=== PATIENT | female | born 1975 | race Caucasian/White ===

== ENCOUNTER 2019-06-10 10:22 | Emergency (ER) | payer SELFPAY ==
[2019-06-10 10:25] VITALS: BP 165/103; PULSE 75; RESP 14; TEMP 36.1; O2SAT 99; BMI 43.0
--- NOTE | 2019-06-10 10:37 | EKG12_ITS ---
Test Reason : CHEST OTHER Blood Pressure : / mmHG Vent. Rate : 067 BPM Atrial Rate : 067 BPM P-R Int : 166 ms QRS Dur : 088 ms QT Int : 406 ms P-R-T Axes : 019 053 041 degrees QTc Int : 429 ms Normal sinus rhythm Nonspecific T wave abnormality Abnormal ECG Confirmed by GERMAN SCHWARTZ, ROB ([id number]), film and video editor AUBRIE JANG ([id number]) on 06/17/2019 10:59:03 AM Referred By: Confirmed By:GRACE PORTER MD
[2019-06-10 11:01] LABS: Absolute Lymphocyte Count 2.71 X10^3/uL (0.83-4.51); Absolute Neutrophil Count 5.9 X10^3/uL (2.0-7.7); Basophil# 0.06 X10^3/uL; Basophil% 0.6 % (0-1); Eosinophil# 0.34 X10^3/uL; Eosinophils% 3.5 % (0-5); Hematocrit 44.9 % (37-47); Hemoglobin 15.2 g/dL (12.0-15.0); Lymphocyte # 2.71 X10^3/ul (4.0); Lymphocyte % 28.1 % (19-41); Mean Corp Hgb Conc 33.9 g/dL (32-36); Mean Corpuscular Hgb 29.5 pg (27.0-32.0); Mean Corpuscular Volume 87.2 fL (81-99); Monocyte# 0.58 X10^3/uL; NRBC Flagged by Analyzer 0 % (0-5); Neutrophil # 5.91 X10^3/uL (2.7-7.7); Neutrophil % 61.5 % (47-70); Platelet Count 307 K/mm3 (150-450); RBC Distribution Width CV 12.9 % (11.6-14.6); RBC Distribution Width SD 41.2 fl (35.1-43.9); Red Blood Count 5.15 M/mm3 (4.2-5.4); White Blood Count 9.6 K/mm3 (4.4-11.0)
[2019-06-10 11:15] LABS: AST(SGOT) 13 U/L (15-37); Alanine Aminotransfer ALT/SGPT 30 U/L (13-56); Albumin, Serum 3.8 g/dL (3.2-5.0); Alkaline Phosphatase 86 U/L (45-117); Anion Gap 11 (5-15); BUN 9 mg/dL (7-18); BUN/Creat Ratio 9.7 RATIO (10-20); Bilirubin, Direct 0.09 mg/dL (0.00-0.30); Calcium,Total 8.7 mg/dL (8.5-10.1); Chloride 101 mmol/L (98-107); Creatinine, Serum 0.93 mg/dL (0.55-1.02); EST Glomerular Filtration Rate 70 mL/min (>60); Est Glom Filt Rate - Afr Amer 85 mL/min (>60); Estimated Creatinine Clearance 70.91 ml/min; Globulin 4.3 g/dL (2.2-4.2); Glucose 135 mg/dL (74-106); Lipase 132 U/L (73-393); Potassium 3.3 mmol/L (3.5-5.1); Protein, Total 8.1 g/dL (6.4-8.2); Sodium Level 139 mmol/L (136-145)
--- NOTE | 2019-06-10 11:26 | CT_ITS ---
STUDY: CTA CHEST REASON FOR EXAM: Female, 43 years old. Acute substernal chest pain RADIATION DOSAGE (If Supplied By Facility): CTDIvol = ( 15.04 ) mGy, DLP = ( 543.81 ) mGycm TECHNIQUE: The examination was performed with the intravenous administration of IV Isovue 370 100mL. Post-processing of the angiographic images was performed, with multiplanar reformation and 3D reconstruction. Individualized dose optimization techniques were used for this CT. COMPARISON: None. FINDINGS: Normal enhancement of the main pulmonary artery and right and left pulmonary arteries. Normal enhancement of the bilateral peripheral pulmonary arteries. There is no demonstrated pulmonary embolism. Normal thoracic aorta and visualized great vessels. There is no demonstrated aortic dissection. Normal heart and pericardium. Normal mediastinum. Normal hilar regions. There is peribronchial thickening. The lungs are well expanded. Normal pulmonary parenchyma. Normal pleura. Normal chest wall structures. Normal osseous structures. Normal visualized upper abdomen. CT/CTA Chest W/WO Contrast IMPRESSION: No demonstrated PE, or thoracic aortic aneurysm or dissection Chronic bronchitis, no superimposed infiltrate or effusion Electronically Signed: Kenrick Dye MD at 12:21 EDT , Service support ,
--- NOTE | 2019-06-10 11:27 | ED.VISSUMM ---
- ER Visit Summary Date of Service: 06/10/19 Chief Complaint: Chest pain History of Present Illness: The patient is a 43 F who presents the emergency department with right-sided chest pain. Patient states that she has had diarrhea for about a month. Now for the past 5 days she has had a dull ache on the right side of her chest that become sharp knifelike when she moves and takes a deep breath. She notes nausea with eating and feels bloated. She denies any cough or shortness of breath. No fevers. No leg swelling recent surgeries or trips. No history of DVT PE. She is a history of endometriosis and has had laparoscopy and hysterectomy. She is also had C-sections. She is a smoker. She tells me her pain in the right upper quadrant and on the right side of her chest seems to get worse when she eats. Physical Examination: Afebrile vital signs are stable Gen: Well-nourished well-developed Head: Normocephalic atraumatic Eyes: Perrl EOMI ENT: TMs clear no rhinorrhea moist mucous membranes Neck: Supple no lymphadenopathy no JVD nontender CVS: Regular rate rhythm no murmurs normal S1-S2 Respiratory: No distress clear to auscultation bilaterally chest nontender however the patient clutches the right upper chest when she goes to left or take a deep breath. Abdomen: Soft mildly tender in the right upper quadrant nondistended normal bowel sounds no masses Back: Nontender Extremity: Nontender no edema Skin: Normal color no rash Neuro: alert orientated ?3 CN II-XII intact normal strength sensation reflexes gait cerebellar Psych: Normal affect normal mood Test Results: EKG showed a sinus rhythm at a rate of 67 with no concerning features of ACS or ectopy. CBC is normal. Chemistries liver lipase normal. Troponin negative. CT Debbi of the chest was negative for pulmonary embolism. Emergency Department Course and Treatment: Gallbladder ultrasound was unable to be performed as the patient has recently ate and the gallbladder is significantly contracted. The patient's chest pain is most likely musculoskeletal/pleurisy. As far as the discomfort in the right upper quadrant and nausea with eating she will need a formal gallbladder ultrasound. I will write for her to have this arranged. She has no primary care physician so I will provide her the back-up physician's name. Impression: 1. Right chest pain This note was generated with Dragon dictation software. It may contain incorrect words, spelling, and punctuation that were not noted in review of the chart prior to signing ED Disposition - Plan for ED Patient: Disposition: Home or Assisted Living Instructions: Pleurisy, BILIARY COLIC with Gallstone (Presumed) Referrals: Tiffany Guerrero MD [STAFF PHYSICIAN] - As soon as possible
[2019-06-10 13:31] VITALS: BP 147/82; PULSE 78; RESP 16; O2SAT 98
== END 2019-06-10 13:32 | disposition home or self-care (01) ==
PROVIDERS: Emergency Provider Emergency Medicine
DX: R07.89 Other chest pain (principal); R10.11 Right upper quadrant pain; R19.7 Diarrhea, unspecified; R11.0 Nausea; F17.200 Nicotine dependence, unspecified, uncomplicated; Z90.710 Acquired absence of both cervix and uterus
CPT/HCPCS: 71275; 80048; 80076; 83690; 84484; 85025; 93005; 99284; Q9967; A4216

== ENCOUNTER 2022-06-11 06:33 | Emergency (ER) | payer BC, SELFPAY ==
[2022-06-11 06:34] VITALS: BP 177/94; PULSE 63; RESP 18; TEMP 36.6; O2SAT 100; BMI 42.5
[2022-06-11 06:39] VITALS: BP 177/94; PULSE 63; RESP 18; TEMP 36.6; O2SAT 100
--- NOTE | 2022-06-11 06:59 | RAD_ITS ---
INDICATION: back pain EXAMINATION/TECHNIQUE: X-RAY - XR Spine Lumbar Min 4 Views: five-view lumbar spine COMPARISON: None. FINDINGS: VERTEBRAE: No fracture or acute compression deformity. Mild chronic anterior vertebral height loss at the thoracolumbar junction.. No spondylolisthesis. Preservation of the normal lumbar lordosis. No significant facet arthropathy. Mild upper lumbar anterior endplate osteophyte formation. DISCS: Disc spaces are maintained. INCLUDED ABDOMEN: Included bowel gas pattern is non-obstructive. Moderate to large colonic stool burden. RAD/L/S Spine Min 4 Views IMPRESSION: No evidence of lumbar spinal fracture or spondylolisthesis. Mild upper lumbar endplate degenerative change. Moderate to large stool burden. Electronically Signed: Hitesh Asif MD at 7:49 EDT ,
--- NOTE | 2022-06-11 07:02 | EDS_ITS ---
HPI History of Present Illness Chief Complaint: Back Narrative Narrative: Patient is a 46-year-old female who reports a past medical history of bulging disks. She states she has had these since she was 20 and has recurrent back pain from them. She states that is typically manageable with tqiw-hvw-cekvdmp medications. She reports on Saturday that she was just bending down to pick something up and she developed increased pain in her low back mainly on the left side. She states she has been trying to control the pain with lsjm-iuh-aficyiu medications but has been more severe than previous. She states that this morning she was in the shower when she felt a pop. She states this sent a jolt throughout her body and the pains been more severe since that time. She denies any direct trauma any fevers chills nausea vomiting or dysuria or hematuria. She denies any loss of bowel or bladder control or IV drug use. However with her history of bulging disc in the past and now worsening pain she presents for evaluation [facility] Home Medications methocarbamol 500 mg tablet 1,000 mg PO 4X/DAY PRN PRN Muscle pain/spasm #56 tabs 06/11/22 [Rx Last Taken Unknown] oxycodone-acetaminophen 5 mg-325 mg tablet (Percocet) 1 tab PO Q6H PRN pain 3 days #12 tabs 06/11/22 [Rx Last Taken Unknown] Allergy/AdvReac Type Severity Reaction Status Date / Time Penicillins [PCN] AdvReac Hives Verified 06/10/19 10:24 Social History Smoking Status: Current some day smoker tobacco type: e-cigarettes ROS ROS ED Constitutional Constitutional ED: Denies chills or fever(s) ENT ENT ED: Denies sore throat Cardiovascular Cardiovascular: Denies chest pain Respiratory/Chest Respiratory/Chest: Denies cough or dyspnea Gastrointestinal Gastrointestinal: Denies abdominal pain, diarrhea, nausea or vomiting Genitourinary Genitourinary ED: Denies dysuria or hematuria Musculoskeletal Musculoskeletal: Reports back pain Integumentary Denies rash Neurologic Neurologic: Denies headache(s) or paresthesias Hematologic/Lymphatic Hematologic/Lymphatic: Denies easy bleeding or easy bruising EXAM Physical Exam Const Vital Signs: 06/11/22 06:34 06/11/22 06:39 Temperature 97.8 F 97.8 F Temperature Source Oral Oral Pulse Rate 63 63 Respiratory Rate 18 18 Blood Pressure 177/94 H 177/94 H Blood Pressure Mean 121 121 Pulse Ox 100 100 Oxygen Delivery Method Room Air Room Air Positive well nourished, well developed and obese General Appearance ED: well developed Nutritional Appearance: obese Eyes PERRL and EOMs intact bilaterally Neck supple Resp normal respiratory effort and clear to auscultation bilaterally Cardio regular rate and regular rhythm Rate: other Other Details: Radial pulses are plus 2 out of 4 bilaterally are equal and symmetric Back/Spine Back/Spine Narrative: No bony deformity or step-off of the thoracic or lumbar spine. However there is midline pain on palpation of the lumbar region. There is also tension and spasm noted of the left paralumbar muscle belly. This pain worsens with extension. There is pain with palpation over top the left piriformis muscle belly as well. No saddle anesthesia. Negative straight leg raise. No clonus or Babinski. Patellar reflexes are plus 2 out of 4 bilaterally. Extremity normal to inspection Neuro oriented x3, CN's II-XII intact bilaterally and no sensory deficits noted Sensorium / Orientation: alert Psych mental status grossly normal Skin no rashes or lesions noted Skin Narrative: No overlying soft tissue changes to suggest trauma or infection MDM MDM MDM Narrative Medical decision making narrative: Patient presented to the ER hypertensive but this is most likely from pain and otherwise with stable vitals. She reported her pain intensified after a bending over motion. She also states there is increased pain with motion indicating this is most likely musculoskeletal in nature. She does not have any red flag symptoms such as loss of bowel or bladder control or high risk behavior such as IV drug use to question epidural abscess or cauda equina syndrome. She has no signs of neurovascular compromise or neuro claudication and therefore do not feel there is need for emergent MRI. Because she has midline pain on palpation a x-ray of the lumbar spine will be obtained to check for compression fracture as well as spinal thesis. At this time her history and exam is most consistent with superficial nerve entrapment from muscle tension/spasm. Therefore she will be given symptomatic care and is otherwise safe for discharge. She will follow-up with orthopedics to discuss need for imaging studies such as MRI if symptoms not improved with symptomatic care Radiography Diagnostic Testing: X-ray of the lumbosacral spine as interpreted by the emergency medicine physician reveals no acute compression fracture or spondylolisthesis Discharge Plan Triage Chief Complaint: Back ED Provider: Andes,Reji Dx/Rx/DC Orders Clinical Impression: Acute lumbosacral myofascial strain, Piriformis syndrome of left side, Bulging lumbar disc Instructions: ED Back Spasm, No Trauma, ED Back Sprain/Strain Prescriptions: New oxycodone-acetaminophen [Percocet] 5-325 mg tablet 1 tab PO Q6H PRN (Reason: pain) 3 Days Qty: 12 0RF methocarbamol 500 mg tablet 1,000 mg PO 4X/DAY PRN PRN (Reason: Muscle pain/spasm) Qty: 56 1RF Primary Care Provider: Care Physician,No Primary Referrals: Sukhjinder Hurst DO [Med Staff - Active Staff] - Care Physician,No Primary [Primary Care Provider] - Activity Restrictions/Additional Instructions: Please continue to stretch and heat your low back to help reduce pain and speed healing. If you are not having improvement after this type of treatment along with the prescribed medication he may need to follow-up with orthopedics to discuss need for further testing such as MRI to further evaluate the cause of your back pain. Please return to the ER should you have any further concerns Disposition Disposition: Home, Self Care
[2022-06-11] MEDS: Ondansetron ODT 4 MG Tablet PO (07:35)
[2022-06-11] MEDS: Morphine 4 MG/ML Syringe 8 MG IM (07:36)
[2022-06-11] MEDS: dexAMETHasone 10 MG/ML Vial IM (07:36)
[2022-06-11] MEDS: Orphenadrine 60 MG/2 ML Ampul IM (07:36)
[2022-06-11 08:17] VITALS: BP 171/82; PULSE 64; RESP 18; O2SAT 98
== END 2022-06-11 08:17 | disposition home or self-care (01) ==
PROVIDERS: Emergency Provider Emergency Medicine; Visit Provider Emergency Medicine
DX: S39.012A Strain of muscle, fascia and tendon of lower back, initial encounter (principal); M51.26 Other intervertebral disc displacement, lumbar region; F17.210 Nicotine dependence, cigarettes, uncomplicated; X58.XXXA Exposure to other specified factors, initial encounter
CPT/HCPCS: 72110; 96372; 99283

== ENCOUNTER → 2022-07-03 | Outpatient (CLI) | payer BC, SELFPAY ==
--- NOTE | 2022-07-03 10:45 | MRI_ITS ---
ACR Level 3 findings have been noted. An addendum which confirms receipt of the report will follow. HISTORY: Spinal stenosis, back and left leg pain x3 weeks. TECHNIQUE: Multiplanar and multisequence MR images of the lumbar spine were obtained without intravenous contrast. 153 images. COMPARISON: XR 06/11/2022. FINDINGS: VERTEBRAE: For the purposes of this report, the lowest intervertebral disc level is designated as L5-S1. Mild degenerative bone marrow endplate changes of T11-T12, T12-L1, L1-2, and L2-3. Vertebral body heights maintained. ALIGNMENT: No significant anterior or posterior subluxation. CONUS: 5 mm x 1.4 cm x 2.3 cm mildly STIR hyperintense and T1 isointense mass in the ventral spinal canal at the T11-12 level displacing and compressing the conus medullaris dorsally with severe spinal canal stenosis. Mass appears contiguous with the disc extrusion and migration at T12-L1 on T1 images but appears separate on T2-weighted images. INTERVERTEBRAL DISCS: T12-L1: Moderate right paracentral disc extrusion with superior migration abutting the mass at the conus with facet arthropathy resulting in moderate-severe central canal stenosis, right nerve root impingement in the thecal sac, and no significant foraminal narrowing. L1-2: Right paracentral disc protrusion with right L2 nerve root impingement and facet arthropathy resulting in mild central canal stenosis and right foraminal narrowing. L2-3: Mild posterior disc bulge osteophyte complex with facet arthropathy resulting in mild central canal stenosis and bilateral foraminal narrowing. L3-4: No significant posterior disc protrusion or central canal stenosis. Facet arthropathy with mild bilateral foraminal narrowing. L4-5: Minimal posterior disc protrusion with facet arthropathy. No significant central canal stenosis. Mild bilateral foraminal narrowing. L5-S1: Mild left paracentral disc protrusion abutting the left S1 nerve root with facet arthropathy resulting in minimal narrowing of the thecal sac and mild left foraminal narrowing. SOFT TISSUES: Posterior subcutaneous edema noted. MRI/Spine Lumbar (Routine) IMPRESSION: Small mass in the spinal canal compressing the conus medullaris with severe spinal canal stenosis. Recommend correlation with postcontrast imaging to assess for neoplasm such as ependymoma, meningioma, or schwannoma versus benign lesion. Right paracentral disc extrusion at T12-L1 with superior migration abutting the mass compressing the conus medullaris and resulting in moderate-severe spinal canal stenosis with right nerve root impingement. Right paracentral disc protrusion at L1-2 resulting in mild spinal canal stenosis and right nerve root impingement. Mild left paracentral disc protrusion at L5-S1 with left nerve root abutment. Electronically Signed: Annabel Marie MD at 12:32 EST ,
== END | disposition home or self-care (01) ==
PROVIDERS: Referring Provider Orthopaedic Surgery; Visit Provider Orthopaedic Surgery
DX: M48.061 Spinal stenosis, lumbar region without neurogenic claudication (principal); M46.96 Unspecified inflammatory spondylopathy, lumbar region; M47.26 Other spondylosis with radiculopathy, lumbar region
CPT/HCPCS: 72148

== ENCOUNTER → 2023-04-16 | Outpatient (CLI) | payer BC, SELFPAY ==
[2023-04-16 12:28] LABS: Absolute Lymphocyte Count 1.89 X10^3/uL (0.83-4.51); Absolute Neutrophil Count 3.4 X10^3/uL (2.0-7.7); Basophil# 0.03 X10^3/uL; Basophil% 0.5 % (0-1); Eosinophil# 0.16 X10^3/uL; Eosinophils% 2.7 % (0-5); Hematocrit 41.9 % (37-47); Hemoglobin 13.8 g/dL (12.0-15.0); Lymphocyte # 1.89 X10^3/ul (0.83-4.51); Lymphocyte % 31.8 % (19-41); Mean Corp Hgb Conc 32.9 g/dL (32-36); Mean Corpuscular Hgb 28.9 pg (27.0-32.0); Mean Corpuscular Volume 87.8 fL (81-99); Mean Platelet Vol. 10.3 fl (6.2-12.0); Monocyte# 0.49 X10^3/uL; Monocyte% 8.2 % (0-10); NRBC Flagged by Analyzer 0 % (0-5); Neutrophil # 3.36 X10^3/uL (2.7-7.7); Neutrophil % 56.6 % (47-70); Platelet Count 264 K/mm3 (150-450); RBC Distribution Width CV 12.9 % (11.6-14.6); RBC Distribution Width SD 41.7 fl (35.1-43.9); Red Blood Count 4.77 M/mm3 (4.2-5.4); White Blood Count 5.9 K/mm3 (4.4-11.0)
[2023-04-16 13:06] LABS: Vitamin D,25 Hydroxy 31.1 ng/mL
[2023-04-16 13:11] LABS: ALB/GLOB Ratio 0.9 RATIO (0.9-2.4); AST(SGOT) 12 U/L (15-37); Alanine Aminotransfer ALT/SGPT 28 U/L (13-56); Albumin, Serum 3.7 g/dL (3.2-5.0); Alkaline Phosphatase 70 U/L (45-117); Anion Gap 5 (5-15); BUN 15 mg/dL (7-18); BUN/Creat Ratio 23.6 RATIO (10-20); Calcium,Total 8.7 mg/dL (8.5-10.1); Chloride 106 mmol/L (98-107); Cholesterol 163 mg/dL (200); Creatinine, Serum 0.64 mg/dL (0.55-1.02); EST Glomerular Filtration Rate 107 mL/min (>60); Est Glom Filt Rate - Afr Amer 129 mL/min (>60); Globulin 3.9 g/dL (2.2-4.2); Glucose 96 mg/dL (74-106); High Density Lipoprotein 51 mg/dL; Potassium 3.8 mmol/L (3.5-5.1); Protein, Total 7.6 g/dL (6.4-8.2); Sodium Level 139 mmol/L (136-145); Thyroid Stim Hormone (TSH) 4.91 uIU/mL (0.358-3.74); Triglycerides 76 mg/dL; Very Low Density Lipoprotein 15 mg/dL (5-40)
[2023-04-17 08:56] LABS: T4 Free Direct 0.99 ng/dL (0.76-1.46)
== END | disposition home or self-care (01) ==
LOC: BIMLAB 08:27
PROVIDERS: Internal Medicine; PCP Internal Medicine; Referring Provider Internal Medicine; Visit Provider Internal Medicine
DX: I10 Essential (primary) hypertension (principal); F32.1 Major depressive disorder, single episode, moderate; E55.9 Vitamin D deficiency, unspecified; R94.6 Abnormal results of thyroid function studies; Z13.6 Encounter for screening for cardiovascular disorders
CPT/HCPCS: 36415; 80053; 80061; 82306; 84439; 84443; 85025

== ENCOUNTER → 2023-04-18 | Outpatient (CLI) | payer BC, SELFPAY ==
--- NOTE | 2023-04-18 16:04 | BI_ITS ---
MAMMOGRAPHY - BILATERAL SCREENING REASON FOR EXAM: Female, 47 years old. Routine annual screening examination. PERTINENT HISTORY: Aunt with breast cancer. No reported personal history of breast cancer. TECHNIQUE: Digital bilateral breast mayela (3D mammographic acquisition) in the CC and MLO projections. 2-D mediolateral oblique (MLO) and craniocaudad (CC) views of both breasts were obtained. CAD: Full Field Digital Mammography with Computer Added Detection was performed. COMPARISON: None. FINDINGS: Breast Composition: There are scattered areas of fibroglandular density. There are no dominant masses or suspicious calcifications. No other significant abnormalities are identified. BI/SCRN MAMM (CAD)W/MAYELA BILAT IMPRESSION: Negative screening mammogram. Yearly followup mammogram recommended. (A) ASSESSMENT CATEGORY: BIRADS Category 1: Negative. A letter regarding these results will be sent to the patient by the facility within 30 days. Approximately 10% of breast cancers are not detected by mammography. A normal mammogram should not delay biopsy of a clinically suspicious abnormality. Electronically Signed: Jason Butterfield DO at 10:47 EDT ,
== END | disposition home or self-care (01) ==
LOC: OPBI 16:02
PROVIDERS: Referring Provider Internal Medicine; Visit Provider Internal Medicine
DX: Z12.31 Encounter for screening mammogram for malignant neoplasm of breast (principal)
CPT/HCPCS: 77063; 77067

== ENCOUNTER → 2023-05-09 | Outpatient (CLI) | payer BC, SELFPAY ==
[2023-05-09 17:15] LABS: T4 Free Direct 0.97 ng/dL (0.76-1.46); Thyroid Stim Hormone (TSH) 5.98 uIU/mL (0.358-3.74)
[2023-05-09 17:22] LABS: T3 Total - Triiodothyronine 1.19 ng/mL (0.6-1.81)
== END | disposition home or self-care (01) ==
LOC: BIMLAB 15:49
PROVIDERS: PCP Internal Medicine; Referring Provider Internal Medicine; Visit Provider Internal Medicine
DX: R94.6 Abnormal results of thyroid function studies (principal)
CPT/HCPCS: 36415; 84439; 84443; 84480

== ENCOUNTER → 2023-06-06 | Outpatient (CLI) | payer BC, SELFPAY ==
[2023-06-06 17:20] LABS: Thyroid Stim Hormone (TSH) 4.94 uIU/mL (0.358-3.74)
== END | disposition home or self-care (01) ==
LOC: BIMLAB 15:33
PROVIDERS: PCP Internal Medicine; Referring Provider Internal Medicine; Visit Provider Internal Medicine
DX: R79.89 Other specified abnormal findings of blood chemistry (principal)
CPT/HCPCS: 36415; 84443

== ENCOUNTER 2023-10-01 06:42 | Day surgery (SDC) | payer BC, SELFPAY ==
[2023-10-01 07:15] VITALS: BP 137/75; PULSE 63; RESP 16; TEMP 37; O2SAT 95; BMI 40.4
[2023-10-01] MEDS: Lactated Ringers 1,000 ML 15 ML IV (07:24)
--- NOTE | 2023-10-01 08:26 | H&P.OPEN ---
HPI - General HPI Narrative SHANNON GALLEGOS, is a 48 F who presents for screening colonoscopy. Patient has never had a colonoscopy in the past. She denies any abdominal pain or nausea or vomiting. She has no blood in the stool. She is not on blood thinners. She has no family history of colon cancer. [facility] Medical History (Updated 09/26/23 @ 12:24 by Ky Brown) Back pain Chronic headaches Electronic cigarette use Elevated TSH Endometriosis History of back problems Hypertension Seasonal allergies Vitamin D deficiency Wears partial dentures Home Medications NK 10/01/23 [History Last Taken Unknown] Allergy/AdvReac Type Severity Reaction Status Date / Time Penicillins [PCN] AdvReac Hives Verified 10/01/23 07:14 Family History (Updated 09/04/23 @ 11:50 by Sindi Merlos) Father Hypertension Diabetes Rheumatoid arthritis Sleep apnea Colon polyps Mother Diabetes Cancer Skin cancer Daughter Thyroid cancer Aunt Breast cancer Grandmother Cancer pancreatic Surgical History delivery delivered H/O: hysterectomy Social History household members: none current occupational status: employed current occupation: [employer] Smoking Status: Current every day smoker tobacco type: e-cigarettes Electronic Cigarette Use: with nicotine alcohol intake: current alcohol intake frequency: holidays/special occasions only substance use type: does not use what type of physical activity do you participate in: walking frequency: daily seatbelt use: sometimes do you feel safe at home: Yes Past Medical/Surgical History Planned Operation Planned Operative Procedure/s: COLONOSCOPY Previous Hospitalizations/Surgeries HX Hospitalizations: No Any Problems With Anesthesia: Yes (PONV) You/Your Family Experience Fever (Hyperthermia) With Anes: No Cholinesterase deficiency: No Cardiovascular Hx Hypertension: No Respiratory Hx Sleep Apnea: No Hx Respiratory Tract Infection/Cold (presently): No Do You Snore Loudly (louder than talking or can be heard): No Do You Often Feel Tired/ Fatigued/ Sleepy Dring Daytime?: No Has Anyone Observed You Stop Breathing During Sleep?: No Result (for STOP score): Negative Smoking Status: Current every day smoker Neurological Does patient have nerve stimulator: No Miscellaneous Recent Exposure to Contagious Disease: No Allergies Penicillins [PCN] Adverse Reaction (Verified 10/01/23 07:14) Hives Discharge After D/C, Where Do you Plan to Go: Return Home Vital Signs Vital Signs Vital Signs: 10/01/23 07:15 10/01/23 07:15 Temperature 98.6 F Temperature Source Temporal Pulse Rate 63 Respiratory Rate 16 Respiratory Pattern Normal Blood Pressure 137/75 H Blood Pressure Mean 95 Blood Pressure Source Monitor Blood Pressure Position Semi-Fowlers Blood Pressure Location Left Forearm Pulse Ox 95 Oxygen Delivery Method Room Air Weight Weight: 243 lb Body Mass Index (BMI) 40.4 Physical Exam Const alert and oriented x3 HEENT normocephalic Eyes PERRL Resp normal respiratory effort and normal air movement Cardio regular rate and regular rhythm GI soft to palpation, non-tender and non-distended Extremity normal to inspection Assessment & Plan Assessment/Plan (1) Encounter for screening for malignant neoplasm of colon: PLAN: I explained endoscopy in detail to the patient. I explained the risks including but not limited to stroke or heart attack with anesthesia, perforation of the GI tract, bleeding, infection. I explained that any of these could necessitate further emergency surgery. The patient understands and all questions were answered sufficiently. The patient wishes to proceed with procedure. Eros Jennings MD Pager: [facility] [address] [place] [address], [address] [place] [address] Office: Surgery Risks - Colonoscopy Risks Include but are not Limited To: Risks include but are not limited to: Bleeding, perforation requiring further surgery, inability to complete colonoscopy requiring barium enema.
--- NOTE | 2023-10-01 08:45 | COLBX_PTH ---
PATIENT: SHANNON GALLEGOS LOC: EN U#:[id number] AGE/SX: 48/F ROOM: RE10/01/[address]: Dr. Eros Jennings MD : 1975 BED: DIS: 10/01/2023 SPEC #: [id number] RECD: 10/01/23 09:40 STATUS: GODWIN FANG #: [id number] NIKKI: 10/01/23 08:[address]: Eros Jennings DEPT: SURGICAL PATHOLOGY RECD BY: Farrah Mendieta ENTERED: 10/01/23 10:14 SP TYPE: COLON BX OTHR DR: Dr. Romina Francois MD Tissues: A - Sigmoid colon biopsy B - Rectum, NOS Procedures: Surgery Specimen Level IV HEADER OPERATION: Colonoscopy - open access, polypectomy PRE-OP DIAGNOSIS: Screening TISSUE SUBMITTED: A - Sigmoid polyp, B - Rectal polyp MICROSCOPIC DIAGNOSIS A. Sigmoid polyp, polypectomy: Tubular adenoma. B. Rectal polyp, polypectomy: Fragments of tubular adenoma. Fragments of fecal material. MEGAN:vielka 10/02/2023 MICROSCOPIC DESCRIPTION Slides are reviewed. GROSS DESCRIPTION A - Received in fixative is one container labeled with the patient's name and designated sigmoid polyp. The specimen consists of a ortega-pink polyp measuring 0.5 x 0.5 x 0.3 cm. The specimen is totally submitted in one cassette. B - Received in fixative is one container labeled with the patient's name and designated rectal polyp. The specimen consists of two fragments of ortega-pink polyp measuring in aggregate 0.9 x 0.8 x 0.4 cm. Multiple fragments of fecal material mixed with ortega-pink soft tissue are also noted. The entire specimen is submitted in one cassette. / MEGAN:vielka 10/01/2023 TC:1 CPT: 52226 x2
[2023-10-01 09:05] VITALS: BP 137/75; BP 137/79; PULSE 67; RESP 16; TEMP 36.3; O2SAT 100
--- NOTE | 2023-10-01 09:08 | OP.COLON_ITS ---
Patient Name: Soco Rocha Procedure Date: 10/01/2023 8:30 AM Date of : 1975 Age: 48 Procedure: Colonoscopy Indications: Screening for colorectal malignant neoplasm Providers: Eros Jennings MD Medicines: Propofol per Anesthesia Patient Profile: This is a 48 year old female. Refer to note in patient chart for documentation of history and physical. Last Colonoscopy: none. The patient's first colonoscopy is today. Complications: No immediate complications. Procedure: Pre-Anesthesia Assessment: - Prior to the procedure, a History and Physical was performed, and patient medications and allergies were reviewed. The patient's tolerance of previous anesthesia was also reviewed. The risks and benefits of the procedure and the sedation options and risks were discussed with the patient. All questions were answered, and informed consent was obtained. Prior Anticoagulants: The patient has taken no anticoagulant or antiplatelet agents. After reviewing the risks and benefits, the patient was deemed in satisfactory condition to undergo the procedure. After I obtained informed consent, the scope was passed under direct vision. Throughout the procedure, the patient's blood pressure, pulse, and oxygen saturations were monitored continuously. The Colonoscope was introduced through the anus and advanced to the cecum, identified by appendiceal orifice and ileocecal valve. The colonoscopy was performed without difficulty. The patient tolerated the procedure well. The quality of the bowel preparation was good. The ileocecal valve, appendiceal orifice, and rectum were photographed. Scope In: 8:40:18 AM Scope Withdrawal Time 0 hours 11 minutes 57 seconds Scope Out: 8:59:44 AM Total Procedure Duration Time 0 hours 19 minutes 26 seconds Findings: Two polyps were found in the rectum and sigmoid colon. The polyps were medium in size. These polyps were removed with a hot snare. Resection and retrieval were complete. The exam was otherwise without abnormality on direct and retroflexion views. Impression: - Two medium polyps in the rectum and in the sigmoid colon, removed with a hot snare. Resected and retrieved. - The examination was otherwise normal on direct and retroflexion views. Recommendation: - Discharge patient to home. - Resume previous diet. - Continue present medications. - Await pathology results. - Repeat colonoscopy in 5 years for surveillance. Procedure Code(s): --- Professional --- 04619, Colonoscopy, flexible; with removal of tumor(s), polyp(s), or other lesion(s) by snare technique Diagnosis Code(s): --- Professional --- Z12.11, Encounter for screening for malignant neoplasm of colon D12.8, Benign neoplasm of rectum D12.5, Benign neoplasm of sigmoid colon CPT copyright 2021 [employer]. All rights reserved. The codes documented in this report are preliminary and upon field reporter review may be revised to meet current compliance requirements. Eros Jennings MD 10/01/2023 9:08:25 AM This report has been signed electronically. Number of Addenda: 0 Note Initiated On: 10/01/2023 8:30 AM
--- NOTE | 2023-10-01 09:08 | OP.CCLET_ITS ---
10/01/2023 Romina Francois Md Re : Colonoscopy procedure for Soco Cedeño Alessandro This procedure was performed on Sunday, October 01, 2023. My impressions and recommendations are as follows: Impressions : - Two medium polyps in the rectum and in the sigmoid colon, removed with a hot snare. Resected and retrieved. - The examination was otherwise normal on direct and retroflexion views. Recommendations : - Discharge patient to home. - Resume previous diet. - Continue present medications. - Await pathology results. - Repeat colonoscopy in 5 years for surveillance. My findings are described in the full procedure note, which is enclosed. If I can be of further assistance, please feel free to contact me at Doctor phone number(s): , Work: . Sincerely, Eros Jennings MD 10/01/2023 9:08:25 AM This report has been signed electronically.
[2023-10-01 09:10] VITALS: BP 137/75; BP 142/82; PULSE 59; RESP 16; O2SAT 100
[2023-10-01 09:15] VITALS: BP 137/75; BP 139/79; PULSE 61; RESP 16; O2SAT 100
[2023-10-01 09:20] VITALS: BP 137/75; BP 147/78; PULSE 60; RESP 16; TEMP 36.3; O2SAT 100
[2023-10-01 09:34] VITALS: BP 137/75
--- NOTE | 2023-10-01 15:36 | PCM.PN.SRG ---
Subjective Subjective The patient had bleeding after colonoscopy today. She reports that she went home and a few hours later she felt like she needed to go the bathroom and it was all blood and she filled the toilet with blood. She had 2 subsequent bloody bowel movements passing large amounts of clot and so she came back. Objective Data Objective Data Vital Signs: Vital Signs Temp Pulse Resp BP Pulse Ox O2 Del Method 97.3 F L 60 16 147/78 H 100 Room Air 10/01/23 09:20 10/01/23 09:20 10/01/23 09:20 10/01/23 09:20 10/01/23 09:20 10/01/23 09:20 Oxygen Delivery Method Room Air Weight: 243 lb Body Mass Index (BMI) 40.4 Intake & Output: Intake and Output for Last 24 Hours 09/29/23 09/30/23 10/01/23 23:59 23:59 23:59 Intake Total 600 / 600 Balance 600 / 600 Assessment & Plan Assessment/Plan (1) Post-polypectomy bleeding: PLAN: The patient is having ongoing bleeding after having a polypectomy this morning during her colonoscopy. I will take her back and perform flexible sigmoidoscopy. One polypectomy site was sigmoid and 1 was in the rectum. I will check out both sites and place clips or inject or cauterize if needed. I discussed this with her in detail and she is in agreement. Eros Jennings MD Pager: [facility] [address] [place] [address], [address] [place] [address] Office:
--- NOTE | 2023-10-01 16:44 | PCM.PN.BLA ---
Progress Note The patient was taken for flexible sigmoidoscopy. The sigmoid polyp site was bleeding with a spurting vessel. 3 clips were placed over this and maintain good hemostasis. The area is irrigated and suctioned dry. The remainder the colon was irrigated and suctioned dry and there was no more active bleeding or clotting. I will check an H&H before she goes home to ensure that she is not anemic at this time. The patient did vomit during the procedure but she was on her side and most of it came out. I will also check a chest x-ray and admit her if there is any concern for aspiration.
[2023-10-01 17:54] LABS: Hematocrit 34.7 % (37-47); Hemoglobin 11.3 g/dL (12.0-15.0)
== END 2023-10-01 09:48 | disposition home or self-care (01) ==
LOC: EN 06:43 → AC 06:44
PROVIDERS: PCP Internal Medicine; Referring Provider Internal Medicine; Visit Provider Surgery
PROC: 0DJD8ZZ Inspection of Lower Intestinal Tract, Via Natural or Artificial Opening Endoscopic (ICD-10-PCS; CPT 45378; principal; 2023-10-01 08:40)
DX: Z12.11 Encounter for screening for malignant neoplasm of colon (principal); D12.5 Benign neoplasm of sigmoid colon; D12.8 Benign neoplasm of rectum; K91.840 Postprocedural hemorrhage of a digestive system organ or structure following a digestive system procedure; I10 Essential (primary) hypertension; F17.290 Nicotine dependence, other tobacco product, uncomplicated; Z83.719 Family history of colon polyps, unspecified
CPT/HCPCS: 45385; 45382; 45334; 85014; 85018; 88305; J2405

== ENCOUNTER → 2024-08-27 | Outpatient (CLI) | payer BC, SELFPAY ==
[2024-08-27 12:24] LABS: Absolute Lymphocyte Count 1.96 X10^3/uL (0.83-4.51); Absolute Neutrophil Count 5.8 X10^3/uL (2.0-7.7); Basophil# 0.05 X10^3/uL; Basophil% 0.6 % (0-1); Eosinophil# 0.14 X10^3/uL; Eosinophils% 1.6 % (0-5); Hematocrit 44.3 % (37-47); Hemoglobin 14.9 g/dL (12.0-15.0); Lymphocyte # 1.96 X10^3/ul (0.83-4.51); Lymphocyte % 22.7 % (19-41); Mean Corp Hgb Conc 33.6 g/dL (32-36); Mean Corpuscular Hgb 29.6 pg (27.0-32.0); Mean Corpuscular Volume 87.9 fL (81-99); Mean Platelet Vol. 10.4 fl (6.2-12.0); Monocyte# 0.62 X10^3/uL; Monocyte% 7.2 % (0-10); NRBC Flagged by Analyzer 0 % (0-5); Neutrophil # 5.83 X10^3/uL (2.7-7.7); Neutrophil % 67.4 % (47-70); Platelet Count 312 K/mm3 (150-450); RBC Distribution Width CV 13.1 % (11.6-14.6); Red Blood Count 5.04 M/mm3 (4.2-5.4); White Blood Count 8.6 K/mm3 (4.4-11.0)
[2024-08-27 12:50] LABS: ALB/GLOB Ratio 0.9 RATIO (0.9-2.4); AST(SGOT) 10 U/L (15-37); Alanine Aminotransfer ALT/SGPT 23 U/L (13-56); Albumin, Serum 3.7 g/dL (3.2-5.0); Alkaline Phosphatase 77 U/L (45-117); Anion Gap 5 (5-15); BUN 13 mg/dL (7-18); BUN/Creat Ratio 19.9 RATIO (10-20); Calcium,Total 8.9 mg/dL (8.5-10.1); Chloride 104 mmol/L (98-107); Cholesterol 188 mg/dL (200); Creatinine, Serum 0.65 mg/dL (0.55-1.02); EST Glomerular Filtration Rate 103 mL/min (>60); Est Glom Filt Rate - Afr Amer 125 mL/min (>60); Globulin 4.1 g/dL (2.2-4.2); Glucose 93 mg/dL (74-106); High Density Lipoprotein 51 mg/dL; Potassium 4.1 mmol/L (3.5-5.1); Protein, Total 7.8 g/dL (6.4-8.2); Sodium Level 134 mmol/L (136-145); Triglycerides 172 mg/dL; Very Low Density Lipoprotein 34 mg/dL (5-40)
== END | disposition home or self-care (01) ==
LOC: BIMLAB 08:15
PROVIDERS: PCP Internal Medicine; Referring Provider Internal Medicine; Visit Provider Internal Medicine
DX: I10 Essential (primary) hypertension (principal); E55.9 Vitamin D deficiency, unspecified; R94.6 Abnormal results of thyroid function studies
CPT/HCPCS: 36415; 80053; 80061; 82306; 84443; 85025

== ENCOUNTER → 2024-08-31 | Outpatient (CLI) | payer BC, SELFPAY ==
--- NOTE | 2024-08-31 17:29 | US_ITS ---
INDICATION: nodule, FH thyroid cancer EXAMINATION: Ultrasound US Thyroid (eg thyroid, parathyroid, parotid) TECHNIQUE: Cordova scale and color doppler imaging was performed of the thyroid gland. COMPARISON: No relevant prior comparison study available FINDINGS: RIGHT THYROID LOBE: 4.9 x 2.4 x 1.7 cm, volume 10.2 mL. Parenchyma: The gland echotexture is heterogeneous. Thyroid vascularity is normal. LEFT THYROID LOBE: 4.5 x 1.6 x 2.0 cm, volume 7.4 mL. Parenchyma: The gland echotexture is heterogeneous. Thyroid vascularity is normal. ISTHMUS: 0.4 cm in maximum AP dimension. Estimated total number of nodules greater than equal to 1 cm: 0. Nurse nodules are described as follows: 1. Location: Right mid Size: 0.7 x 0.6 x 0.5 cm, volume 0.1 mL. Nodule characteristics: Composition: Solid or almost completely solid (2). Echogenicity: Isoechoic (1). Shape: Wider than tall (0). Margins: Smooth (0). Echogenic Foci: None (0). ACR TI-RADS total points: 3. ACR TI-RADS category: 3. 2. Location: [Posterior Size: 0.8 x 0.7 x 0.8 cm, volume 0.2 mL. Nodule characteristics: Composition: Solid or almost completely solid (2). Echogenicity: Hypoechoic (2). Shape: Wider than tall (0). Margins: Smooth (0). Echogenic Foci: None (0). ACR TI-RADS total points: 4. ACR TI-RADS category: 4. LYMPH NODES: No lymphadenopathy is seen in the tissue surrounding the thyroid gland. US/Thyroid IMPRESSION: Heterogeneous thyroid gland with small nodules identified. Based on size and appearance, no specific follow-up is recommended. ACR TI-RADS RECOMMENDATION REFERENCE: Ultrasound-guided fine-needle aspiration, follow-up ultrasound, no further follow-up. *TR 1 (0 points) and TR 2 (2 points): No FNA or follow-up. *TR 3 (3 points): FNA if more than or equal to 2.5 cm in maximum dimension. Follow-up ultrasound in 1, 3, and 5 years if 1.5 to 2.4 cm in maximum dimension. *TR 4 (4-6 points): FNA if more than or equal to 1.5 cm in maximum dimension. Follow-up ultrasound in 1, 2, 3, and 5 years if 1 to 1.4 cm in maximum dimension. *TR 5 (more than or equal to 7 points): FNA if more than or equal to 1 cm in maximum dimension. Follow-up ultrasound every year for 5 years if 0.5 to 0.9 cm in maximum dimension. *TR 3, TR 4, or TR 5 nodules that are below the size threshold for follow-up receive no follow-up. Electronically Signed: Nico Staley MD at 7:16 EST ,
== END | disposition home or self-care (01) ==
LOC: US 17:27
PROVIDERS: PCP Internal Medicine; Referring Provider Internal Medicine; Visit Provider Internal Medicine
DX: E04.1 Nontoxic single thyroid nodule (principal); Z80.8 Family history of malignant neoplasm of other organs or systems
CPT/HCPCS: 76536

== ENCOUNTER → 2024-09-03 | Outpatient (CLI) | payer BC, SELFPAY ==
--- NOTE | 2024-09-03 15:48 | BI_ITS ---
MAMMOGRAPHY - BILATERAL SCREENING REASON FOR EXAM: Female, 49 years old. Routine annual screening examination. PERTINENT HISTORY: Aunt with breast cancer. TECHNIQUE: Digital bilateral breast mayela (3D mammographic acquisition) in the CC and MLO projections. 2-D mediolateral oblique (MLO) and craniocaudad (CC) views of both breasts were obtained. CAD: Full Field Digital Mammography with Computer Added Detection was performed. COMPARISON: Comparison is made with prior study April 18, 2023. FINDINGS: Breast Composition: There are scattered areas of fibroglandular density. There are no dominant masses or suspicious calcifications. Stable small benign-appearing bilateral axillary lymph nodes. No other significant abnormalities are identified. There has been no significant change since the prior study. BI/SCRN MAMM (CAD)W/MAYELA BILAT IMPRESSION: Stable bilateral screening mammogram. Yearly follow-up mammogram recommended. (A) ASSESSMENT CATEGORY: BIRADS Category 2: Benign. A letter regarding these results will be sent to the patient by the facility within 30 days. Approximately 10% of breast cancers are not detected by mammography. A normal mammogram should not delay biopsy of a clinically suspicious abnormality. [id number] Electronically Signed: Tomas Rowe MD at 8:40 EST ,
== END | disposition home or self-care (01) ==
LOC: OPBI 15:48
PROVIDERS: PCP Internal Medicine; Referring Provider Internal Medicine; Visit Provider Internal Medicine
DX: Z12.31 Encounter for screening mammogram for malignant neoplasm of breast (principal)
CPT/HCPCS: 77063; 77067

== ENCOUNTER → 2024-10-22 | Outpatient (CLI) | payer BC, SELFPAY | END | disposition home or self-care (01) | LOC: BIMLAB 16:16 | PROVIDERS: PCP Internal Medicine; Referring Provider Internal Medicine; Visit Provider Internal Medicine | DX: E03.9 Hypothyroidism, unspecified (principal) | CPT/HCPCS: 36415; 84443 ==

== ENCOUNTER → 2025-04-27 | Outpatient (CLI) | payer OTHER, SELFPAY ==
--- OUTSIDE RECORDS SUMMARY | 2025-04-27 23:35 | XMS RPT_ITS | CCD ---
Author Organization [facility] Care Team Providers Care [employer] Name Role Phone ESTEFANIA ZUÑIGA Unavailable Unavailable Unavailable Primary Care Provider Unavailabl e Unavailable Primary Care Provider Unavailabl e Care Physician, No Primary Primary Care Provider Unavailable Care Physician, No Primary Referring Provider Un available Dr. Romina Francois Attending Provider [phone] Dr. Romina Francois Primary Care Provider Dr. Romina Francois Referring Provider [phone] Dr. Romina Francois Primary Care Provider Dr. Romina Francois Attending Provider [phone] Dr. Romina Francois Referring Provider [phone] Sindi Merlos Attending Provider Unavailable Dr. Eros Jennings Attending Provider [phone] Dr. Eros Jennings Other Provider Unavailable Primary Care Provider Unavailabl e GEOVANNA DALEY Attending Unavailable Dr. Romina Francois MD Primary Care Provider [phone] Dr. Romina Francois MD Attending Provider Dr. Romina Francois MD Referring Provider Romina Francois Primary Care Unavailable AlessandroHuy shethia Attending Unavailable Lewis, Romina Referring Unavailable LewisRoimna sheth Attending Unavailable Alessandro, Romina Referring Unavailable Lewis, Romina Primary Care Unavailable Alessandro, Romina Primary Care Unavailable Alessandro, Romina Attending Unavailable Lewis, Romina Referring Unavailable Alessandro, Romina Primary Care Unavailable LewisRomina sheth Attending Unavailable Alessandro, Romina Referring Unavailable Alessandro, Romina Attending Unavailable Romina Francois Referring Unavailable Romina Francois Primary Care Unavailable Meme Santiago Attending Unavailable Romina Francois Referring Unavailable Romina Francois Primary Care Unavailable Alessandro SCHWARTZ, Dr. Vanegas Primary Care Provider [phone] Alessandro SCHWARTZ, Dr. Vanegas Referring Provider Luis APPLICATIONS CHEMIST-CRosa M Attending Provider [phone] Allergies Allergy Classification Reported Allergen(s) Allergy Type Date of Onset Reaction(s) Facility (10 sources) Penicillin; Translations: [PENICILLIN] Drug Allergy 7 [facility] Other [place] (8 sources) Penicillins Propensity to adverse reactions 9 [facility] (1 source) Penicillins Drug allergy (disorder) 5 [facility] Repository Medications Current Medications Medication Drug Class(es) Dates Sig (Normalized) Sig (Original) Blood Pressure Monitor kit (4 sources) Start: 08-27-2024 Blood Pressure Monitor kit Active 0 .Route 1 0 August 27, 2024 10:29am Primary hypertension Essential (primary) hypertension As directed Start: 08-27-2024 Blood Pressure Monitor kit Active 0 .Route 1 August 27, 2024 10:29am As directed Start: 04-11-2023 End: 09-26-2023 Blood Pressure Monitor kit D iscontinued 0 .Route 1 0 April 11, 2023 12:00am September 26, 2023 1:18pm Primary hypertension Essential (primary) hypertension As directed Start: 04-11-2023 End: 09-26-2023 Blood Pressure Monitor kit D iscontinued 0 .Route 1 April 11, 2023 12:00am September 26, 2023 1:18pm As directed cholecalciferol 0.025 mg oral capsule (3 sources) Vitamin D Start: 09-01-2018 Cholecalciferol, Vitamin D3, 25 mcg (1,000 unit) cap Take 1,000 Units by mouth. 09/01/2018 Active Comment on above: Take 1,000 Units by mouth. iv contrast (will be provided with radiology test) (3 sources) Start: 07-12-2022 End: 07-13-2022 inject 1 dose intravenously once iv contrast (will be provided with radiology test) Indications: Thoracic spine tumor MRI TSP Inject, intravenously, once for 1 dose. No IV access, insert saline lock prior to the beginning of sedation, infusion, injection of imaging exam. Discontinue saline lock post exam. If Pt. has a central line or IVAD, may access for administration according to line specific nursing protocol. Once exam is complete flush line and de-access according to line specific nursing protocol in the MR contrast administration guidelines link. 1 Each 0 07/12/2022 07/13/2022 Active Start: 07-12-2022 End: 07-13-2022 iv contrast (will be provide d with radiology test) MRI LSP Inject, intravenously, once for 1 dose. No IV access, insert saline lock prior to the beginning of sedation, infusion, injection of imaging exam. Discontinue saline lock post exam. If Pt. has a central line or IVAD, may access for administration according to line specific nursing protocol. Once exam is complete flush line and de-access according to line specific nursing protocol in the MR contrast administration guidelines link. 1 Each 0 07/12/2022 07/13/2022 Active Start: 07-12-2022 End: 07-12-2022 inject 1 dose intravenously once iv contrast (will be provided with radiology test) Indications: Thoracic spine tumor MRI TSP Inject, intravenously, once for 1 dose. No IV access, insert saline lock prior to the beginning of sedation, infusion, injection of imaging exam. Discontinue saline lock post exam. If Pt. has a central line or IVAD, may access for administration according to line specific nursing protocol. Once exam is complete flush line and de-access according to line specific nursing protocol in the MR contrast administration guidelines link. 1 Each 0 07/12/2022 07/12/2022 Comment on above: MRI TSP Inject, intr avenously, once for 1 dose. No IV access, insert saline lock prior to the beginning of sedation, infusion, injection of imaging exam. Discontinue saline lock post exam. If Pt. has a central line or IVAD, may access for administration according to line specific nursing protocol. Once exam is complete flush line and de-access according to line specific nursing protocol in the MR contrast administration guidelines link. MRI LSP Inject, intr avenously, once for 1 dose. No IV access, insert saline lock prior to the beginning of sedation, infusion, injection of imaging exam. Discontinue saline lock post exam. If Pt. has a central line or IVAD, may access for administration according to line specific nursing protocol. Once exam is complete flush line and de-access according to line specific nursing protocol in the MR contrast administration guidelines link. levothyroxine sodium 0.15 mg oral tablet (5 sources) l-Thyroxine Start: 08-27-19 End: 04-19-20 take 1 tablet by mouth once daily Levothyroxine (Synthroid) 150 mcg tablet Active 150 ug PO daily 90 0 April 19, 2025 3:58pm [place] (Nk) (1 source) Start: 10-01-19 [place] (Nk) Active October 01, 2023 12:00am Completed/Discontinued Medications Medication Drug Class(es) Dates Sig (Normalized) Sig (Original) acetaminophen 325 mg / oxyCODONE hydrochloride 5 mg oral tablet (5 sources) Opioid Agonist Start: 06-11-2022 End: 08-06-2022 oxyCODONE-acetamino phen (PERCOCET) 5-325 mg tablet Take by mouth. 0 06/11/2022 08/06/2022 Discontinued Start: 06-11-2022 take 1 tablet by mendez th every six hours Oxycodone-Acetaminophen (Percocet) 5-325 mg tablet Active 1 TABLET PO EVERY 6 HOURS 12 June 11, 2022 Comment on above: Take by mouth. Blood Pressure Monitor (4 sources) Start: 04-11-2023 End: 09-26-2023 Blood Pressure Monitor Discontinued 0 .Route 1 April 10, 2023 11:00pm September 26, 2023 12:18pm As directed Start: 04-11-2023 Blood Pressure Monitor Active 0 .Route 1 April 11, 2023 12:00am As directed 12 hr dextromethorphan hydrobromide 30 mg / guaiFENesin 600 mg extended release oral tablet (4 sources) Uncompetitive P-wcwmxo-P-aspartate Receptor Antagonist, Sigma-1 Agonist Start: 11-27-2018 End: 08-06-2022 take 1 tablet by mouth twice daily dextromethorphan-guaiFENesin (MUCINEX DM) 30-600 mg per tablet Take 1 tablet by mouth twice daily. 14 tablet 0 11/27/2018 08/06/2022 Discontinued Comment on above: Take 1 tablet by mendez twice daily. diclofenac sodium 50 mg delayed release oral tablet (4 sources) Nonsteroidal Anti-inflammatory Drug Start: 08-08-2018 End: 08-06-2022 take 1 tablet by mouth three times daily diclofenac, EC, (VOLTAREN) 50 mg EC tablet Take 1 tablet by mouth three times daily. 15 tablet 0 08/08/2018 08/06/2022 Discontinued Comment on above: Take 1 tablet by mendez three times daily. hydroCHLOROthiazi de 25 mg oral tablet (9 sources) Thiazide Diuretic Start: 09-01-2018 End: 05-16-2023 hydroCHLOROthiazide 25 mg tablet Take 12.5 mg by mouth. 0 09/01/2018 05/16/2023 Discontinued End: 08-06-2022 hydroCHLOROthiazide (HYDRODI URIL, ESIDRIX) 25 mg tablet hydrochlorothiazide 25 mg tablet 0 08/06/2022 Discontinued Comment on above: hydrochlorothiazide 25 mg tablet Take 12.5 mg by mout h. 12 hr loratadine 5 mg / pseudoephedrine sulfate 120 mg extended release oral tablet (4 sources) alpha-Adrenergic Agonist Start: 2018 End: 2021 take 1 tablet by mouth twice daily loratadine-pseudoep hedrine ER (CLARITIN-D 12) 5-120 mg per tablet Take 1 tablet by mouth twice daily. 24 tablet 0 11/27/2018 08/06/2022 Discontinued Comment on above: Take 1 tablet by mendez twice daily. methocarbamol 500 mg oral tablet (12 sources) Muscle Relaxant Start: 2021 End: 2022 take 2 tablets by mouth four times daily as needed for pain Methocarbamol 500 mg tablet Discontinued 1000 mg PO 4 TIMES DAILY NEEDED as needed for Muscle pain/spasm 56 1 June 11, 2022 7:08am April 11, 2023 1:51pm Start: 06-11-2022 End: 04-11-2023 take 1000 mg by mouth four times daily as needed Methocarbamol Discontinued 1000 MG PO 4 TIMES DAILY NEEDED 56 June 11, 2022 6:08am April 11, 2023 12:51pm Comment on above: TAKE 2 TABLETS BY MO [facility] 4 TIMES DAILY NEEDED FOR MUSCLE PAIN/SPASM methylPREDNISolone 4 mg oral tablet (4 sources) Corticosteroid Start: 2021 End: 2021 methylPREDNISolone (MEDROL DOSE-PACK) 4 mg Dose-Pack TAKE BY MOUTH DIRECTED ON INSIDE OF PACKAGE 0 06/15/2022 08/06/2022 Discontinued Comment on above: TAKE BY MOUTH DIR ECTED ON INSIDE OF PACKAGE naproxen 500 mg oral tablet (4 sources) Nonsteroidal Anti-inflammatory Drug Start: 2021 End: 2021 take 1 tablet by mouth twice daily as needed for pain naproxen (NAPROSYN) 500 mg tablet TAKE 1 TABLET BY MOUTH TWICE DAILY NEEDED FOR PAIN FOR 10 DAYS 0 06/13/2022 08/06/2022 Discontinued Comment on above: TAKE 1 TABLET BY MENDEZ TWICE DAILY NEEDED FOR PAIN FOR 10 DAYS ondansetron 4 mg disintegrating oral tablet (4 sources) Serotonin-3 Receptor Antagonist Start: 2019 End: 2021 take 2 tablets by mouth every eight hours as needed ondansetron orally disintegrating (ZOFRAN ODT) 4 mg disintegrating tablet Take 2 tablets by mouth every 8 hours as needed for Nausea/Vomiting. 12 tablet 0 04/27/2020 08/06/2022 Discontinued Comment on above: Take 2 tablets by mo [facility] every 8 hours as needed for Nausea/Vomiting. 12 hr orphenadrine citrate 100 mg extended release oral tablet (4 sources) Muscle Relaxant Start: 2017 End: 2021 take 1 tablet by mouth twice daily orphenadrine ER (NORFLEX) 100 mg tablet Take 1 tablet by mouth twice daily. 14 tablet 0 08/08/2018 08/06/2022 Discontinued Comment on above: Take 1 tablet by mendez twice daily. oxyCODONE hydrochloride 5 mg oral tablet (11 sources) Opioid Agonist Start: 2021 End: 2022 take 1 tablet by mouth every six hours as needed for pain Oxycodone 5 mg tablet Discontinued 5 mg PO EVERY 6 HOURS as needed for pain 12 3 0 June 11, 2022 April 11, 2023 1:51pm Acute myofascial strain of lumbosacral region Bulging of lumbar intervertebral disc Strain of muscle, fascia and tendon of lower back, initial encounter Other intervertebral disc degeneration, lumbar region pantoprazole 40 mg delayed release oral tablet (4 sources) Proton Pump Inhibitor Start: 2016 End: 2021 take 1 tablet by mouth once daily pantoprazole DR (PROTONIX) 40 mg tablet Take 1 tablet by mouth once daily. 30 tablet 0 07/23/2017 08/06/2022 Discontinued Comment on above: Take 1 tablet by mendez th once daily. Problems Problem Classification Problem Date Documented Date Episodic/Chronic Administrative/social admission (3 sources) Persons encountering health services in other specified circumstances; Translations: [Other reasons for seeking consultation] 04-11-2023 Episodic Complications of surgical procedures or medical care (4 sources) Postoperative hemorrhage; Translations: [Post-polypectomy bleeding] 10-01-2023 Episodic Essential hypertension (15 sources) Hypertensive disorder; Translations: [Essential (primary) hypertension] Onset: 09-20-2024 04-11-2023 Chronic Comment on above: NO PRESCRIBED MEDS Headache; including migraine (7 sources) Tension-type headache, unspecified, intractable; Translations: [Chronic headache disorder] Onset: 08-08-2018 04-11-2023 Episodic Malaise and fatigue (1 source) Lack of energy; Translations: [Other fatigue] 08-27-2024 Episodic Mood disorders (5 sources) Major depressive disorder, single episode, moderate; Translations: [Major depressive affective disorder, single episode, moderate] 04-11-2023 Chronic Neoplasms of unspecified nature or uncertain behavior (3 sources) Neoplastic disease; Translations: [Neoplasm of unspecified behavior of bone, soft tissue, and skin] Episodic Nutritional deficiencies (11 sources) Vitamin D deficiency; Translations: [Vitamin D deficiency, unspecified] Onset: 08-27-2024 04-11-2023 Chronic Other and unspecified benign neoplasm (2 sources) Schwannoma; Translations: [Benign neoplasm of peripheral nerves and autonomic nervous system, unspecified] Episodic Other bone disease and musculoskeletal deformities (6 sources) Lesion of thoracic spine; Translations: [Disorder of bone, unspecified] Episodic Other bone disease and musculoskeletal deformities (1 source) Disorder of bone; Translations: [Disorder of bone, unspecified] Episodic Other bone disease and musculoskeletal deformities (1 source) Disorder of bone, unspecified; Translations: [Lesion of thoracic vertebra] Onset: 05-14-2024 Episodic Other connective tissue disease (5 sources) Other symptoms and signs involving the nervous system; Translations: [Other symptoms involving nervous and musculoskeletal systems] 04-11-2023 Episodic Other connective tissue disease (2 sources) H/O: back problem; Translations: [Personal history of other diseases of the musculoskeletal system and connective tissue] 09-26-2023 Episodic Comment on above: GOES BACK TO IN D EC, BACK PAIN. UNSURE OF CAUSE. Other nervous system disorders (8 sources) Piriformis syndrome; Translations: [Lesion of sciatic nerve, left lower limb] 06-19-2022 Chronic Other nutritional; endocrine; and metabolic disorders (4 sources) Morbid (severe) obesity due to excess calories; Translations: [Morbid obesity] 05-09-2023 Chronic Other nutritional; endocrine; and metabolic disorders (1 source) Body mass index 40+ - severely obese; Translations: [Morbid (severe) obesity due to excess calories] 08-27-2024 Chronic Other screening for suspected conditions (not mental disorders or infectious disease) (20 sources) Raised TSH level; Translations: [Other specified abnormal findings of blood chemistry] Onset: 08-27-2024 04-16-2023 Episodic Other skin disorders (2 sources) Localized swelling, mass and lump, unspecified lower limb; Translations: [Localized superficial swelling, mass, or lump] 06-06-2023 Episodic Other upper respiratory disease (6 sources) Seasonal allergy; Translations: [Other seasonal allergic rhinitis] 04-11-2023 Chronic Residual codes; unclassified (5 sources) Immunization not carried out because of patient refusal; Translations: [Vaccination not carried out because of patient refusal] 04-11-2023 Episodic Residual codes; unclassified (7 sources) Other specified health status; Translations: [Tobacco use disorder] 04-11-2023 Episodic Residual codes; unclassified (1 source) Influenza vaccination declined; Translations: [Immunization not carried out because of patient refusal] 08-27-2024 Episodic Residual codes; unclassified (1 source) Electronic cigarette user; Translations: [Other specified health status] 08-27-2024 Episodic Spondylosis; intervertebral disc disorders; other back problems (8 sources) Disorder of lumbar disc; Translations: [Other intervertebral disc degeneration, lumbar region] 06-19-2022 Chronic Spondylosis; intervertebral disc disorders; other back problems (3 sources) Lumbar radiculopathy; Translations: [Radiculopathy, lumbar region] Onset: 05-14-2024 05-16-2023 Episodic Sprains and strains (8 sources) Lower back injury; Translations: [Strain of muscle, fascia and tendon of lower back, initial encounter] 06-19-2022 Episodic Thyroid disorders (3 sources) Thyroid nodule; Translations: [Nontoxic single thyroid nodule] Onset: 09-22-2024 08-27-2024 Chronic Unclassified (4 sources) H/O: back problem; Translations: [History of back problems] 04-11-2023 Unclassified (1 source) Established Patient Onset: 05-21-2024 Results Test Name Value Interpretation Reference Range Facility TSH DL <= 0.005 mIU/L QnOrde red By: Romina Francois on 10-22-2024 Thyroid Stimulating Hormone (TSH) 0.950 uIU/mL 0.300-4.200 [facility] Thyroid Stim Hormone (TSH)on 10-22-2024 TSH 0.950 uIU/mL Normal 0.300-4.200 [facility] Comment on above: Performed By: #### L [id number] #### [facility] [address] [place], [place], [address] SCRN MAMM (CAD)W/MAYELA BILATo n 09-03-2024 SCRN MAMM (CAD)W/MAYELA BILAT [facility] Imaging Services [address] [place], [place] [address] SCRN MAMM (CAD)W/MAYELA BILAT MR#: [id number] Acct: [id number] Name: SOCO ROCHA Rep #: [id number] : 1975 F 49 From: Tomas brito MD PCP: Dr. Romina Francosi MD Status: REG [facility] Study: SCRN MAMM (CAD)W/MAYELA BILAT Date of Exam: 05/20 Exam# [id number] Ordering Dr: Roimna Francois MD [id number] MAMMOGRAPHY - BILATERAL SCREENING REASON FOR EXAM: Female, 49 years old. Routine annual screening examination. PERTINENT HISTORY: Aunt with breast cancer. TECHNIQUE: Digital bilateral breast mayela (3D mammographic acquisition) in the CC and MLO projections. 2-D mediolateral oblique (MLO) and craniocaudad (CC) views of both breasts were obtained. CAD: Full Field Digital Mammography with Computer Added Detection was performed. COMPARISON: Comparison is made with prior study April 18, 2023. FINDINGS: Breast Composition: There are scattered areas of fibroglandular density. There are no dominant masses or suspicious calcifications. Stable small benign-appearing bilateral axillary lymph nodes. No other significant abnormalities are identified. There has been no significant change since the prior study. BI/SCRN MAMM (CAD)W/MAYELA BILAT IMPRESSION: Stable bilateral screening mammogram. Yearly follow-up mammogram recommended. (A) ASSESSMENT CATEGORY: BIRADS Category 2: Benign. A letter regarding these results will be sent to the patient by the facility within 30 days. Approximately 10% of breast cancers are not detected by mammography. A normal mammogram should not delay biopsy of a clinically suspicious abnormality. [id number] Electronically Signed: Tomas Rowe MD at 8:40 EST , CC: Dr. Romina Francois MD Intelligence Specialist: Signed Normal [facility] Thyroidon 08-31-2024 Thyroid [facility] Imaging Services [address] [place] [address] [id number] Thyroid MR#: [id number] Acct: [id number] Name: SOCO ROCHA Rep #: [id number] : 1975 F 49 From: Nico bello MD PCP: Dr. Romina Francois MD Status: REG CLI Study: Thyroid Date of Exam: 08/31/24 Exam# [id number] Ordering Dr: Romina Francois MD [id number] INDICATION: nodule, FH thyroid cancer EXAMINATION: Ultrasound US Thyroid (eg thyroid, parathyroid, parotid) TECHNIQUE: [place] scale and color doppler imaging was performed of the thyroid gland. COMPARISON: No relevant prior comparison study available FINDINGS: RIGHT THYROID LOBE: 4.9 x 2.4 x 1.7 cm, volume 10.2 mL. Parenchyma: The gland echotexture is heterogeneous. Thyroid vascularity is normal. LEFT THYROID LOBE: 4.5 x 1.6 x 2.0 cm, volume 7.4 mL. Parenchyma: The gland echotexture is heterogeneous. Thyroid vascularity is normal. ISTHMUS: 0.4 cm in maximum AP dimension. Estimated total number of nodules greater than equal to 1 cm: 0. Ordnance Officer nodules are described as follows: 1. Location: Right mid Size: 0.7 x 0.6 x 0.5 cm, volume 0.1 mL. Nodule characteristics: Composition: Solid or almost completely solid (2). Echogenicity: Isoechoic (1). Shape: Wider than tall (0). Margins: Smooth (0). Echogenic Foci: None (0). ACR TI-RADS total points: 3. ACR TI-RADS category: 3. 2. Location: [Posterior Size: 0.8 x 0.7 x 0.8 cm, volume 0.2 mL. Nodule characteristics: Composition: Solid or almost completely solid (2). Echogenicity: Hypoechoic (2). Shape: Wider than tall (0). Margins: Smooth (0). Echogenic Foci: None (0). ACR TI-RADS total points: 4. ACR TI-RADS category: 4. LYMPH NODES: No lymphadenopathy is seen in the tissue surrounding the thyroid gland. US/Thyroid IMPRESSION: Heterogeneous thyroid gland with small nodules identified. Based on size and appearance, no specific follow-up is recommended. ACR TI-RADS RECOMMENDATION REFERENCE: Ultrasound-guided fine-needle aspiration, follow-up ultrasound, no further follow-up. *TR 1 (0 points) and TR 2 (2 points): No FNA or follow-up. *TR 3 (3 points): FNA if more than or equal to 2.5 cm in maximum dimension. Follow-up ultrasound in 1, 3, and 5 years if 1.5 to 2.4 cm in maximum dimension. *TR 4 (4-6 points): FNA if more than or equal to 1.5 cm in maximum dimension. Follow-up ultrasound in 1, 2, 3, and 5 years if 1 to 1.4 cm in maximum dimension. *TR 5 (more than or equal to 7 points): FNA if more than or equal to 1 cm in maximum dimension. Follow-up ultrasound every year for 5 years if 0.5 to 0.9 cm in maximum dimension. *TR 3, TR 4, or TR 5 nodules that are below the size threshold for follow-up receive no follow-up. Electronically Signed: Nico Staley MD at 7:16 EST , CC: Dr. Romina Francois MD Intelligence Specialist: Signed Normal [facility] 64-ED-Oobihtf DOrdered By: Jake Francois on 08-27-2024 Vitamin D 25-Hydroxy 16.0 ng/mL [facility] Comment on above: Vitamin D 25(OH) Sta tus Range Deficiency <20 ng/mL (50nmol/L) Insufficiency 20 - 30 ng/mL (50 - 75 nmol/L) Sufficiency 30 - 100 ng/mL (75 - 250 nmol/L) Toxicity >100 ng/mL (>250 nmol/L) Absolute neutrophil countOrd ered By: Romina Francois on 08-27-2024 Neutrophils (Bld) [#/Vol] 5.8 10*3/uL 2.0-7.7 [facility] Albumin to globulin ratioOrd ered By: Romina Francois on 08-27-2024 Albumin/Globulin [Mass ratio] 0.9 {ratio} 0.9-2.4 [facility] Basophil percentageOrdered B y: Romina Francois on 08-27-2024 Basophils/100 WBC (Bld) 0.6 % 0-1 [facility] Bilirubin, totalOrdered By: Romina Francois on 08-27-2024 Bilirubin [Mass/Vol] 0.30 mg/dL 0.20-1.00 [facility] Comment on above: For patients on eltr ombopag therapy, use of Dimension [place] TBIL is not recommended. Blood urea nitrogen (BUN)/cr eatinine ratioOrdered By: Romina Francois on 08-27-2024 Urea nitrogen/Creatinine [Mass ratio] 19.9 mg/mg 10-20 [facility] CBC W/Diff, Automatedon Absolute Lymph 1.96 X10 3/uL Normal 0.83-4.51 [facility] Comment on above: Performed By: #### L 500.4050, L506.1000, L500.4100, L100.0100, L501.9520 #### [facility] [address] [place], [address] Absolute Neut 5.8 X10 3/uL Normal 2.0-7.7 [facility] Comment on above: Performed By: #### L 500.4050, L506.1000, L500.4100, L100.0100, L501.9520 #### [facility] [address] [place], [address] Basophils/100 WBC (Bld) 0.6 % Normal 0-1 [facility] Comment on above: Performed By: #### L 500.4050, L506.1000, L500.4100, L100.0100, L501.9520 #### [facility] [address] [place], [address] Eosinophils/100 WBC (Bld) 1.6 % Normal 0-5 [facility] Comment on above: Performed By: #### L 500.4050, L506.1000, L500.4100, L100.0100, L501.9520 #### [facility] [address] [place], [address] Erythrocyte distribution width (RBC) [Ratio] 13.1 % Normal 11.6-14.6 [facility] Comment on above: Performed By: #### L 500.4050, L506.1000, L500.4100, L100.0100, L501.9520 #### [facility] [address] [place], [address] Hematocrit (Bld) [Volume fraction] 44.3 % Normal 37-47 [facility] Comment on above: Performed By: #### L 500.4050, L506.1000, L500.4100, L100.0100, L501.9520 #### [facility] [address] [place], [address] Hemoglobin (Bld) [Mass/Vol] 14.9 g/dL Normal 12.0-15.0 [facility] Comment on above: Performed By: #### L 500.4050, L506.1000, L500.4100, L100.0100, L501.9520 #### [facility] [address] [place], [address] IG% 0.500 Normal 0.0-0.9 [facility] Comment on above: Result Comment: IG% - Immature Granulocytes (promyelocytes, myelocytes and metamyelocytes) > 1% indicates that a LEFT SHIFT is Present. Performed By: #### L 500.4050, L506.1000, L500.4100, L100.0100, L501.9520 #### [facility] [address] [place], [address] Lymphocytes/100 WBC (Bld) 22.7 % Normal 19-41 [facility] Comment on above: Performed By: #### L 500.4050, L506.1000, L500.4100, L100.0100, L501.9520 #### [facility] [address] [place], [address] MCH (RBC) [Entitic mass] 29.6 pg Normal 27.0-32.0 [facility] Comment on above: Performed By: #### L 500.4050, L506.1000, L500.4100, L100.0100, L501.9520 #### [facility] [address] [place], [address] MCHC (RBC) [Mass/Vol] 33.6 g/dL Normal 32-36 [facility] Comment on above: Performed By: #### L 500.4050, L506.1000, L500.4100, L100.0100, L501.9520 #### [facility] [address] [place], [address] MCV (RBC) [Entitic vol] 87.9 fL Normal 81-99 [facility] Comment on above: Performed By: #### L 500.4050, L506.1000, L500.4100, L100.0100, L501.9520 #### [facility] [address] [place], [address] Monocytes/100 WBC (Bld) 7.2 % Normal 0-10 [facility] Comment on above: Performed By: #### L 500.4050, L506.1000, L500.4100, L100.0100, L501.9520 #### [facility] [address] [place], [address] Neutrophils/100 WBC (Bld) 67.4 % Normal 47-70 [facility] Comment on above: Performed By: #### L 500.4050, L506.1000, L500.4100, L100.0100, L501.9520 #### [facility] [address] [place], [address] Nucleated RBC (Bld) [#/Vol] 0 10*3/uL Normal 0-5 [facility] Comment on above: Performed By: #### L 500.4050, L506.1000, L500.4100, L100.0100, L501.9520 #### [facility] [address] [place], [address] Platelet mean volume (Bld) [Entitic vol] 10.4 fL Normal 6.2-12.0 [facility] Comment on above: Performed By: #### L 500.4050, L506.1000, L500.4100, L100.0100, L501.9520 #### [facility] [address] [place], [address] Platelets (Bld) [#/Vol] 312 10*3/uL Normal 150-450 [facility] Comment on above: Performed By: #### L 500.4050, L506.1000, L500.4100, L100.0100, L501.9520 #### [facility] [address] [place], [address] RBC (Bld) [#/Vol] 5.04 10*6/uL Normal 4.2-5.4 [facility] Comment on above: Performed By: #### L 500.4050, L506.1000, L500.4100, L100.0100, L501.9520 #### [facility] [address] [place], [address] RDW SD 42.0 fl Normal 35.1-43.9 [facility] Comment on above: Performed By: #### L 500.4050, L506.1000, L500.4100, L100.0100, L501.9520 #### [facility] [address] [place], [address] WBC (Bld) [#/Vol] 8.6 10*3/uL Normal 4.4-11.0 [facility] Comment on above: Performed By: #### L 500.4050, L506.1000, L500.4100, L100.0100, L501.9520 #### [facility] [address] [place], [address] Carbon dioxide measurementOr dered By: Romina Francois on 08-27-2024 CO2 [Moles/Vol] 25.0 mmol/L 21.0-32.0 [facility] Chloride measurementOrdered By: Romina Francois on 08-27-2024 Chloride [Moles/Vol] 104 mmol/L 98-107 [facility] Comprehensive Metabolic Prof ilon 08-27-2024 Albumin [Mass/Vol] 3.7 g/dL Normal 3.2-5.0 [facility] Comment on above: Performed By: #### L 500.4050, L506.1000, L500.4100, L100.0100, L501.9520 #### [facility] [address] [place], [address] Albumin/Globulin [Mass ratio] 0.9 {ratio} Normal 0.9-2.4 [facility] Comment on above: Performed By: #### L 500.4050, L506.1000, L500.4100, L100.0100, L501.9520 #### [facility] [address] [place], [address] ALK P 77 U/L Normal 45-117 [facility] Comment on above: Performed By: #### L 500.4050, L506.1000, L500.4100, L100.0100, L501.9520 #### [facility] [address] [place], [address] ALT [Catalytic activity/Vol] 23 U/L Normal 13-56 [facility] Comment on above: Performed By: #### L 500.4050, L506.1000, L500.4100, L100.0100, L501.9520 #### [facility] [address] [place], [address] AST [Catalytic activity/Vol] 10 U/L Low 15-37 [facility] Comment on above: Performed By: #### L 500.4050, L506.1000, L500.4100, L100.0100, L501.9520 #### [facility] [address] [place], [address] Bilirubin [Mass/Vol] 0.30 mg/dL Normal 0.20-1.00 [facility] Comment on above: Result Comment: For patients on eltrombopag therapy, use of Dimension [place] TBIL is not recommended. Performed By: #### L 500.4050, L506.1000, L500.4100, L100.0100, L501.9520 #### [facility] [address] [place], [address] BUN/CRE 19.9 RATIO Normal 10-20 [facility] Comment on above: Performed By: #### L 500.4050, L506.1000, L500.4100, L100.0100, L501.9520 #### [facility] [address] [place], [address] CA,Total 8.9 mg/dL Normal 8.5-10.1 [facility] Comment on above: Performed By: #### L 500.4050, L506.1000, L500.4100, L100.0100, L501.9520 #### [facility] [address] [place], [address] Chloride [Moles/Vol] 104 mmol/L Normal 98-107 [facility] Comment on above: Performed By: #### L 500.4050, L506.1000, L500.4100, L100.0100, L501.9520 #### [facility] [address] [place], [address] CO2 [Moles/Vol] 25.0 mmol/L Normal 21.0-32.0 [facility] Comment on above: Performed By: #### L 500.4050, L506.1000, L500.4100, L100.0100, L501.9520 #### [facility] [address] [place], [address] Creatinine [Mass/Vol] 0.65 mg/dL Normal 0.55-1.02 [facility] Comment on above: Result Comment: The validity of the calculated GFR GFRAA in patients over 70 years has not been determined. Clinical correlation is essential. Performed By: #### L 500.4050, L506.1000, L500.4100, L100.0100, L501.9520 #### [facility] [address] [place], [address] EST GFR - AA 125 mL/min Normal >60 [facility] Comment on above: Result Comment: Afri can [place] GFR Calc Performed By: #### L 500.4050, L506.1000, L500.4100, L100.0100, L501.9520 #### [facility] [address] [place], [address] GAP 5 Normal 5-15 [facility] Comment on above: Performed By: #### L 500.4050, L506.1000, L500.4100, L100.0100, L501.9520 #### [facility] [address] [place], [address] GFR/1.73 sq M.predicted among non-blacks MDRD (S/P/Bld) [Vol rate/Area] 103 mL/min/{1.73_m2} Normal >60 [facility] Comment on above: Result Comment: Non- GFR Calc Performed By: #### L 500.4050, L506.1000, L500.4100, L100.0100, L501.9520 #### [facility] [address] [place], [address] Globulin (S) [Mass/Vol] 4.1 g/dL Normal 2.2-4.2 [facility] Comment on above: Performed By: #### L 500.4050, L506.1000, L500.4100, L100.0100, L501.9520 #### [facility] [address] [place], [address] Glucose [Mass/Vol] 93 mg/dL Normal 74-106 [facility] Comment on above: Performed By: #### L 500.4050, L506.1000, L500.4100, L100.0100, L501.9520 #### [facility] [address] [place], [address] Potassium [Moles/Vol] 4.1 mmol/L Normal 3.5-5.1 [facility] Comment on above: Performed By: #### L 500.4050, L506.1000, L500.4100, L100.0100, L501.9520 #### [facility] [address] [place], [address] Sodium [Moles/Vol] 134 mmol/L Low 136-145 [facility] Comment on above: Performed By: #### L 500.4050, L506.1000, L500.4100, L100.0100, L501.9520 #### [facility] [address] [place], [address] T PROT 7.8 g/dL Normal 6.4-8.2 [facility] Comment on above: Performed By: #### L 500.4050, L506.1000, L500.4100, L100.0100, L501.9520 #### [facility] [address] [place], [address] Urea nitrogen [Mass/Vol] 13 mg/dL Normal 7-18 [facility] Comment on above: Performed By: #### L 500.4050, L506.1000, L500.4100, L100.0100, L501.9520 #### [facility] [address] [place], [address] Eosinophil percentageOrdered By: Romina Francois on 08-27-2024 Eosinophils/100 WBC (Bld) 1.6 % 0-5 [facility] Erythrocyte distribution wid th ratioOrdered By: Romina Francois on 08-27-2024 Erythrocyte distribution width (RBC) [Ratio] 13.1 % 11.6-14.6 [facility] Erythrocyte distribution wid th standard deviationOrdered By: Romina Francois on 08-27-2024 Erythrocyte distribution width (RBC) [Entitic vol] 42.0 fL 35.1-43.9 [facility] Estimated glomerular filtrat ion rate (GFR) AmericanOrdered By: Romina Francois on 08-27-2024 Estimated GFR (MDRD) Amer 125 mL/min >60 [facility] Comment on above: GFR Calc Glomerular filtration rate ( GFR) estimationOrdered By: Romina Francois on 08-27-2024 Estimated GFR (MDRD) Non-Af Amer 103 mL/min >60 [facility] Comment on above: Non- GFR Calc Glucose measurementOrdered B y: Romina Francois on 08-27-2024 Glucose [Mass/Vol] 93 mg/dL 74-106 [facility] Hematocrit Auto (Bld) [Volum e fraction]Ordered By: Romina Francois on 08-27-2024 Hematocrit (Bld) [Volume fraction] 44.3 % 37-47 [facility] Hemoglobin measurementOrdere d By: Romina Francois on 08-27-2024 Hemoglobin (Bld) [Mass/Vol] 14.9 g/dL 12.0-15.0 [facility] High density lipoprotein (HD L) measurementOrdered By: Romina Francois on 08-27-2024 Cholesterol in HDL [Mass/Vol] 51 mg/dL >40 [facility] Comment on above: The drugs N-Acetylcy steine and Metamizole may falsely depress this assay. Reference Range HDL <40 mg/dL Low HDL Cholesterol HDL >or= 60 mg/dL High HDL Cholesterol Immature granulocytes/100 WB C Auto (Bld)Ordered By: Romina Francois on 08-27-2024 Immature granulocytes/100 WBC (Bld) 0.500 % 0.0-0.9 [facility] Comment on above: IG% - Immature Granu locytes (promyelocytes, myelocytes and metamyelocytes) > 1% indicates that a LEFT SHIFT is Present. Laboratory - Chemistry and C hemistry - challengeOrdered By: Romina Francois on 08-27-2024 AST [Catalytic activity/Vol] 10 U/L Low 15-37 [facility] Lipid Profileon 08-27-2024 Cholesterol [Mass/Vol] 188 mg/dL Normal 200 [facility] Comment on above: Result Comment: <200 mg/dL Desirable 200-240 mg/dL Borderline >240 mg/dL High Risk Performed By: #### L 500.4050, L506.1000, L500.4100, L100.0100, L501.9520 #### [facility] [address] [place], [address] Cholesterol in HDL [Mass/Vol] 51 mg/dL Normal [facility] Comment on above: Result Comment: The drugs N-Acetylcysteine and Metamizole may falsely depress this assay. Reference Range HDL <40 mg/dL Low HDL Cholesterol HDL >or= 60 mg/dL High HDL Cholesterol Performed By: #### L 500.4050, L506.1000, L500.4100, L100.0100, L501.9520 #### [facility] [address] [place], [address] Cholesterol in LDL [Mass/Vol] 103 mg/dL Normal 0-130 [facility] Comment on above: Performed By: #### L 500.4050, L506.1000, L500.4100, L100.0100, L501.9520 #### [facility] [address] [place], [address] Cholesterol in VLDL [Mass/Vol] 34 mg/dL Normal 5-40 [facility] Comment on above: Performed By: #### L 500.4050, L506.1000, L500.4100, L100.0100, L501.9520 #### [facility] [address] [place], [address] Triglyceride [Mass/Vol] 172 mg/dL Normal [facility] Comment on above: Result Comment: The drugs N-Acetylcysteine and Metamizole may falsely depress this assay. Serum Triglycerides Reference Interval Normal <150 mg/dL Borderline high 150 - 199 mg/dL High 200 - 499 mg/dL Very High > or = 500 mg/dL Performed By: #### L 500.4050, L506.1000, L500.4100, L100.0100, L501.9520 #### [facility] [address] [place], [address] Low density lipoprotein (LDL ) cholesterol measurementOrdered By: Romina Francois on 08-27-2024 Cholesterol in LDL [Mass/Vol] 103 mg/dL 0-130 [facility] Lymphocytes Auto (Unsp spec) [#/Vol]Ordered By: Romina Francois on 08-27-2024 Lymphocytes (Bld) [#/Vol] 1.96 10*3/uL 0.83-4.51 [facility] Lymphocytes/100 WBC Auto (Un sp spec)Ordered By: Romina Frnacois on 08-27-2024 Lymphocytes/100 WBC (Bld) 22.7 % 19-41 [facility] MCV (mean corpuscular volume ) determinationOrdered By: Romina Francois on 08-27-2024 MCV (RBC) [Entitic vol] 87.9 fL 81-99 [facility] Mean corpuscular hemoglobin (MCH) determinationOrdered By: Romina Francois on 08-27-2024 MCH (RBC) [Entitic mass] 29.6 pg 27.0-32.0 [facility] Mean corpuscular hemoglobin concentration (MCHC) determinationOrdered By: Romina Francois on 08-27-2024 MCHC (RBC) [Mass/Vol] 33.6 g/dL 32-36 [facility] Mean platelet volume determi nationOrdered By: Romina Francois on 08-27-2024 Platelet mean volume (Bld) [Entitic vol] 10.4 fL 6.2-12.0 [facility] Monocyte percentageOrdered B y: Romina Francois on 08-27-2024 Monocytes/100 WBC (Bld) 7.2 % 0-10 [facility] Neutrophil percentageOrdered By: Romina Francois on 08-27-2024 Neutrophils/100 WBC (Bld) 67.4 % 47-70 [facility] Nucleated red blood cell per centageOrdered By: Romina Francois on 08-27-2024 Nucleated RBC/100 WBC (Bld) [Ratio] 0 % 0-5 [facility] Platelet countOrdered By: Galileo Francois on 08-27-2024 Platelets (Bld) [#/Vol] 312 10*3/uL 150-450 [facility] Potassium measurementOrdered By: Romina Francois on 08-27-2024 Potassium [Moles/Vol] 4.1 mmol/L 3.5-5.1 [facility] RBC Auto (Bld) [#/Vol]Ordere d By: Romina Francois on 08-27-2024 RBC (Bld) [#/Vol] 5.04 10*6/uL 4.2-5.4 [facility] Serum anion gap measurementO rdered By: Romina Francois on 08-27-2024 Anion gap [Moles/Vol] 5 mmol/L 5-15 [facility] Serum globulin measurementOr dered By: Romina Francois on 08-27-2024 Globulin (S) [Mass/Vol] 4.1 g/dL 2.2-4.2 [facility] Serum or plasma alanine woodson otransferase (ALT) measurementOrdered By: Romina Francois on 08-27-2024 ALT [Catalytic activity/Vol] 23 U/L 13-56 [facility] Serum or plasma albumin roberto urement (mass/volume)Ordered By: Romina Francois on 08-27-2024 Albumin [Mass/Vol] 3.7 g/dL 3.2-5.0 [facility] Serum or plasma alkaline chiki sphatase measurementOrdered By: Romina Francois on 08-27-2024 ALP [Catalytic activity/Vol] 77 U/L 45-117 [facility] Serum or plasma calcium roberto urement (mass/volume)Ordered By: Romina Francois on 08-27-2024 Calcium [Mass/Vol] 8.9 mg/dL 8.5-10.1 [facility] Serum or plasma cholesterol measurement (mass/volume)Ordered By: Romina Francois on 08-27-2024 Cholesterol [Mass/Vol] 188 mg/dL <200 [facility] Comment on above: <200 mg/dL Desirable 200-240 mg/dL Borderline >240 mg/dL High Risk Serum or plasma creatinine m easurement (mass/volume)Ordered By: Romina Francois on 08-27-2024 Creatinine [Mass/Vol] 0.65 mg/dL 0.55-1.02 [facility] Comment on above: The validity of the calculated GFR & GFRAA in patients over 70 years has not been determined. Clinical correlation is essential. Serum or plasma urea nitroge n measurement (mass/volume)Ordered By: Romina Francois on 08-27-2024 Urea nitrogen [Mass/Vol] 13 mg/dL 7-18 [facility] Sodium levelOrdered By: Huy Francois on 08-27-2024 Sodium [Moles/Vol] 134 mmol/L Low 136-145 [facility] TSH QnOrdered By: Romina boyce on 08-27-2024 Thyroid Stimulating Hormone (TSH) 5.660 uIU/mL High 0.358-3.740 [facility] Thyroid Stim Hormone (TSH)on 08-27-2024 TSH 5.660 uIU/mL High 0.358-3.740 [facility] Comment on above: Performed By: #### L 500.4050, L506.1000, L500.4100, L100.0100, L501.9520 #### [facility] [address] [place], [address] Total proteinOrdered By: Ranjith Francois on 08-27-2024 Protein [Mass/Vol] 7.8 g/dL 6.4-8.2 [facility] Triglycerides measurementOrd ered By: Romina Francois on 08-27-2024 Triglyceride [Mass/Vol] 172 mg/dL <199 [facility] Comment on above: The drugs N-Acetylcy steine and Metamizole may falsely depress this assay.Serum Triglycerides Reference Interval Normal <150 mg/dL Borderline high 150 - 199 mg/dL High 200 - 499 mg/dL Very High > or = 500 mg/dL Very low density lipoprotein (VLDL) cholesterol measurementOrdered By: Romina Francois on 08-27-2024 VLDL Cholesterol 34 mg/dL 5-40 [facility] Vitamin D,25 Hydroxyon 08-27 Vitamin D 25-OH 16.0 ng/mL Normal [facility] Comment on above: Result Comment: Hali min D 25(OH) Status Range Deficiency <20 ng/mL (50nmol/L) Insufficiency 20 - 30 ng/mL (50 - 75 nmol/L) Sufficiency 30 - 100 ng/mL (75 - 250 nmol/L) Toxicity >100 ng/mL (>250 nmol/L) Performed By: #### L 500.4050, L506.1000, L500.4100, L100.0100, L501.9520 #### [facility] [address] [place], [place], [id number] White blood cell (WBC) count Ordered By: Romina Francois on 08-27-2024 WBC (Bld) [#/Vol] 8.6 10*3/uL 4.4-11.0 [facility] Internal Medicine Office Vis jeni 08-13-2024 Internal Medicine Office Visit [facility] [address] [place] [address] [address] [place] [address] OFFICE VISIT Date of Service: 08/27/24 MR#: [id number] Acct: [id number] Name: SOCO ROCHA Rep #: [id number] : 1975 Provider: Dr. Romina moody MD Age/Sex: 49/F Location: [facility] Status: Signed Intake Vital Signs 10/01/23 14:01 08/27/24 07:37 Height 5 ft 5 in 5 ft 5 in Weight: 244 lb BMI 40.6 BP 132/82 H Blood Pressure Location Lt brachial Position Sitting Respiration 16 Pulse 64 Pulse Source Monitor Temp 97.4 F L Temp Source Temporal Pulse Oximetry (%) 98 Oxygen Delivery Method room air Intake Visit Reasons: THYROID CHECK AND DISCUSS BP [facility] Required: No Is patient in pain?: No Allergies Penicillins (PCN) Adverse Reaction (Verified 08/27/24 07:31) Hives Medications ???Medication ???Instructions ???Recorded ???Confirmed ???Type NK 10/01/23 08/27/24 History blood pressure monitor #1 ea 08/27/24 08/27/24 Rx Nurse's Note: States she was unable to get a tooth pulled at dentist 2 weeks ago because her BP was 168/100 eventually ended up getting it pulled as she went back and it was elevated but not as bad. Has not been monitoring at home. States her face got red when bp was high and gets a tightness in chest that comes and goes when bp is high. [facility] Medical History Wears partial dentures Back pain Electronic cigarette use Elevated TSH Endometriosis Vitamin D deficiency Hypertension Chronic headaches History of back problems Seasonal allergies Surgical History delivery delivered H/O: hysterectomy Family History Father Hypertension Diabetes Rheumatoid arthritis Sleep apnea Colon polyps Mother Diabetes Cancer Skin cancer Daughter Thyroid cancer Aunt Breast cancer Grandmother Cancer pancreatic Social History (Updated 08/27/24 @ 07:[address] Romina Francois MD) household members: none current occupational status: employed current occupation: [employer] Smoking Status: Current every day smoker tobacco type: e-cigarettes Electronic Cigarette Use: with nicotine alcohol intake: current alcohol intake frequency: holidays/special occasions only substance use type: does not use what type of physical activity do you participate in: walking frequency: daily seatbelt use: sometimes do you feel safe at home: Yes HPI HPI Details: SOCO ROCHA, is a 49 F who presents to the office today for a follow up. She hasn't been seen in over a year. She is due for some routine blood work and screening. She doesn't want her flu shot. She does smoke e-cigarettes. She reports she isn't ready to quit yet. She has tried nicotine replacement in the past and didn't tolerate it. She reports she is eating healthy and tries to stay under 2000 calories per day and staying active at work. The patient reports she had some tooth problems. She went to the dentist and it was 168/110. She feels that it may have been in pain, but was told she needed to see her doctor. She hasn't been checking her blood pressure at home stating she never got a cuff as ordered. She has been trying to monitor her diet and salt intake. She reports she drinks one coke zero per day in terms of caffeine. The patient continues to struggle in terms of her weight. She reports on a typical day, she will have around 2 hard boiled eggs in the morning. At lunch, she will have apples and peanut butter or soup. She reports for dinner, she will usually have higher protein meals without the carbohydrates. She reports for snacks, she will often have veggies. She reports she doesn't do any formal exercise due to her work schedule. She also has concerns about her energy level. She reports she feels tired and has no motivation to do things. She reports she hasn't been sleeping well and thinks that is related. She reports she will fall asleep and sleep for a couple of hours. She will wake up to use the restroom and then can't go back to sleep. She reports she does occasionally snore and has woken herself up with that. She states she doesn't wake up gasping for air and has never been told she stops breathing at night. She states she isn't sure if is related to her being unable to get comfortable. She doesn't feel that she is depressed or anxious. ROS Const Constitutional: Positive for headache(s), decreased energy and snoring; No body ache, chills, excessive sweating, fatigue, fever(s), frequent falls, weakness, weight change, sleep problems or change in appetite Eyes Eyes: No blurry vision, change in vision, eye pain or Light sensitivity ENT ENT: Positive for tinnitus (chronic, unchanged) and head (more content not included)... [facility] Office Visit ([facility] M) -------- SOCO ROCHA ([id number]) 1975 F Date Time Provider Department 05/21/24 3:45 PM GEOVANNA DALEY [facility] During your visit today, we recorded the following information about you: Pulse Blood pressure Weight Height 62/minute 137/80 109.8 kg 1.651 m Geovanna Daley MD, PhD 05/21/2024 4:57 PM Signed NEUROSURGERY FOLLOW UP OFFICE NOTE Geovanna Daley MD, PhD Date of visit: May 21, 2024 Patient Name: Ms.Tracy Rosalie Rocha Date of : 1975 Current Age: [age] year old Sex: female MRN/E# [id number] Last Office Visit: Visit date not found Chief Complaint: Patient presents with: Established Patient SUBJECTIVE: HPI The patient was last evaluated in the office on 10/29/2022 with resolution of her lumbar pain. She noted at times, left lateral calf pain that was intermittent in nature. She noted an increase of headaches and pain to the base of her skull and cervical. She noted with driving her arms and hands will become numb. She noted having to sleep in in a chair. She noted dropping items and difficulties with fine motor. It was recommended that she follow up in 6 months. At her last visit on 05/16/2023 she stated she had been doing well since her last visit. She noted intermittent left lateral calf pain and low back pain. She noted flare ups of the back and calf pain. She continued with headaches and cervical pain that radiated up the base of her skull. She noted her hands and arms are numb with driving. She denied dropping items or fine motor difficulties. 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 This has been causing cord impingement but she has not had any neurological symptoms. It was recommended that she follow up in 1 year with a repeat MRI, prompting her visit today. Today she states she has been doing well since her last visit. She continues with intermittent low back pain with pain into the calf at times. Endorses numbness and tingling into the legs and feet. Continues with cervical pain and headaches up the base of her skull. Notes paresthesia with her arms up driving. Notes if she sleeps in a recliner her cervical pain resolves. She denies any falls, loss of bowel or bladder. She presents for imaging review, evaluation and plan of care. Symptoms: left lateral calf pain. Intermittent left lumbar pain with increased activity. Smoker: endorses. 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 PAST MEDICAL HISTORY Diagnosis Date Disorder of thyroid PAST SURGICAL HISTORY Procedure Laterality Date SECTION HX HYSTERECTOMY HX FAMILY HISTORY Problem Relation Age of Onset Diabetes Mother Diabetes Father Rheumatologic disease Father ALLERGIES Allergen Reactions Penicillin Hives Current Outpatient Medications Medication Sig Dispense Refill Cholecalciferol, Vitamin D3, 25 mcg (1,000 unit) cap Take 1,000 Units by mouth. (Patient not taking: Reported on 05/21/2024) No current facility-administered medications for this visit. REVIEW OF SYSTEMS Review of Systems Constitutional: Negative for chills, fatigue and fever. HENT: Negative for congestion and sore throat. Eyes: Negative for discharge, itching and visual disturbance. Respiratory: Negative for cough and shortness of breath. Cardiovascular: Negative for chest pain and palpitations. Gastrointestinal: Negative for constipation, diarrhea, nausea and vomiting. Endocrine: Negative for cold intolerance and heat intolerance. Genitourinary: Negative for difficulty urinating, frequency and urgency. Musculoskeletal: Positive for back pain, neck pain and neck stiffness. Negative for gait problem. Skin: Negative for rash and wound. Allergic/Immunologic: Negative for environmental allergies and food allergies. Neurological: Positive for numbness and headaches. Negative for dizziness, weakness and light-headedness. Hematological: Does not bruise/bleed easily. Psychiatric/Behavioral: Negative for agitation. The patient is not nervous/anxious. OBJECTIVE: BP 137/80 Pulse 62 Ht 5' 5 (1.65m) Wt 242 lb 1 oz (109.8kg) SpO2 97% BMI 40.28 kg/(m2). Physical Exam General Examination BP 137/80 (BP Site: Left Arm, BP Position: Sitting, BP Cuff Size: Extra Large Adult) Pulse 62 Ht 5' 5 (1.651 m) Wt 242 lb 1 oz (109.8 kg) SpO2 97% BMI 40.28 kg/m? General Exam Neurological Exam Mental Status Soco has lower midline lumbar tenderness for soft tissues over her upper sacrum. Motor Examination and Coordination Neuromuscular Examination Extremity Muscles Lower Extremity Right Left Hip flexio (more content not included)... Normal [facility] MRI THORACIC SPINE WO IVCONo n 05-14-2024 MRI THORACIC SPINE WO IVCON * * *Final Report* * * DATE OF EXAM: May 14 2024 1:57PM A1M 0325 - MRI THORACIC SPINE WO IVCON / PROCEDURE REASON: multiple diagnoses * * * * Physician Interpretation * * * * COMPARISON: 07/18/2022. HISTORY: Lesion of thoracic vertebra. TECHNIQUE: MRI thoracic spine without contrast. MQ: [id number] RESULT: MRI THORACIC SPINE: Acute abnormality: None. Incompletely evaluated spondylotic and discogenic degenerative changes within the lumbar spine which may be characterized by dedicated lumbar spine MRI if clinically indicated. Osteopenic patchy marrow signal within the thoracic spine remain stable. Again identified are multiple Schmorl's node within the thoracic disc spaces with decreased disc height and signal indicating disc degeneration with minimal posterior bulges within the lower thoracic spine. These slightly efface ventral CSF but dorsal CSF is still maintained without any thecal sac or spinal cord impingement or compression. No evidence for myelomalacia or cord edema is identified in these changes remain relatively stable when compared to prior study. Upper thoracic spine reveals normal intervertebral disc height/signal which also remains stable. Essentially stable alignment, vertebral height, marrow signal, soft tissues, central canal, thecal sac and spinal cord signal/caliber. No fracture/dislocation. T1 -- 2: Patent canal and foramina. T2 -- 3: Patent canal and foramina. T3 -- 4: Patent canal and foramina. T4 -- 5: Patent canal and foramina. T5 -- 6: Patent canal and foramina. T6 -- 7: Patent canal and foramina. T7 -- 8: Patent canal and foramina. T8 -- 9: Disc bulge. Patent canal and foramina. T9 -- 10: Disc bulge with central annular tear and small protrusion. Patent canal/foramina. T10 -- 11: Disc bulge with central annular tear and small protrusion. Patent canal/foramina. T11 -- 12: Disc bulge. Patent canal and foramina. T12 -- L1: Right eccentric disc bulge with annular tear and protrusion. Patent canal and foramina. IMPRESSION: 1. 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 2. T11-12 lesion in question represents disc protrusion effacing ventral CSF. 3. No focal area of significant thoracic canal/foramina narrowing. COUNTING REFERENCE: Inferior lumbar disc is taken as L5-S1. Structural anomalies: None. Intelligence Specialist: [facility] Transcribe Date/Time: May 18 2024 10:07A Dictated by : ISHAAN ALBA MD This examination was interpreted and the report reviewed and electronically signed by: ISHAAN ALBA MD on May 19 2024 8:37PM EST [id number] Normal [facility] No Panel InformationOrdered By: Romina Francois on 06-06-2023 Thyroid Stimulating Hormone (TSH) 4.94 uIU/mL 0.358-3.74 [facility] Laboratory - Chemistry and C hemistry - challengeOrdered By: Romina Francois on 05-09-2023 Free T4 [Mass/Vol] 0.97 ng/dL 0.76-1.46 [facility] No Panel InformationOrdered By: Romina Francois on 05-09-2023 Thyroid Stimulating Hormone (TSH) 5.98 uIU/mL 0.358-3.74 [facility] Total Triiodothyronine 1.19 ng/mL 0.6-1.81 [facility] Absolute lymphocyte countOrd ered By: Romina Francois on 04-16-2023 Lymphocytes Auto (Unsp spec) [#/Vol] 1.89 10*3/uL 0.83-4.51 [facility] Basophil percentageOrdered B y: Romina Francois on 04-16-2023 Basophils/100 WBC (Bld) 0.5 % 0-1 [facility] Bilirubin [Mass/Vol] 0.50 mg/dL 0.20-1.00 [facility] Comment on above: For patients on eltr ombopag therapy, use of Dimension [place] TBIL is not recommended. Chloride [Moles/Vol] 106 mmol/L 98-107 [facility] Cholesterol [Mass/Vol] 163 mg/dL <200 [facility] Comment on above: <200 mg/dL Desirable 200-240 mg/dL Borderline >240 mg/dL High Risk Eosinophils/100 WBC (Bld) 2.7 % 0-5 [facility] Glucose [Mass/Vol] 96 mg/dL 74-106 [facility] Neutrophils (Bld) [#/Vol] 3.4 10*3/uL 2.0-7.7 [facility] Neutrophils/100 WBC (Bld) 56.6 % 47-70 [facility] Potassium [Moles/Vol] 3.8 mmol/L 3.5-5.1 [facility] Protein [Mass/Vol] 7.6 g/dL 6.4-8.2 [facility] Sodium [Moles/Vol] 139 mmol/L 136-145 [facility] Triglyceride [Mass/Vol] 76 mg/dL <199 [facility] Comment on above: The drugs N-Acetylcy steine and Metamizole may falsely depress this assay.Serum Triglycerides Reference Interval Normal <150 mg/dL Borderline high 150 - 199 mg/dL High 200 - 499 mg/dL Very High > or = 500 mg/dL WBC (Bld) [#/Vol] 5.9 10*3/uL 4.4-11.0 [facility] Blood erythrocytes count (nu mber/volume)Ordered By: Romina Francois on 04-16-2023 RBC (Bld) [#/Vol] 4.77 10*6/uL 4.2-5.4 [facility] Blood hemoglobin measurement (mass/volume)Ordered By: Romina Francois on 04-16-2023 Hemoglobin (Bld) [Mass/Vol] 13.8 g/dL 12.0-15.0 [facility] Blood lymphocytes/100 leukoc ytesOrdered By: Romina Francois on 04-16-2023 Lymphocytes/100 WBC (Bld) 31.8 % 19-41 [facility] Blood monocytes/100 leukocyt esOrdered By: Romina Francois on 04-16-2023 Monocytes/100 WBC (Bld) 8.2 % 0-10 [facility] Blood platelet mean volumeOr dered By: Romina Francois on 04-16-2023 Platelet mean volume (Bld) [Entitic vol] 10.3 fL 6.2-12.0 [facility] Determination of erythrocyte mean corpuscular volume (MCV)Ordered By: Romina Francois on 04-16-2023 MCV (RBC) [Entitic vol] 87.8 fL 81-99 [facility] Hematocrit Auto (Bld) [Volum e fraction]Ordered By: Romina Francois on 04-16-2023 Hematocrit (Bld) [Volume fraction] 41.9 % 37-47 [facility] - Chemistry and C hemistry - challengeOrdered By: Romina Francois on 04-16-2023 ALP [Catalytic activity/Vol] 70 U/L 45-117 [facility] ALT [Catalytic activity/Vol] 28 U/L 13-56 [facility] CO2 [Moles/Vol] 28.0 mmol/L 21.0-32.0 [facility] Globulin (S) [Mass/Vol] 3.9 g/dL 2.2-4.2 [facility] Urea nitrogen/Creatinine [Mass ratio] 23.6 mg/mg 10-20 [facility] - Chemistry and C hemistry - challengeOrdered By: Jenelle Bey on 04-16-2023 Free T4 [Mass/Vol] 0.99 ng/dL 0.76-1.46 [facility] - Hematology and Cell countsOrdered By: Romina Francois on 04-16-2023 Erythrocyte distribution width (RBC) [Entitic vol] 41.7 fL 35.1-43.9 [facility] Erythrocyte distribution width (RBC) [Ratio] 12.9 % 11.6-14.6 [facility] Immature granulocytes/100 WBC (Bld) 0.200 % 0.0-0.9 [facility] Comment on above: IG% - Immature Granu locytes (promyelocytes, myelocytes and metamyelocytes) > 1% indicates that a LEFT SHIFT is Present. MCH (RBC) [Entitic mass] 28.9 pg 27.0-32.0 [facility] Nucleated RBC/100 WBC (Bld) [Ratio] 0 % 0-5 [facility] MCHC Auto (RBC) [Mass/Vol]Or dered By: Romina Francois on 04-16-2023 MCHC (RBC) [Mass/Vol] 32.9 g/dL 32-36 [facility] No Panel InformationOrdered By: Romina Francois on 04-16-2023 Estimated GFR (MDRD) Amer 129 mL/min >60 [facility] Comment on above: GFR Calc Estimated GFR (MDRD) Non-Af Amer 107 mL/min >60 [facility] Comment on above: Non- GFR Calc Thyroid Stimulating Hormone (TSH) 4.91 uIU/mL 0.358-3.74 [facility] Vitamin D 25-Hydroxy 31.1 ng/mL [facility] Comment on above: Vitamin D 25(OH) Sta tus Range Deficiency <20 ng/mL (50nmol/L) Insufficiency 20 - 30 ng/mL (50 - 75 nmol/L) Sufficiency 30 - 100 ng/mL (75 - 250 nmol/L) Toxicity >100 ng/mL (>250 nmol/L) Platelets bldOrdered By: Ranjith Francois on 04-16-2023 Platelets (Bld) [#/Vol] 264 10*3/uL 150-450 [facility] Serum or plasma albumin roberto urement (mass/volume)Ordered By: Romina Francois on 04-16-2023 Albumin [Mass/Vol] 3.7 g/dL 3.2-5.0 [facility] Serum or plasma albumin/glob ulin mass ratioOrdered By: Romina Francois on 04-16-2023 Albumin/Globulin [Mass ratio] 0.9 {ratio} 0.9-2.4 [facility] Serum or plasma calcium roberto urement (mass/volume)Ordered By: Romina Francois on 04-16-2023 Calcium [Mass/Vol] 8.7 mg/dL 8.5-10.1 [facility] Serum or plasma cholesterol in HDL measurement (mass/volume)Ordered By: Romina Francois on 04-16-2023 Cholesterol in HDL [Mass/Vol] 51 mg/dL >40 [facility] Comment on above: The drugs N-Acetylcy steine and Metamizole may falsely depress this assay. Reference Range HDL <40 mg/dL Low HDL Cholesterol HDL >or= 60 mg/dL High HDL Cholesterol Serum or plasma cholesterol in VLDL measurement (mass/volume)Ordered By: Romina Francois on 04-16-2023 Cholesterol in VLDL [Mass/Vol] 15 mg/dL 5-40 [facility] Serum or plasma creatinine m easurement (mass/volume)Ordered By: Romina Francois on 04-16-2023 Creatinine [Mass/Vol] 0.64 mg/dL 0.55-1.02 [facility] Comment on above: The validity of the calculated GFR & GFRAA in patients over 70 years has not been determined. Clinical correlation is essential. Serum or plasma low density lipoprotein (LDL) cholesterol measurement (mass/volume)Ordered By: Romina Francois on 04-16-2023 Cholesterol in LDL [Mass/Vol] 97 mg/dL 0-130 [facility] Serum or plasma urea nitroge n measurement (mass/volume)Ordered By: Romina Francois on 04-16-2023 Urea nitrogen [Mass/Vol] 15 mg/dL 7-18 [facility] Thin prep Papanicolaou smear with manual screeningOrdered By: Romina Francois on 04-16-2023 Thin prep Papanicolaou smear with manual screening 12 U/L 15-37 [facility] Thin prep Papanicolaou smear with manual screening 5 15 [facility] ALLIED HEALTHon 04-27-2020 ALLIED HEALTH HNO ID: [id number] Author: JOSE Sarmiento (Ct) Service: ? Author Type: Clinical Ladle Repairman Type: Allied Health Filed: 04/27/2020 10:12 AM Note Text: Radiology Service Progress Note PATIENT NAME: Soco Rocha DATE OF SERVICE: April 27, 2020 TIME: 10:11 AM PATIENT IDENTITY VERIFICATION COMPLETED USING TWO (2) IDENTIFIERS: Name and Date of confirmed by patient verbally. FALL SCREENING: Has the patient had 2 falls in the last year or 1 fall with injury or currently using an Ambulatory Assistive Device (Walker, Cane, Wheelchair, Crutches, etc.)? Inpatient: Screened on floor PATIENT GENDER DATA: Female. status: : No status: NO. PATIENT RELEVANT IMPLANT DATA REVIEWED: Not Applicable RADIOLOGY DEPARTMENT: Ultrasound PERIPHERAL IV DATA: Not applicable SIGNED BY: JOSE Sarmiento April 27, 2020 10:11 AM Normal [facility] CBC and Differentialon 04-27 Abs Baso 0.04 k/uL Normal <0.11 [facility] Comment on above: Performed By: #### C BCDIF, CK, CMP #### [facility] [address] [address] Abs Dixon 0.57 k/uL Normal <0.87 [facility] Comment on above: Performed By: #### C BCDIF, CK, CMP #### [facility] [address] [address] Abs Neut 7.09 k/uL Normal 1.45-7.50 [facility] Comment on above: Performed By: #### C BCDIF, CK, CMP #### [facility] [address] [address] Absolute nRBC <0.01 Normal <0.01 [facility] Comment on above: Performed By: #### C BCDIF, CK, CMP #### [facility] [address] [address] Basophils/100 WBC (Bld) 0.4 % Normal [facility] Comment on above: Performed By: #### C BCDIF, CK, CMP #### [facility] [address] DTYPE Auto Diff Normal [facility] Comment on above: Performed By: #### C BCDIF, CK, CMP #### [facility] [address] [address] Eosinophils (Bld) [#/Vol] 0.24 10*3/uL Normal <0.46 [facility] Comment on above: Performed By: #### C BCDIF, CK, CMP #### [facility] [address] Eosinophils/100 WBC (Bld) 2.4 % Normal [facility] Comment on above: Performed By: #### C BCDIF, CK, CMP #### [facility] [address] [address] Erythrocyte distribution width (RBC) [Ratio] 13.3 % Normal 11.5-15.0 [facility] Comment on above: Performed By: #### C BCDIF, CK, CMP #### [facility] [address] [address] Hematocrit (Bld) [Volume fraction] 42.0 % Normal 36.0-46.0 [facility] Comment on above: Performed By: #### C BCDIF, CK, CMP #### [facility] [address] [place] [address] Hemoglobin (Bld) [Mass/Vol] 14.0 g/dL Normal 11.5-15.5 [facility] Comment on above: Performed By: #### C BCDIF, CK, CMP #### [facility] [address] [address] Lymphocytes (Bld) [#/Vol] 2.01 10*3/uL Normal 1.00-4.00 [facility] Comment on above: Performed By: #### C BCDIF, CK, CMP #### [facility] [address] [place], [place] [phone] Lymphocytes/100 WBC (Bld) 20.2 % Normal [facility] Comment on above: Performed By: #### C BCDIF, CK, CMP #### [facility] [address] [place] [address] MCH (RBC) [Entitic mass] 29.2 pG Normal 26.0-34.0 [facility] Comment on above: Performed By: #### C BCDIF, CK, CMP #### [facility] [address] [address] MCHC (RBC) [Mass/Vol] 33.3 g/dL Normal 30.5-36.0 [facility] Comment on above: Performed By: #### C BCDIF, CK, CMP #### [facility] [address] [address] MCV (RBC) [Entitic vol] 87.5 fL Normal 80.0-100.0 [facility] Comment on above: Performed By: #### C BCDIF, CK, CMP #### [facility] [address] [address] Monocytes/100 WBC (Bld) 5.7 % Normal [facility] Comment on above: Performed By: #### C BCDIF, CK, CMP #### [facility] [address] [address] Neutrophils/100 WBC (Bld) 71.3 % Normal [facility] Comment on above: Performed By: #### C BCDIF, CK, CMP #### [facility] [address] [address] NRBCs 0.0 /100 WBC Normal 0 [facility] Comment on above: Performed By: #### C BCDIF, CK, CMP #### [facility] [address] [address] Platelet mean volume (Bld) [Entitic vol] 10.3 fL Normal 9.0-12.7 [facility] Comment on above: Performed By: #### C BCDIF, CK, CMP #### [facility] [address] Platelets (Bld) [#/Vol] 284 10*3/uL Normal 150-400 [facility] Comment on above: Performed By: #### C BCDIF, CK, CMP #### [facility] [address] [phone] RBC (Bld) [#/Vol] 4.80 10*6/uL Normal 3.90-5.20 [facility] Comment on above: Performed By: #### C BCDIF, CK, CMP #### [facility] [address] [address] WBC (Bld) [#/Vol] 9.97 10*3/uL Normal 3.70-11.00 [facility] Comment on above: Performed By: #### C BCDIF, CK, CMP #### [facility] [address] [address] CKon 04-27-2020 CK [Catalytic activity/Vol] 55 U/L Normal 42-196 [facility] Comment on above: Performed By: #### C BCDIF, CK, CMP #### [facility] [address] [address] Comp Metabolic Panelon 04-27 Albumin [Mass/Vol] 3.8 g/dL Low 3.9-4.9 [facility] Comment on above: Performed By: #### C BCDIF, CK, CMP #### [facility] [address] [address] ALP [Catalytic activity/Vol] 77 U/L Normal 34-123 [facility] Comment on above: Performed By: #### C BCDIF, CK, CMP #### [facility] [address] [address] ALT [Catalytic activity/Vol] 23 U/L Normal 7-38 [facility] Comment on above: Performed By: #### C BCDIF, CK, CMP #### [facility] [address] [address] Anion gap [Moles/Vol] 11 mmol/L Normal 9-18 [facility] Comment on above: Performed By: #### C BCDIF, CK, CMP #### [facility] [address] [address] AST [Catalytic activity/Vol] 13 U/L Normal 13-35 [facility] Comment on above: Performed By: #### C BCDIF, CK, CMP #### [facility] [address] [address] Bilirubin [Mass/Vol] 0.4 mg/dL Normal 0.2-1.3 [facility] Comment on above: Performed By: #### C BCDIF, CK, CMP #### [facility] [address] [phone] Calcium [Mass/Vol] 8.8 mg/dL Normal 8.5-10.2 [facility] Comment on above: Performed By: #### C ARLIN PETERS, CMP #### [facility] [address] [phone] Chloride [Moles/Vol] 101 mmol/L Normal 97-105 [facility] Comment on above: Performed By: #### C BCAYLIN CK, CMP #### [facility] [address] [phone] CO2 [Moles/Vol] 27 mmol/L Normal 22-30 [facility] Comment on above: Performed By: #### C ARLIN PETERS, CMP #### [facility] [address] [place] [phone] Creatinine [Mass/Vol] 0.58 mg/dL Normal 0.58-0.96 [facility] Comment on above: Performed By: #### C ARLIN PETERS, CMP #### [facility] [address] [place] [phone] eGFR- Amer. >60 Normal [facility] Comment on above: Performed By: #### C ARLIN PETERS, CMP #### [facility] [address] [place], [place] [phone] GFR/1.73 sq M predicted among non-blacks MDRD (S/P/Bld) [Vol rate/Area] mL/min/{1.73_m2} Normal [facility] Comment on above: Result Comment: eGFR (Estimated GFR) Units of measure: mL/min/1.73 meters squared eGFR is derived from the reexpressed MDRD Study equation using the following parameters: serum creatinine, age, gender and race. The creatinine assay has been calibrated to be traceable to IDMS. An eGFR <60 mL/min/1.73m2 for >3 months is consistent with chronic kidney disease. Refer to KDOQI guidelines for clinical interpretation. In patients with unstable renal function, e.g. those with acute kidney injury, the eGFR may not accurately reflect actual GFR. Performed By: #### C BCANGELIF CK, CMP #### [facility] [address] [place] [phone] Glucose [Mass/Vol] 97 mg/dL Normal 74-99 [facility] Comment on above: Result Comment: The [place] Diabetes Association (ADA) provides guidance for cutoff values for fasting glucose and random glucose. The ADA defines fasting as no caloric intake for at least 8 hours. Fasting plasma glucose results between 100 to 125 mg/dL indicate increased risk for diabetes (prediabetes). Fasting plasma glucose results greater than or equal to 126 mg/dL meet the criteria for diagnosis of diabetes. In the absence of unequivocal hyperglycemia, results should be confirmed by repeat testing. In a patient with classic symptoms of hyperglycemia or hyperglycemic crisis, random plasma glucose results greater than or equal to 200 mg/dL meet the criteria for diagnosis of diabetes. Reference: Standards of Medical Care in Diabetes 2016, [place] [employer]. Diabetes Care. 2016.39(Suppl 1). Performed By: #### C BCDIF, CK, CMP #### [facility] [address] [place] [address] Potassium [Moles/Vol] 3.6 mmol/L Low 3.7-5.1 [facility] Comment on above: Performed By: #### C BCDIF, CK, CMP #### [facility] [address] [place] [address] Protein [Mass/Vol] 7.2 g/dL Normal 6.3-8.0 [facility] Comment on above: Performed By: #### C BCDIF, CK, CMP #### [facility] [address] [place] [address] Sodium [Moles/Vol] 139 mmol/L Normal 136-144 [facility] Comment on above: Performed By: #### C BCDIF, CK, CMP #### [facility] [address] [place], [place] [phone] Urea nitrogen [Mass/Vol] 9 mg/dL Normal 7-21 [facility] Comment on above: Performed By: #### C BCDIF, CK, CMP #### [facility] [address] [place], [place] [phone] D dimeron 04-27-2020 D dimer 410 ng/mL FEU Normal <500 [facility] Comment on above: Result Comment: 500 ng/mL FEU is the D Dimer cutoff to exclude DVT (deep vein thrombosis) and PE (pulmonary embolism) in patients with a low pre test probability. Supplemental Comment: In patients over 50 years with a low pre test probability for DVT and/or PE, an age adjusted D dimer cutoff can be calculated as [age x 10] ng/mL FEU. For example, a patient of 88 years would have an age adjusted D dimer cutoff of 880 ng/mL FEU. For patients with a suspected DVT, a D dimer level below 500 ng/mL FEU has a negative predictive value of >98.9%, a sensitivity of >96.9% and a specificity of >35.7%. For patients with a suspected PE, a D dimer level below 500 ng/mL FEU has a negative predictive value of >98.5%, and a sensitivity of >96.5% and a specificity of >38.8%. Reference: Garett M, et al. KATHRYN 2014 311:1117 and Gustabo Sands N et al. Blessing Int Med 2016 165:253. Performed By: #### L GUNNAR CHAMBERS #### [facility] [address] [facility] [phone] ED NOTEon 04-27-2020 ED NOTE HNO ID: [id number] Author: Keith Lange) RYNE Christianson Service: Nursing Author Type: Registered Nurse Type: ED Notes Filed: 04/30/2020 5:17 PM Note Text: Emergency Services: ED Call Back Questionnaire SERVICE DATE: 04/27/2020 Are you feeling better? Yes, Comments: Spoke with the pt; had questions regarding [facility] process which was transferred to registration to discuss. Provided a phone # [phone] for follow up with a email marketing assistant Any questions about discharge instructions and follow-up care? No Were you able to make a follow up appointment? No, referred to appointment hotline see noted above Do you have any further questions? No Is there anything that we could have done differently to improve your ED visit? No SIGNATURE: Keith Christianson RN PATIENT NAME: Soco Rocha DATE: April 30, 2020 TIME: 5:16 PM Normal [facility] ED NOTE HNO ID: [id number] Author: Lila GoldbergRn) RYNE Holloway Service: ? Author Type: Registered Nurse Type: ED Notes Filed: 04/27/2020 11:10 AM Note Text: Assumed care of patient, report from keith schafer rn [facility] ED NOTE HNO ID: [id number] Author: Keith (Rn) RYNE Christianson Service: Nursing Author Type: Registered Nurse Type: ED Notes Filed: 04/27/2020 10:04 AM Note Text: Ultrasound was bedside and completed. Awaiting results [facility] ED NOTE HNO ID: [id number] Author: Keith (Rn) RYNE Christianson Service: Nursing Author Type: Registered Nurse Type: ED Notes Filed: 04/27/2020 9:25 AM Note Text: Medic at bedside to obtain PIV and labwork. [facility] ED NOTE HNO ID: [id number] Author: Keith (Rn) RYNE Christianson Service: Nursing Author Type: Registered Nurse Type: ED Notes Filed: 04/27/2020 9:15 AM Note Text: Dr Kenney rounds on pt at bedside to assess. [facility] ED PROV NOTEon 04-27-2020 ED PROV NOTE HNO ID: [id number] Author: Florina Kenney MD Service: ? Author Type: Physician Type: ED Provider Notes Filed: 04/27/2020 1:22 PM Note Text: ED Provider Note Patient Name: Soco Rocha SERVICE DATE: 04/27/20 History Patient presents with: Chest Pain Diarrhea Nausea Patient with h/o hysterectomy and who presents with a dull ache to her right mid chest, right upper quadrant, nausea, and bloating since Saturday, two days ago. She reports having a dull ache in her right chest constantly but is made worse after eating. It is associated with nausea, diarrhea, bloating, and occasionally right upper quadrant pain. She was diagnosed with a bad gallbladder when years ago but never had surgery. She denies fever/chills, cough, sob, URI symptoms, or PE/DVT risk factors. No past medical history on file. PAST SURGICAL HISTORY Procedure Laterality Date - SECTION HX - HYSTERECTOMY HX No family history on file. Social History Tobacco Use - Smoking status: Current Every Day Smoker Packs/day: 0.50 Types: Cigarettes - Smokeless tobacco: Never Used - Tobacco comment: since age 34yrs Substance and Sexual Activity - Alcohol use: Yes Comment: monthly - Drug use: No - Sexual activity: Not on file ALLERGIES Allergen Reactions - Penicillin Hives Review of Systems Constitutional: Negative for chills and fever. HENT: Negative for congestion, rhinorrhea, sinus pressure, sinus pain, sneezing and sore throat. Eyes: Negative for visual disturbance. Respiratory: Negative for cough and shortness of breath. Cardiovascular: Positive for chest pain. Negative for palpitations and leg swelling. Gastrointestinal: Positive for abdominal distention, abdominal pain, diarrhea and nausea. Negative for vomiting. Genitourinary: Negative for difficulty urinating, dysuria, flank pain and hematuria. Musculoskeletal: Negative for back pain, myalgias and neck stiffness. Skin: Negative for pallor. Neurological: Negative for dizziness, weakness, light-headedness and headaches. Psychiatric/Behavioral: Negative for confusion. All other systems reviewed and are negative. Physical Exam BP 183/94 Pulse 69 Temp (Src) 97.9 (Oral) Resp 12 Ht 5' 5 (1.65m) Wt 240 lb (108.9kg) SpO2 98% BMI 39.94 kg/(m2). O2 Therapy: Room Air Physical Exam Vitals signs and nursing note reviewed. Constitutional: General: She is not in acute distress. Appearance: She is well-developed. HENT: Head: Normocephalic and atraumatic. Right Ear: External ear normal. Left Ear: External ear normal. Nose: Nose normal. Eyes: Conjunctiva/sclera: Conjunctivae normal. Pupils: Pupils are equal, round, and reactive to light. Neck: Musculoskeletal: Normal range of motion and neck supple. Cardiovascular: Rate and Rhythm: Normal rate and regular rhythm. Heart sounds: Normal heart sounds. No murmur. Pulmonary: Effort: Pulmonary effort is normal. No respiratory distress. Breath sounds: Normal breath sounds. No stridor. No wheezing or rales. Chest: Chest wall: No tenderness. Abdominal: General: Bowel sounds are normal. There is no distension. Palpations: Abdomen is soft. Tenderness: There is abdominal tenderness in the right upper quadrant. There is no rebound. Negative signs include Mirza's sign. Musculoskeletal: Normal range of motion. General: No tenderness. Lymphadenopathy: Cervical: No cervical adenopathy. Skin: General: Skin is warm and dry. Findings: No erythema or rash. Neurological: Mental Status: She is alert and oriented to person, place, and time. Deep Tendon Reflexes: Reflexes are normal and symmetric. Psychiatric: Behavior: Behavior normal. Thought Content: Thought content normal. Judgment: Judgment normal. Diagnostic Testing ED Labs Ordered and Reviewed - No data to display Results for orders placed or performed during the hospital encounter of 04/27/20 LIPASE BLD Result Value Ref Range Lipase 45 16 - 61 U/L D-DIMER Result Value Ref Range d Dimer 410 <500 ng/mL FEU COMP METABOLIC PANEL Result Value Ref Range Protein, Total 7.2 6.3 - 8.0 g/dL Albumin 3.8 (L) 3.9 - 4.9 g/dL Calcium 8.8 8.5 - 10.2 mg/dL Bilirubin, Total 0.4 0.2 - 1.3 mg/dL Alkaline Phosphatase 77 34 - 123 U/L AST 13 13 - 35 U/L Glucose 97 74 - 99 mg/dL BUN 9 7 - 21 mg/dL Creatinine 0.58 0.58 - 0.96 mg/dL Sodium 139 136 - 144 mmol/L Potassium 3.6 (L) 3.7 - 5.1 mmol/L Chloride 101 97 - 105 mmol/L CO2 27 22 - 30 mmol/L Anion Gap 11 9 - 18 mmol/L ALT 23 7 - 38 U/L eGFR- >60 eGFR-All Other Races >60 . CBC + DIFF Result Value Ref Range WBC 9.97 3.70 - 11.00 k/uL RBC 4.80 3.90 - 5.20 m/uL Hemoglobin 14.0 11.5 - 15.5 g/dL Hematocrit 42.0 36.0 - 46.0 % MCV 87.5 80.0 - 100.0 fL MCH 29.2 26.0 - 34.0 pG MCHC 33.3 30.5 - 36.0 g/dL RDW-CV 13.3 11.5 - 15.0 % Platelet Count 284 150 - 400 k/uL MPV 10.3 9.0 - 12.7 fL Neut% 71.3 % Abs Neut (ANC) 7.09 1.45 - 7.50 k/uL Lymph% 20.2 % Abs Lymph 2.01 1.00 - 4.00 k/uL Dixon% 5.7 % Abs Dixon 0.57 <0.87 k/uL Eosin% 2.4 % Abs Eosin 0.24 <0.46 k/uL Baso% 0.4 % Abs Baso 0.04 <0.11 k/uL Nucleated Reds 0.0 0 /100 WBC Absolute nRBC <0.01 <0.01 k/uL Diff Type Auto Diff HIGH SENSITIVITY TROPONIN T Result Value Ref Range JACKIE High Sensitivity <6 <12 ng/L HIGH SENSITIVITY TROPONIN T Result Value Ref Range JACKIE High Sensitivity <6 <12 ng/L CK CREATINE KINASE Result Value Ref Range CK 55 42 - 196 U/L EKG Result Value Ref Range Ventricular Rate 65 BPM Atrial Rate 65 BPM P-R Interval 170 ms QRS Duration 88 ms QT Interval 446 ms QTC Calculation (Bazett) 463 ms Calculated P [place] 30 degrees Calculated R [place] 36 degrees Calculated T [place] 21 degrees US ABD RT UPPER QUADRANT Final Result IMPRESSION: 1. Hepatic steatosis. 2. Unremarkable sonographic appearance of the gallbladder. Intelligence Specialist: LILY Transcribe Date/Time: Apr 27 2020 10:15A Dictated by : PRAKASH AARON MD This examination was interpreted and the report reviewed and electronically signed by: PRAKASH AARON MD on Apr 27 2020 10:18AM EST Procedures ED Course / Clinical Impression Clinical Impressions as of Apr 27 1307 Chest pain, unspecified type Right upper quadrant pain MDM / Disposition / Plan Nurses notes and old chart reviewed Patient here for right sided chest pain, right upper quadrant pain, and bloating worse after eating Ddx; denton, pancreatitis, hepatitis, PE, CAD, GERD, Work up in ED reveals EKG as below with two normal sets sensitive troponin, CMP normal except K 3.6, albumin 3.8, WBC 9.97, HGB 14, RUQ ultrasound shows hepatic steatosis, o/w negative. ddimer 410, While in ED she initially declined medicine for discomfort. Prior to discharge she was given IV toradol and zofran. . Will d/c home with outpatient follow up for possible HIDA. Patient was enrolled in [facility]. Will try to get appointment scheduled for her. . ddimer negative and no PE risk factors so PE less likely. No evidence of cardiac etiology. Patient comfortable with this plan. Will dc with Rx bentyl and zofran. Discussed importance of diet modification. Additional Tests or Interventions: ECG EKG INTERPRETATION: Ordered and Reviewed Rhythm: Normal sinus rhythm Rate: 65 [place]: Normal axis Intervals: Normal MS interval QRS Complex: Normal ST Segment: Normal ST-T segments QT Interval: Normal Compared with Prior: Interpretation performed by Florina Kenney MD The patient was DISCHARGED: Counseled patient regarding lab results AND radiology results AND suspected diagnosis AND need for follow-up. Discharged home with verbal and written instructions. They were instructed to return as needed for persistent or worsening symptoms or any new concerns. Condition at time of disposition: stable SIGNATURE: MD Florina Mcgrath MD 04/27/20 1313 Florina Kenney MD 04/27/20 1322 Normal [facility] High Sens Troponin Ton 04-27 High Sensitivity JACKIE <6 Normal <12 [facility] Comment on above: Performed By: #### H STNT ####[facility] [id number] [phone] High Sensitivity JACKIE <6 Normal <12 [facility] Comment on above: Performed By: #### H STNT ####[facility] [id number] [place] [phone] Lipaseon 04-27-2020 Lipase [Catalytic activity/Vol] 45 U/L Normal 16-61 [facility] Comment on above: Performed By: #### L IPA, DDMER #### [facility] [address] [facility] [phone] US ABD RIGHT UPPER QUADRANTo n 04-27-2020 US ABD RIGHT UPPER QUADRANT * * *Final Report* * * DATE OF EXAM: Apr 27 2020 10:10AM RODRIGO 1032 - US ABD RIGHT UPPER QUADRANT / PROCEDURE REASON: Cholelithiasis * * * * Physician Interpretation * * * * EXAMINATION: RIGHT UPPER QUADRANT ULTRASOUND CLINICAL HISTORY: Right upper quadrant pain TECHNIQUE: Sonography of the right upper quadrant was performed. Images were obtained and stored in a permanent archive and interpreted remotely. MQ: URUQ_2 COMPARISON: Correlation made to CT abdomen dated 07/22/2017 RESULT: Pancreas: Normal sonographic appearance. Portions obscured: tail Liver: Echotexture: Normal, homogeneous. Echogenicity: Increased most compatible with hepatic steatosis Surface contour: Smooth Lesions: None. Biliary: No intrahepatic biliary duct dilation. CBD: 0.5 cm at the hilum. Gallbladder: Present without evidence of gallstones, wall thickening or pericholecystic free fluid. Right Kidney: Measures 13 cm in craniocaudad dimension. Normal cortical echogenicity. Duplex configuration with a band of parenchyma the upper and lower pole moieties. No hydronephrosis. Ascites: None. IMPRESSION: 1. Hepatic steatosis. 2. Unremarkable sonographic appearance of the gallbladder. Intelligence Specialist: LILY Transcribe Date/Time: Apr 27 2020 10:15A Dictated by : PRAKASH AARON MD This examination was interpreted and the report reviewed and electronically signed by: PRAKASH AARON MD on Apr 27 2020 10:18AM EST [id number] [facility] CT BRAIN WO IVCONon 08-08-[address] BRAIN WO IVCON * * *Final Report* * *DATE OF EXAM: Aug 08 2018 12:43AM KD 0504 - CT BRAIN WO IVCON / REASON: Headache, acute, normal neuro exam * * * * Physician Interpretation * * * * EXAMINATION: CT BRAIN WO IVCONCLINICAL HISTORY: Headache, neck pain for 5 daysTECHNIQUE: Serial axial images without IV contrast were obtained from the vertex to the foramen magnum.MQ: [id number] Dose-Length Product (DLP): 778 mGy*cmCT Dose Reduction Employed: No dose reduction techniques were requiredCOMPARISON: None.RESULT:Post-operati ve change: None.Acute change: No evidence of an acute infarct or other acute parenchymal process.Hemorrhage: No evidence of acute intracranial hemorrhage.Mass Lesion / Mass Effect: There is no evidence of an intracranial mass or extraaxial fluid collection. No significant mass effect.Chronic change: None apparent.Parenchyma: There is no significant volume loss. The brain parenchyma is otherwise within normal limits for age.Ventricles: The ventricles are within normal limits of size and configuration for age.Paranasal sinuses and skull base: The visualized paranasal sinuses are grossly clear. The skull base and imaged soft tissues are unremarkable.======IMPRE SSION:NO ACUTE INTRACRANIAL PROCESS.Intelligence Specialist : LILY Transcribe Date/Time: Aug 08 2018 12:50ADictated by : KELLEN RICKETTS MDThis examination was interpreted and the report reviewed and electronically signed by: KELLEN RICKETTS MD on Aug 08 2018 12:51AM [id number] [facility] ED NOTEon 08-08-2018 ED NOTE HNO ID: [id number] Author: Westley Lange) RYNE Lyon Service: (none) Author Type: Registered Nurse Type: ED Notes Filed: 08/08/2018 12:12 AM Note Text: Patient alert and oriented, safety maintained, no needs at this time. [facility] ED NOTE HNO ID: [id number]: Westley Lange) Liane Lyonice: (none)Author Type: Registered NurseType: ED NotesFiled: 08/08/2018 1:35 AMNote Text: Reviewed all discharge instructions with pt including medications and theneed for follow up. Pt verbalized understanding. Gait steady, no distressnoted. [facility] ED NOTE HNO ID: [id number] Author: Westley Lange) RYNE Lyon Service: (none) Author Type: Registered Nurse Type: ED Notes Filed: 08/07/2018 11:57 PM Note Text: Patient medicated per mar. Call light in reach, safety maintained. No needs at this time. [facility] ED NOTE HNO ID: [id number]: Westley Lange) DIONISIO Lyonervice: (none)Author Type: Registered NurseType: ED NotesFiled: 08/07/2018 11:26 PMNote Text:Patient arrived to ER with CC of headache x1 week patient states it'smostly on the left side and neck pain and also diarrhea with last episodethis morning. Patient states I was at [employer] and I took my bloodpressure and it said 196/109. Patient denies chest pain, denies SOB.Patient states photosensitivity, but denies any other vision changes frombaseline. [facility] ED PROV NOTEon 08-08-2018 Protein mass conc HNO ID: [id number]: SIDNEY Mazariegoservice: Emergency MedicineAuthor Type: PhysicianType: ED Provider NotesFiled: 08/08/2018 1:23 AMNote Text:ED Provider NotePatient Name: Soco RochaMRN: [id number] DATE: 08/07/18HistoryPatient presents with:WhznlqgvYynyxcnz12- year-old female presents to the emergency department complaining of aheadache. Also concern of high blood pressure. States that she has had aheadache for the past week. States that the headache is occipital andsometimes left frontal. She has photophobia. She has been nauseous attimes but no vomiting. Tonight she checked her blood pressure at thestore and it was fairly high so decided to come and get checked. Patientstates she has an appointment to see a primary care doctor next week buthas not seen this doctor yet. No focal weakness of arms or legs,difficulty with speech or problems with ambulation. States she has beenunder increased stress. No additional complaints.No past medical history on file.PAST SURGICAL HISTORYProcedure Laterality Date- SECTION HX- HYSTERECTOMY HXNo family history on file.Social HistorySocial History Main Topics- Smoking status: Current Every Day Smoker Packs/day: 0.50 Types: Cigarettes- Smokeless tobacco: Never Used Comment: since age 34yrs- Alcohol use Yes Comment: monthly- Drug use: No- Sexual activity: Not on fileALLERGIESAllergen Reactions- Penicillin HivesReview of SystemsConstitutional: Negative.HENT: Negative for congestion and sore throat.Eyes: Positive for photophobia.Respiratory: Negative for cough.Cardiovascular: Negative for chest pain.Gastrointestinal: Negative for abdominal pain.Genitourinary: Negative for dysuria and frequency.Musculoskeleta l: Positive for neck stiffness. Negative for arthralgias.Skin: Negative for rash.Neurological: Positive for headaches. Negative for dizziness andlight-headedness.Psyc hiatric/Behavioral: The patient is not nervous/anxious.Physical ExamBP 138/69 Pulse 69 Resp 16 Wt 180 lb (81.6kg) SpO2 98%Physical ExamConstitutional: She is oriented to person, place, and time. She appearswell-developed and well-nourished.HENT:Head : Normocephalic and atraumatic.Mouth/Throat: Oropharynx is clear and moist.Eyes: Pupils are equal, round, and reactive to light. EOM are normal.Cardiovascular: Normal rate, regular rhythm, normal heart sounds andintact distal pulses.Pulmonary/Chest: Effort normal and breath sounds normal.Abdominal: Soft. Bowel sounds are normal.Musculoskeletal: Normal range of motion. She exhibits no edema.There is bilateral cervical muscle tenderness to palpation withoutmeningismus. There is significant tenderness at both occipital foramen's.Neurological: She is oriented to person, place, and time.Skin: Skin is warm and dry.Psychiatric: She has a normal mood and affect.Diagnostic TestingED Labs Ordered and Reviewed - No data to displayProceduresED Course / Clinical ImpressionClinical Impressions as of Aug 08 0123Acute intractable tension-type headacheMDM / Disposition / [id number] female presents with headache. Differential includes tensionheadache, migraine headache, cluster headache, intracranial hemorrhage,meningitis, encephalitis. Patient with significant occipital andbilateral neck tenderness to palpation suggestive of tension headache. Nohistory of headaches. Head CT obtained to rule out intracranial process.This is negative. Clinically the patient does not have meningitis. Noneed to pursue. Patient will be treated symptomatically. Improved aftermuscle relaxants and pain medication.DispositionTh e patient was discharged. Counseled patient regarding . As well as theneed for follow-up. Discharged home with verbal and written instructions. They were instructed to return as needed for persistent or worseningsymptoms or any new concerns.Condition at disposition is stable and improved.SIGNATURE: Laura Mazariegos MD08/08/18 [address] [facility] [address] ABDOMEN AND PELVIS WITH C [facility] 07-23-2017 CT ABDOMEN AND PELVIS WITH CONTRAST Performed at [facility] APPROVED BY: ELIER CUNNINGHAM MD EXAMINATION: CT ABDOMEN AND PELVIS WITH IV CONTRAST CLINICAL HISTORY: Mid abdominal pain TECHNIQUE: CT of the abdomen and pelvis was performed using standard technique, scanning from just above the dome of the diaphragm to the symphysis pubis. M: CTAP_3 Contrast:IV: 148 ml of Omnipaque 300 CT Radiation dose: Integrated Dose-length product (DLP) for this visit = 1706.79 mGy*cm.CT Dose Reduction Employed: COMPARISON: None. RESULT: Liver: There is a subcentimeter low-attenuation lesion in the posterior right hepatic lobe that is too small to characterize but likely benign. Biliary: No bile duct dilation. The gallbladder is unremarkable. Spleen: No mass. No splenomegaly. Pancreas: No mass or duct dilation. Adrenals: No mass. Kidneys: No hydronephrosis bilaterally. There is a subcentimeter low-attenuation lesion in the inferior pole of the right kidney that is too small to characterize but likely benign. GI tract: No dilation or wall thickening. The appendix is unremarkable. Lymph nodes: No abdominal or pelvic lymphadenopathy. Mesentery/Peritoneum: No ascites or mass. Retroperitoneum: No mass. Vasculature: The celiac axis and SMA are patent. The portal vein and branches, splenic vein, SMV, and hepatic veins are patent. Pelvis: No mass, ascites or fluid collection. Bones/Soft Tissues: No acute fracture or osseous lesions are identified. Lower thorax: There is a 4 mm (2:13) noncalcified subpleural nodule at the left lung base posteriorly. IMPRESSION: No acute findings in the abdomen or pelvis 4 mm noncalcified nodule at the left lung base. In a low-risk patient, no further follow-up is recommended. NOTE: No imaging follow-up is recommended for any of the following incidentally detected lesions: liver lesions less than or equal to 0.5 cm, cystic kidney lesions less than 1.0 cm, or adrenal lesions less than or equal to 1.0 cm, in this adult patient (18 years or older). ACR Whitepaper: Managing Incidental Findings on Abdominal CT. JACR 2010; 7:754 Normal [facility] Comprehensive Panelon 2016 Albumin 3.4 g/dL Normal 3.4-5.0 [facility] Comment on above: Performed By: #### L P14 ####[place] [address] Alkaline phosphatase (ALP) 77 U/L Normal 46-116 [facility] Comment on above: Performed By: #### L P14 ####[place] [address] ALT-SGPT Blood 28 U/L Normal 12-78 [facility] Comment on above: Performed By: #### L P14 ####[place] [address] Anion gap 11 mmol/L Normal 8-20 [facility] Comment on above: Performed By: #### L P14 ####[place] [address] AST-SGOT Blood 12 U/L Low 15-37 [facility] Comment on above: Performed By: #### L P14 ####[place] [address] Bilirubin Ql (U) 0.1 mg/dL Low 0.2-1.0 [facility] Comment on above: Performed By: #### L P14 ####[facility] [place], [place] [address] BUN (urea nitrogen) 11 mg/dL Normal 7-25 [facility] Comment on above: Performed By: #### L P14 ####[facility] [place] [address] BUN/Creatinine Ratio 18 mg/mg Normal 10-20 [facility] Comment on above: Performed By: #### L P14 ####[place] [address] Calcium 8.7 mg/dL Normal 8.5-10.1 [facility] Comment on above: Performed By: #### L P14 ####[place] [address] Chloride 103 mmol/L Normal 98-107 [facility] Comment on above: Performed By: #### L P14 ####[place] [address] CO2 27 mmol/L Normal 21-32 [facility] Comment on above: Performed By: #### L P14 ####[place] [address] Creatinine 0.60 mg/dL Normal 0.51-0.95 [facility] Comment on above: Performed By: #### L P14 ####[place] [address] Glucose mass conc 125 mg/dL High 70-99 [facility] Comment on above: Performed By: #### L P14 ####[place] [address] Potassium molar conc 3.4 mmol/L Low 3.5-5.1 [facility] Comment on above: Performed By: #### L P14 ####[place] [address] Protein 7.5 g/dL Normal 6.4-8.2 [facility] Comment on above: Performed By: #### L P14 ####[place] [address] Sodium 137 mmol/L Normal 136-145 [facility] Comment on above: Performed By: #### L P14 ####[place] [address] Hemogram/Diffon 07-23-2017 Abs. Baso 0.05 thou/cmm Normal 0.00-0.08 [facility] Comment on above: Performed By: #### L CBCD ####[place] [address] Abs. Dixon 0.74 thou/cmm Normal 0.20-1.00 [facility] Comment on above: Performed By: #### L CBCD ####[place] [address] Abs. Neut 5.67 thou/cmm Normal 3.00-5.67 [facility] Comment on above: Performed By: #### L CBCD ####[place] [address] Basophils/100 WBC Auto (Bld) 0.5 % Normal [facility] Comment on above: Performed By: #### L CBCD ####[place] [address] Eosinophils 0.36 thou/cmm Normal 0.00-0.41 [facility] Comment on above: Performed By: #### L CBCD ####[place] [address] Eosinophils/100 leukocytes 3.7 % Normal [facility] Comment on above: Performed By: #### L CBCD ####[place] [address] Erythrocyte distribution width Auto Ratio (RBC) 12.9 % Normal 11.5-15.9 [facility] Comment on above: Performed By: #### L CBCD ####[address] [address] Erythrocytes (RBC) 4.59 mil/cmm Normal 4.20-5.40 [facility] Comment on above: Performed By: #### L CBCD ####[address] [address] Hematocrit (HCT) 39.9 % Normal 37.0-47.0 [facility] Comment on above: Performed By: #### L CBCD ####[address] [address] Hemoglobin mass conc (Bld) 13.8 g/dL Normal 12.0-16.0 [facility] Comment on above: Performed By: #### L CBCD ####[address] [address] Lymphocytes 2.78 thou/cmm Normal 1.50-3.65 [facility] Comment on above: Performed By: #### L CBCD ####[address] [address] Lymphocytes/100 leukocytes 29.0 % Normal [facility] Comment on above: Performed By: #### L CBCD ####[address] [address] MCH 30.1 pg Normal 27.0-31.0 [facility] Comment on above: Performed By: #### L CBCD ####[address] [address] MCHC mass conc (RBC) 34.6 % Normal 32.0-36.0 [facility] Comment on above: Performed By: #### L CBCD ####[address] [address] MCV 86.9 fL Normal 81.0-99.0 [facility] Comment on above: Performed By: #### L CBCD ####[address] [address] Monocytes/100 leukocytes 7.7 % Normal [facility] Comment on above: Performed By: #### L CBCD ####[address] [address] Platelet mean volume (PMV) 9.9 fL Normal 7.1-10.5 [facility] Comment on above: Performed By: #### L CBCD ####[address] [address] Platelets 323 thou/cmm Normal 150-400 [facility] Comment on above: Performed By: #### L CBCD ####[address] [address] Seg Neutrophil 59.1 % Normal [facility] Comment on above: Performed By: #### L CBCD ####[address] [address] WBC (Leukocytes) 9.6 thou/cmm Normal 4.8-10.8 [facility] Comment on above: Performed By: #### L CBCD ####[place] [address] Lactic acidon 07-23-2017 Lactate 0.9 mmol/L Normal 0.4-2.0 [facility] Comment on above: Performed By: #### L LA ####[place] [address] Lactate 2.1 mmol/L Critically high 0.4-2.0 [facility] Comment on above: Performed By: #### L LA ####[address] [address] Lipase Bloodon 07-23-2017 Lipase Blood 212 U/L Normal 73-393 [facility] Comment on above: Performed By: #### L LIP ####[address] [address] MDRD eGFRon 07-23-2017 eGFR (non-black) mL/min/{1.73_m2} Normal >60mL/m in/1 .73m2 [facility] Comment on above: Result Comment: If t he patient is , multiply the result by 1.210. Performed By: #### L GFR ####[address] [address] Troponin Ion 07-23-2017 Troponin I.cardiac mass conc ng/mL Normal <=0.07 [facility] Comment on above: Performed By: #### L TRP ####[place] [address] Urinalysis Routineon 017 Bilirubin Urine Negative Normal Negative [facility] Comment on above: Performed By: #### L URIN ####[facility] [place], [place] [address] Ep Cells Urine 2-5 Normal 0-5 [facility] Comment on above: Performed By: #### L URIN ####[facility] [place], [place] [address] Hemoglobin,Urine TRACE-INTACT Abnormal Negative [facility] Comment on above: Performed By: #### L URIN ####[place] [address] Ketone Urine Negative Normal Negative [facility] Comment on above: Performed By: #### L URIN ####[place] [address] Nitrites Urine Negative Normal Negative [facility] Comment on above: Performed By: #### L URIN ####[place] [address] Protein Urine Negative Normal Negative [facility] Comment on above: Performed By: #### L URIN ####[place] [address] Specific [place], Ur 1.010 Normal 1.005-1.030 [facility] Comment on above: Performed By: #### L URIN ####[address] [address] Urine, appearance CLEAR Normal [facility] Comment on above: Performed By: #### L URIN ####[place] [address] Urine, bacteria in sediment FEW Abnormal None [facility] Comment on above: Performed By: #### L URIN ####[place] [address] Urine, color YELLOW Normal [facility] Comment on above: Performed By: #### L URIN ####[address] [address] Urine, erythrocytes in sediment by area 0-3 Normal 0-3 [facility] Comment on above: Performed By: #### L URIN ####[facility] [place] [address] Urine, glucose presence Negative Normal Negative [facility] Comment on above: Performed By: #### L URIN ####[facility] [place] [address] Urine, leukocytes in sedmiment NONE Normal 0-5 [facility] [address] [facility] Comment on above: Performed By: #### L URIN ####[facility] [place] [address] Urine, pH 7.0 [pH] Normal 5.0-8.0 [facility] Comment on above: Performed By: #### L URIN ####[place] [address] Urobilinogen,Ur 0.2 EU/dL Normal 0.0-1.0 [facility] [address] [facility] Comment on above: Performed By: #### L URIN ####[place] [address] WBC (Leukocytes) Negative Normal Negative [facility] Comment on above: Performed By: #### L URIN ####[place] [address] Vital Signs Date Time Vital Sign Value Performing Clinician Sara beth 04-27-2025 15:49-0400 Body height 165.[address] Romina Francois MD Work Phone: [facility] 04-27-2025 15:49-0400 Body mass index (BMI) [Ratio] 38.5 kg/m2 Dr. Romina Fracnois MD Work Phone: [facility] 04-27-2025 15:49-0400 Body temperature 97 [degF] Dr. Romina Francois MD Work Phone: [facility] 04-27-2025 15:49-0400 Body weight 104.[address] Romina Francois MD Work Phone: [facility] 04-27-2025 15:49-0400 Diastolic blood pressure 80 mm[Hg] Dr. Romina Francois MD Work Phone: [facility] 04-27-2025 15:49-0400 Heart rate 67 /min Dr. Romina Francois MD Work Phone: [facility] 04-27-2025 15:49-0400 Respiratory rate 16 /min Dr. Romina Francois MD Work Phone: [facility] 04-27-2025 15:49-0400 SaO2% (BldA) [Mass fraction] 98 % Dr. Romina Francois MD Work Phone: [facility] 04-27-2025 15:49-0400 Systolic blood pressure 134 mm[Hg] Dr. Romina Francois MD Work Phone: [facility] 08-27-2024 07:37-0500 Body height 165.[address] Romina Francois MD Work Phone: [facility] 08-27-2024 07:37-0500 Body mass index (BMI) [Ratio] 40.6 kg/m2 Dr. Romina Francois MD Work Phone: [facility] 08-27-2024 07:37-0500 Body temperature 97.4 [degF] Dr. Romina Francois MD Work Phone: [facility] 08-27-2024 07:37-0500 Body weight 110.[address] Romina Francois MD Work Phone: [facility] 08-27-2024 07:37-0500 Diastolic blood pressure 82 mm[Hg] Dr. Romina Francois MD Work Phone: [facility] 08-27-2024 07:37-0500 Heart rate 64 /min Dr. Romina Francois MD Work Phone: [facility] 08-27-2024 07:37-0500 Respiratory rate 16 /min Dr. Romina Francois MD Work Phone: [facility] 08-27-2024 07:37-0500 SaO2% (BldA) [Mass fraction] 98 % Dr. Romina Francois MD Work Phone: [facility] 08-27-2024 07:37-0500 Systolic blood pressure 132 mm[Hg] Dr. Romina Francois MD Work Phone: [facility] 05-21-2024 15:18-0400 Body height 165.1 cm Geovanna Daley MD, PhD Work Phone: [facility] 05-21-2024 15:18-0400 Body mass index (BMI) [Ratio] 40.28 kg/m2 Geovanna Daley MD, PhD Work Phone: [facility] 05-21-2024 15:18-0400 Body weight 109.8 kg Geovanna Daley MD, PhD Work Phone: [facility] 05-21-2024 15:18-0400 Diastolic blood pressure 80 mm[Hg] Geovanna Daley MD, PhD Work Phone: [facility] 05-21-2024 15:18-0400 Heart rate 62 /min Geovanna Daley MD, PhD Work Phone: [facility] 05-21-2024 15:18-0400 SaO2% (BldA) [Mass fraction] 97 % Gevoanna Daley MD, PhD Work Phone: [facility] 05-21-2024 15:18-0400 Systolic blood pressure 137 mm[Hg] Geovanna Daley MD, PhD Work Phone: [facility] 10-01-2023 09:20-0500 Body temperature 97.3 [degF] Dr. Romina Francois Work Phone: [facility] 10-01-2023 09:20-0500 Diastolic blood pressure 78 mm[Hg] Dr. Romina Francois Work Phone: [facility] 10-01-2023 09:20-0500 Heart rate 60 /min Dr. Romina Francois Work Phone: [facility] 10-01-2023 09:20-0500 Respiratory rate 16 /min Dr. Romina Francois Work Phone: [facility] 10-01-2023 09:20-0500 SaO2% (BldA) [Mass fraction] 100 % Dr. Romina Francois Work Phone: [facility] 10-01-2023 09:20-0500 Systolic blood pressure 147 mm[Hg] Dr. Romina Francois Work Phone: [facility] 10-01-2023 07:15-0500 Body mass index (BMI) [Ratio] 40.4 kg/m2 Dr. Romina Francois Work Phone: [facility] 10-01-2023 07:15-0500 Body weight 110.[address] Romina Francois Work Phone: [facility] 09-04-2023 11:59-0500 Body mass index (BMI) [Ratio] 39.9 kg/m2 Dr. Romina Francois Work Phone: [facility] 09-04-2023 11:59-0500 Body weight 108.[address] Romina Francois Work Phone: [facility] 06-06-2023 15:05-0400 Body height 165.1 cm No Primary Care Physician [facility] 06-06-2023 15:05-0400 Body mass index (BMI) [Ratio] 39.9 kg/m2 No Primary Care Physician [facility] 06-06-2023 15:05-0400 Body temperature 98.3 [degF] No Primary Care Physician [facility] 06-06-2023 15:05-0400 Body weight 108.86 kg No Primary Care Physician [facility] 06-06-2023 15:05-0400 Diastolic blood pressure 88 mm[Hg] No Primary Care Physician [facility] 06-06-2023 15:05-0400 Heart rate 74 /min No Primary Care Physician [facility] 06-06-2023 15:05-0400 Respiratory rate 16 /min No Primary Care Physician [facility] 06-06-2023 15:05-0400 SaO2% (BldA) [Mass fraction] 97 % No Primary Care Physician [facility] 06-06-2023 15:05-0400 Systolic blood pressure 138 mm[Hg] No Primary Care Physician [facility] 05-16-2023 15:23-0400 Body height 165.1 cm Geovanna Daley MD, PhD Work Phone: [facility] 05-16-2023 15:23-0400 Body weight 111.2 kg Geovanna Daley MD, PhD Work Phone: [facility] 05-16-2023 15:23-0400 Diastolic blood pressure 78 mm[Hg] Geovanna Daley MD, PhD Work Phone: [facility] 05-16-2023 15:23-0400 Heart rate 67 /min Geovanna Daley MD, PhD Work Phone: [facility] 05-16-2023 15:23-0400 SaO2% (BldA) [Mass fraction] 98 % Geovanna Daley MD, PhD Work Phone: [facility] 05-16-2023 15:23-0400 Systolic blood pressure 134 mm[Hg] Geovanna Daley MD, PhD Work Phone: [facility] 05-09-2023 15:24-0400 Body height 165.1 cm No Primary Care Physician [facility] 05-09-2023 15:24-0400 Body mass index (BMI) [Ratio] 40.7 kg/m2 No Primary Care Physician [facility] 05-09-2023 15:24-0400 Body temperature 97.9 [degF] No Primary Care Physician [facility] 05-09-2023 15:24-0400 Body weight 111.13 kg No Primary Care Physician [facility] 05-09-2023 15:24-0400 Diastolic blood pressure 84 mm[Hg] No Primary Care Physician [facility] 05-09-2023 15:24-0400 Heart rate 65 /min No Primary Care Physician [facility] 05-09-2023 15:24-0400 Respiratory rate 18 /min No Primary Care Physician [facility] 05-09-2023 15:24-0400 SaO2% (BldA) [Mass fraction] 97 % No Primary Care Physician [facility] 05-09-2023 15:24-0400 Systolic blood pressure 130 mm[Hg] No Primary Care Physician [facility] 04-11-2023 14:44-0400 Diastolic blood pressure 90 mm[Hg] No Primary Care Physician [facility] 04-11-2023 14:44-0400 Systolic blood pressure 140 mm[Hg] No Primary Care Physician [facility] 04-11-2023 13:56-0400 Body height 165.1 cm No Primary Care Physician [facility] 04-11-2023 13:56-0400 Body mass index (BMI) [Ratio] 40.7 kg/m2 No Primary Care Physician [facility] 04-11-2023 13:56-0400 Body temperature 98.1 [degF] No Primary Care Physician [facility] 04-11-2023 13:56-0400 Body weight 111.13 kg No Primary Care Physician [facility] 04-11-2023 13:56-0400 Heart rate 63 /min No Primary Care Physician [facility] 04-11-2023 13:56-0400 Respiratory rate 16 /min No Primary Care Physician [facility] 04-11-2023 13:56-0400 SaO2% (BldA) [Mass fraction] 97 % No Primary Care Physician [facility] 10-29-2022 15:50-0500 Body height 165.1 cm Geovanna Daley MD, PhD Work Phone: [facility] 10-29-2022 15:50-0500 Body weight 116.2 kg Geovanna Daley MD, PhD Work Phone: [facility] 10-29-2022 15:50-0500 Diastolic blood pressure 70 mm[Hg] Geovanna Daley MD, PhD Work Phone: [facility] 10-29-2022 15:50-0500 Heart rate 64 /min Geovanna Daley MD, PhD Work Phone: [facility] 10-29-2022 15:50-0500 SaO2% (BldA) [Mass fraction] 96 % Geovanna Daley MD, PhD Work Phone: [facility] 10-29-2022 15:50-0500 Systolic blood pressure 135 mm[Hg] Geovanna Daley MD, PhD Work Phone: [facility] 08-06-2022 10:19-0500 Body height 165.1 cm Geovanna Daley MD, PhD Work Phone: [facility] 08-06-2022 10:19-0500 Body weight 117.1 kg Geovanna Daley MD, PhD Work Phone: [facility] 08-06-2022 10:19-0500 Diastolic blood pressure 91 mm[Hg] Geovanna Daley MD, PhD Work Phone: [facility] 08-06-2022 10:19-0500 Heart rate 68 /min Geovanna Daley MD, PhD Work Phone: [facility] 08-06-2022 10:19-0500 Respiratory rate 16 /min Geovanna Daley MD, PhD Work Phone: [facility] 08-06-2022 10:19-0500 SaO2% (BldA) [Mass fraction] 100 % Geovanna Daley MD, PhD Work Phone: [facility] 08-06-2022 10:19-0500 Systolic blood pressure 165 mm[Hg] Geovanna Daley MD, PhD Work Phone: [facility] 07-12-2022 15:07-0500 Body height 165.1 cm Geovanna Daley MD, PhD Work Phone: [facility] 07-12-2022 15:07-0500 Body weight 114.4 kg Geovanna Daley MD, PhD Work Phone: [facility] 07-12-2022 15:07-0500 Diastolic blood pressure 85 mm[Hg] Geovanna Daley MD, PhD Work Phone: [facility] 07-12-2022 15:07-0500 Heart rate 65 /min Geovanna Daley MD, PhD Work Phone: [facility] 07-12-2022 15:07-0500 SaO2% (BldA) [Mass fraction] 98 % Geovanna Daley MD, PhD Work Phone: [facility] 07-12-2022 15:07-0500 Systolic blood pressure 142 mm[Hg] Geovanna Daley MD, PhD Work Phone: [facility] 06-11-2022 08:17-0400 Diastolic blood pressure 82 mm[Hg] [facility] Work Phone: 06-11-2022 08:17-0400 Heart rate 64 /min [facility] Work Phone: 06-11-2022 08:17-0400 Respiratory rate 18 /min [facility] Work Phone: 06-11-2022 08:17-0400 SaO2% (BldA) [Mass fraction] 98 % [facility] Work Phone: 06-11-2022 08:17-0400 Systolic blood pressure 171 mm[Hg] [facility] Work Phone: 06-11-2022 06:39-0400 Body temperature 97.8 [degF] [facility] Work Phone: 06-11-2022 06:34-0400 Body height 165.1 cm [facility] Work Phone: 06-11-2022 06:34-0400 Body mass index (BMI) [Ratio] 42.5 kg/m2 [facility] Work Phone: 06-11-2022 06:34-0400 Body weight 116.1 kg [facility] Work Phone: Encounters Encounter Date Encounter Type Care Provider Facility Start: 04-27-2025 End: 04-27-[address] Romina Francois MD Work Phone: [facility] Start: 04-27-2025 End: 04-27-2025 Patient encounter procedure Rosa M Smith APPLICATIONS CHEMIST-C [facility] Work Phone: Start: 12-21-2024 ambulatory Meme Santiago Facility:[facility] Start: 10-22-2024 End: 10-22-[address] Romina Francois MD Work Phone: [facility] Work Phone: Start: 10-22-2024 End: 10-22-[address] Romina Francois MD -Laboratory, [place] Start: 10-22-2024 End: 10-22-2024 ambulatory Romina Francois Facility:[facility] Start: 09-03-2024 End: 09-03-[address] Romina Francois MD -Outpatient [facility] Work Phone: Start: 09-03-2024 End: 09-03-2024 ambulatory Romina Francois Facility:[facility] Start: 08-31-2024 End: 08-31-[address] Romina Francois MD -Ultrasound, [facility] Work Phone: Start: 08-31-2024 End: 08-31-2024 ambulatory Romina Francois Facility:[facility] Start: 08-27-2024 End: 08-27-[address] Romina Francois MD -[facility] Work Phone: Start: 08-27-2024 End: 08-27-2024 ambulatory Romina Francois Facility:[facility] Start: 08-27-2024 End: 08-27-2024 ambulatory Romina Francois Facility:[facility] Start: 05-21-2024 End: 05-21-2024 Patient encounter procedure Geovanna Daley MD, PhD Work Phone: [facility] Comment on above: Lesion of thoracic v ertebra (Primary Dx) Start: 05-21-2024 End: 05-21-2024 ambulatory GEOVANNA DALEY Facility:[facility] Start: 05-14-2024 ambulatory GEOVANNA DALEY Facili ty:[facility] Start: 05-14-2024 End: 05-14-2024 Subsequent hospital visit by physician Mri [place] [employer]PER[employer] Comment on above: Radiculopathy of lum bar region [M54.16] Start: 10-01-2023 Non-patient / Non-visit Dr. Wu Work Phone: [facility] Start: 10-01-2023 End: 10-01-2023 Admission to same day surgery center Dr. Romina Francois Work Phone: [facility] Work Phone: Start: 10-01-2023 End: 10-01-[address] Romina Francois Work Phone: [facility] Work Phone: Start: 09-04-2023 Non-patient / Non-visit Dr. Wu Work Phone: [facility] Work Phone: Start: 06-06-2023 End: 06-06-2023 ambulatory No Primary Care Physician [facility] Work Phone: Start: 06-06-2023 End: 06-06-2023 Patient encounter procedure No Primary Care Physician [facility] Work Phone: Start: 05-16-2023 End: 05-16-2023 Patient encounter procedure Geovanna Daley MD, PhD Work Phone: [facility] Comment on above: Radiculopathy of lum bar region (Primary Dx); Lesion of thoracic vertebra Start: 05-09-2023 End: 05-09-2023 ambulatory No Primary Care Physician [facility] Work Phone: Start: 05-09-2023 End: 05-09-2023 Patient encounter procedure No Primary Care Physician [facility] Work Phone: Start: 04-18-2023 End: 04-18-2023 ambulatory No Primary Care Physician [facility] Work Phone: Start: 04-18-2023 End: 04-18-2023 Patient encounter procedure No Primary Care Physician [facility]Outpatient Breast [facility] Work Phone: Start: 04-16-2023 End: 04-16-2023 Patient encounter procedure No Primary Care Physician [facility], [facility] Start: 04-11-2023 End: 04-11-2023 Patient encounter procedure No Primary Care Physician [facility] Work Phone: Start: 10-29-2022 End: 10-29-2022 Patient encounter procedure Geovanna Daley MD, PhD Work Phone: [facility] Comment on above: Lesion of thoracic v ertebra (Primary Dx) Start: 08-06-2022 End: 08-06-2022 Patient encounter procedure Geovanna Daley MD, PhD Work Phone: [facility] Comment on above: Lesion of thoracic v ertebra (Primary Dx) Start: 07-18-2022 End: 07-18-2022 Subsequent hospital visit by physician [facility] [place] Neur/Spine 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 Comment on above: Thoracic spine tumor [D49.2] Start: 07-12-2022 End: 07-12-2022 Patient encounter procedure Geovanna Daley MD, PhD Work Phone: [facility] Comment on above: Lesion of thoracic v ertebra (Primary Dx); Disorder of bone; Thoracic spine tumor; Schwannoma Start: 07-03-2022 End: 07-03-2022 ambulatory [facility] Work Phone: Start: 07-03-2022 End: 07-03-2022 Patient encounter procedure [facility]-MRI - [facility] Start: 06-11-2022 End: 06-11-2022 Emergency department patient visit [facility]-Emergency Department Start: 08-08-2018 End: 08-08-2018 Emergency department patient visit [facility] Procedures Date Procedure Procedure Detail Performing Clinician Start: 09-03-2024 Screening mammography Neeraj Francois MD Work Phone: Start: 08-31-2024 US scan of thyroid Dr. Romina Francois MD Work Phone: Start: 10-01-[address] 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 Plan of Treatment Date Care Activity Detail Author Start: 09-01-2028 Urine microalbumin profile DTaP,Tdap,Td Vaccine (2 - Td or Tdap) [facility] Start: 04-27-2025 T4 free measurement [facility] Start: 04-27-2025 Thyroid stimulating hormone measurement [facility] Start: 05-21-2024 End: 05-21-2024 Patient encounter procedure 05/21/2024 3:45 PM EDT Office Visit [facility] [address] [place] [id number] Geovanna Daley MD, PhD [address] [facility] [address] [place], [place] [id number] 1 year follow up [facility] Comment on above: 1 year follow up Start: 04-26-2024 Covid-19 Vaccine ( season) Covid-19 Vaccine ( season) [facility] Start: 04-26-2024 Covid-19 Vaccine ( season) Covid-19 Vaccine ( season) [facility] Start: 04-26-2024 Influenza vaccination Influenza Vacc ine (#1) [facility] Start: 10-01-2023 Patient discharge [facility] Start: 08-13-2023 Lipid panel Lipid Screening [facility] Start: 04-27-2023 DIABETES SCREEN DIABETES SCREEN [facility] Start: 04-27-2023 Diabetes Screening Diabetes Screenin g [facility] Start: 04-26-2023 Influenza vaccination Influenza Vacc ine (#1) [facility] Start: 04-11-2023 Patient referral [facility] Work Phone: Start: 08-26-2022 DEPRESSION ASSESSMENT DEPRESSION ASS [facility] Start: 04-26-2022 Influenza vaccination INFLUENZA (#1) [facility] Start: 08-26-2021 [facility] Start: 2021 COLOGUARD (FIT-DNA) COLOGUARD (FIT-D NA) [facility] Start: 2021 Colonoscopy COLONOSCOPY [facility] Start: 2021 COLORECTAL CANCER SCREENING COLORECTAL CANCER SCREENING [facility] Start: [address] COLONOGRAPHY [facility] Start: 2021 FECAL OCCULT BLOOD FECAL OCCULT BLOO D [facility] Start: 2021 Lipid 1996 panel - S sherri or Plasma Lipid Screening [facility] Start: 2021 LIPID SCREEN LIPID SCREEN [facility] Start: 2021 Screening for malign ant neoplasm of colon [facility] Start: 2021 SIGMOIDOSCOPY SIGMOIDOSCOPY [facility] Start: 2016 Mammography [facility] Start: 2016 Screening for malign ant neoplasm of breast Mammogram Screening [facility] Start: 2006 HPV TESTING HPV TESTING [facility] Start: 1997 PAP TESTING PAP TESTING [facility] Start: 1997 Screening for malign ant neoplasm of cervix Cervical Cancer Screening [facility] Start: 1995 Hepatitis B Vaccine (1 of 3 - 19+ 3-dose series) Hepatitis B Vaccine (1 of 3 - 19+ 3-dose series) [facility] Start: 1995 Urine microalbumin profile [facility] Start: 1994 Anxiety Screening Anxiety Screening [facility] Start: 1994 Depression Screening Depression Scre ening [facility] Start: 1994 HEPATITIS C SCREENING HEPATITIS C [facility] Start: 1994 Hepatitis C screening Hepatitis C [facility] Start: 1994 HIV SCREENING HIV SCREENING [facility] Start: 1994 HIV screening HIV Screening [facility] Start: 1982 PNEUMOCOCCAL (1 - PCV) PNEUMOCOCCAL (1 - PCV) [facility] Start: 1982 Pneumococcal vaccination [facility] Start: 01-04-1977 COVID-19 VACCINE (#1) COVID-19 VACCI NE (#1) [facility] Start: 1976 HEPATITIS B (1 of 3 - 3-dose series) HEPATITIS B (1 of 3 - 3-dose series) [facility] Start: 1976 Hepatitis B Vaccine (1 of 3 - 3-dose series) Hepatitis B Vaccine (1 of 3 - 3-dose series) [facility] Colonoscopy [facility] End: 08-11-2023 Ct lumbar spine w/o contrast material CT LUMBAR SPINE WO IVCON Radiology Routine Thoracic spine tumor 1 Occurrences starting 07/12/2022 until 08/11/2023 [facility] Work Phone: Comment on above: 1 Occurrences starti ng 07/12/2022 until 08/11/2023 End: 07-18-2022 Ct lumbar spine w/o contrast material [facility] Work Phone: Comment on above: 1 Occurrences starti ng 07/18/2022 until 07/18/2022 End: 08-11-2023 Ct thoracic spine w/o contrast material CT THORACIC SPINE WO IVCON Radiology Routine Thoracic spine tumor 1 Occurrences starting 07/12/2022 until 08/11/2023 [facility] Work Phone: Comment on above: 1 Occurrences starti ng 07/12/2022 until 08/11/2023 End: 07-18-2022 Ct thoracic spine w/o contrast material [facility] Work Phone: Comment on above: 1 Occurrences starti ng 07/18/2022 until 07/18/2022 MR Thoracic spine WO contrast MRI THORACIC SPINE WO IVCON Radiology Routine Radiculopathy of lumbar region Lesion of thoracic vertebra 05/14/2024 1:58 PM EDT [facility] Work Phone: End: 08-11-2023 Mri spinal canal lumbar w/o & w/contr matrl MRI LUMBAR SPINE WO/W IVCON Radiology Routine Schwannoma 1 Occurrences starting 07/12/2022 until 08/11/2023 [facility] Work Phone: Comment on above: 1 Occurrences starti ng 07/12/2022 until 08/11/2023 End: 07-18-2022 Mri spinal canal lumbar w/o & w/contr matrl [facility] Work Phone: Comment on above: 1 Occurrences starti ng 07/18/2022 until 07/18/2022 End: 08-11-2023 Mri spinal canal thoracic w/o & w/contr matrl MRI THORACIC SPINE WO/W IVCON Radiology Routine Thoracic spine tumor 1 Occurrences starting 07/12/2022 until 08/11/2023 [facility] Work Phone: Comment on above: 1 Occurrences starti ng 07/12/2022 until 08/11/2023 End: 07-18-2022 Mri spinal canal thoracic w/o & w/contr matrl [facility] Work Phone: Comment on above: 1 Occurrences starti ng 07/18/2022 until 07/18/2022 End: 06-14-2024 Mri spinal canal thoracic w/o contrast matrl MRI THORACIC SPINE WO IVCON Radiology Routine Radiculopathy of lumbar region Lesion of thoracic vertebra 1 Occurrences starting 05/16/2023 until 06/14/2024 [facility] Work Phone: Comment on above: 1 Occurrences starti ng 05/16/2023 until 06/14/2024 Patient Education ED Back Spasm, No Trauma ED Back Sprain/Strain [facility] Work Phone: Patient referral [facility] Work Phone: Polysomnography [facility] Tobacco use cessatio n education [facility] Tobacco use cessatio n education [facility] Tobacco use cessatio n education [facility] Immunizations Immunization Date Immunization Notes Care Provider Fa deanne 09-01-2018 tetanus toxoid, redu daniel diphtheria toxoid, and acellular pertussis vaccine, adsorbed No Primary Care Physician [facility] Payers Date Payer Category Payer Self-pay [id number] 2022 Unknown [employer] PPO [id number] 2022-Present [phone] [address] [place] [address] PPO [id number] 2022 Unknown [id number] Unknown [facility] PACKAGE PLAN [id number] Unknown [id number] Unknown [id number] Unknown [id number] Unknown [id number] Unknown [id number] Unknown [id number] Social History Date Type Detail Facility Start: 06-11-2022 End: 10-01-2023 Tobacco smoking status NHIS Unknown if ever smoked [facility] Start: 1975 Sex Assigned At Female W [facility] Start: 07-12-2022 End: 04-20-2025 Tobacco smoking status NHIS Smokes tobacco daily [facility] End: 10-24-2021 History of tobacco use Cigarette Smoker [facility] Start: 07-12-2022 End: 05-21-2024 Cigarettes smoked current (pack per day) - Reported 0.5 [facility] Start: 07-12-2022 End: 05-21-2024 Tobacco use and exposure Smokeless tobacco non-user [facility] Start: 07-12-2022 End: 05-21-2024 Alcohol intake Current drinker of alcohol (finding) [facility] Start: 07-12-2022 Tobacco Comment since age 34yrs [facility] Start: 07-22-2017 Alcohol Comment monthly [facility] Start: 1975 Sex Assigned At Not on file [facility] Start: 07-02-2022 End: 07-18-2022 Exposure to SARS-CoV-2 (event) Not sure [facility] Start: 08-06-2022 Tobacco smoking stat us NHIS Ex-smoker [facility] End: 10-24-2021 History of tobacco use Current smoker [facility] Start: 05-16-2023 End: 05-21-2024 Tobacco use panel [facility] PHQ-2 Score 0 [facility] Start: 11-04-2024 Sex Female (finding) [facility] NEGATED: Highlighted row [facility] Work Phone: Medical Equipment Procedure Code Equipment Code Equipment Origin al Text Equipment Identifier Dates Colonoscopy Ligation clip, metallic [id number] FDA Start: 10-01-2023 Colonoscopy Ligation clip, metallic ()[id number] FDA Start: 10-01-2023 Goals Date Patient Goal Desired Activity /State Mental Status Date Assessment Result Facility 10-01-2023 Cognitive function Voice/Name [facility] Work Phone: Clinical Notes 07-12-2022 to 08-27-2024 Note Date & Type Note Facility 08-27-2024 Evaluation note Diagnosis Onset Date Resolution Elevated TSH acute August 27, 2024 7:32am Vitamin D deficiency acute Rey [facility]ber 2024 7:32am Thyroid nodule noneactive August 7:32am Screening for cardiovascular condition noneactive August 27, 2024 7:32am Influenza vaccination declined noneactive August 27 7:32am Electronic cigarette use noneactive August 27, 2024 7:32am Essential hypertension noneactive [facility] 2024 7:32am Morbid obesity with BMI of 40.0-44.9, adult noneactive August 27, 2024 7:32am Low energy noneactive August 27 7:32am Screening for breast cancer noneactive August 27 7:32am [facility] Work Phone: [phone] 292-953809-26-2024 History of Present illness Narrative* Geovanna Daley MD, PhD - 05/21/2024 3:45 PM EDT NEUROSURGERY FOLLOW UP OFFICE NOTE Geovanna Daley MD, PhD Date of visit: May 21, 2024 Patient Name: Ms.Tracy Rosalie Rocha Date of : 1975 Current Age: [age] year old Sex: female MRN/E# [id number] Last Office Visit: Visit date not found Chief Complaint: Patient presents with: Established Patient SUBJECTIVE: HPI The patient was last evaluated in the office on 10/29/2022 with resolution of her lumbar pain. She noted at times, left lateral calf pain that was intermittent in nature. She noted an increase of headaches and pain to the base of her skull and cervical. She noted with driving her arms and hands will become numb. She noted having to sleep in in a chair. She noted dropping items and difficulties withfine motor. It was recommended that she follow up in 6 months. At her last visit on 05/16/2023 she stated she had been doing well since her last visit. She noted intermittent left lateral calf pain and low back pain. She noted flare ups of the back and calf pain. She continued with headaches and cervical pain that radiated up the base of her skull. She noted her hands and arms are numb with driving. She denied dropping items or fine motor difficulties. 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 This has been causing cord impingement but she hasnot had any neurological symptoms. It was recommended that she follow up in 1 year with a repeat MRI, prompting her visit today. Today she states she has been doing well since her last visit. She continues with intermittent low back pain with pain into the calf at times. Endorses numbness and tingling into the legs and feet. Continues with cervical pain and headaches up the base of her skull. Notes paresthesia with her arms up driving. Notes if she sleeps in a recliner her cervical pain resolves. She denies any falls, lossof bowel or bladder. She presents for imaging review, evaluation and plan of care. Symptoms: left lateral calf pain. Intermittent left lumbar pain with increased activity. Smoker: endorses. 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 PAST MEDICAL HISTORY Diagnosis Date Disorder of thyroid PAST SURGICAL HISTORY Procedure Laterality Date SECTION HX HYSTERECTOMY HX FAMILY HISTORY Problem Relation Age of Onset Diabetes Mother Diabetes Father Rheumatologic disease Father ALLERGIES Allergen Reactions Penicillin Hives Current Outpatient Medications Medication Sig Dispense Refill Cholecalciferol, Vitamin D3, 25 mcg (1,000 unit) cap Take 1,000 Units by mouth. (Patient not taking: Reported on 05/21/2024) No current facility-administered medications for this visit. REVIEW OF SYSTEMS Review of Systems Constitutional: Negative for chills, fatigue and fever. HENT: Negative for congestion and sore throat. Eyes: Negative for discharge, itching and visual disturbance. Respiratory: Negative for cough and shortness of breath. Cardiovascular: Negative for chest pain and palpitations. Gastrointestinal: Negative for constipation, diarrhea, nausea and vomiting. Endocrine: Negative for cold intolerance and heat intolerance. Genitourinary: Negative for difficulty urinating, frequency and urgency. Musculoskeletal: Positive for back pain, neck pain and neck stiffness. Negative for gait problem. Skin: Negative for rash and wound. Allergic/Immunologic: Negative for environmental allergies and food allergies. Neurological: Positive for numbness and headaches. Negative for dizziness, weakness and light-headedness. Hematological: Does not bruise/bleed easily. Psychiatric/Behavioral: Negative for agitation. The patient is not nervous/anxious. OBJECTIVE: BP 137/80 Pulse 62 Ht 5' 5 (1.65m) Wt 242 lb 1 oz (109.8kg) SpO2 97% BMI 40.28 kg/(m^2). Physical Exam General Examination BP 137/80 (BP Site: Left Arm, BP Position: Sitting, BP Cuff Size: Extra Large Adult) Pulse 62 Ht 5' 5 (1.651 m) Wt 242 lb 1 oz (109.8 kg) SpO2 97% BMI 40.28 kg/m General Exam Neurological Exam Mental Status Soco has lower midline lumbar tenderness for soft tissues over her upper sacrum. Motor Examination and Coordination Neuromuscular Examination Extremity Muscles Lower Extremity Right Left Hip flexion 5 5 Knee flexion 5 5 Knee extension 5 5 Ankle plantarflexion 5 5 Ankle dorsiflexion 5 5 Reflexes Deep tendon reflexes graded by MRC Deep Tendon Reflexes Right Left Patellar 0 0 Achilles 0 0 Soco did not exhibit ankle clonus Sensation Soco reported numbness at the lateral aspect of her left foot. Soco did not exhibit pain with passive joint range of motion or CLARITA testing. Straight leg raising was negative bilaterally. She did not have discomfort with sacroiliac joint provocative maneuvers. Data Review IMAGING STUDIES: MRI Thoracic Spine 05/14/2024: IMPRESSION: 1. 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 2. T11-12 lesion in question represents disc protrusion effacing ventral CSF. 3. No focal area of significant thoracic canal/foramina narrowing. Assessment and Plan: The main purpose of today's appointment with Soco was to follow-up her lower thoracic disc herniation which had been markedly compressing her thoracic spinal cord. Curiously this had never been associated with neurological symptoms. Ultimately after a long period of observation we decided to follow her in a year with a repeat MRI. That was the purpose of today's appointment. Her repeat MRI showsresolution of the large disc herniation. Soco did ask me to examine her in relation to her reported left leg numbness and occasional shooting pain. She had numbness and what I felt was an S1 distribution. It was not clear if the nuclear pain was in the same dermatome. It seemed as though she reports this is being more in the sole of her foot. In any event if the symptoms do relate to a radiculopathy it is a mild 1. I discussed with Soco the typical conservative treatments that we start with. In particular I discussed oral medications and physical therapy and she expressed disinterest in either of these. As such I would not recommend proceeding with an MRI and indeed it would likely not be approved. Soco indicated that she wouldcontact my office in the future if she feels that she is not tolerating her symptoms and I think that is a very reasonable approach. I wished her all the best. Attestation: The following portions of the patient's history were reviewed, confirmed, and updated as necessary: allergies, current medications, past family history, past medical history, past socialhistory, past surgical history, problem list, HPI, and ROS obtained by others. Some elements may be copied from a previous office note and have been reviewed/updated where appropriate. All portions reflect current medical decision making from today. The clinical and radiographic findings as well as the risks, benefits and alternatives of treatmenthave been reviewed in detail with the patient. The patient was advised to call the office if symptoms worsen or new symptoms develop. The patient expressed understanding and is in agreement with plan. Geovanna Daley MD, PhD This note was partially generated using [employer] voice recognition system, and there may be some incorrect words, spellings, and punctuation that were not noted in checking the note before saving. documented in this [facility]24 NoteHNO ID: [id number] Author: GEOVANNA DALEY MD, PhD Service: ? Author Type: Physician Type: Progress Notes Filed: 05/21/2024 16:57 Note Text: NEUROSURGERY FOLLOW UP OFFICE NOTE Geovanna Daley MD, PhD Date of visit: May 21, 2024 Patient Name: Ms.Tracy Rosalie Rocha Date of : 1975 Current Age: [age] year old Sex: female MRN/E# [id number] Last Office Visit: Visit date not found Chief Complaint: Patient presents with: Established Patient SUBJECTIVE: HPI The patient was last evaluated in the office on 10/29/2022 with resolution of her lumbar pain. She noted at times, left lateral calf pain that was intermittent in nature. She noted an increase of headaches and pain to the base of her skull and cervical. She noted with driving her arms and hands will become numb. She noted having to sleep in in a chair. She noted dropping items and difficulties with fine motor. It was recommended that she follow up in 6 months. At her last visit on 05/16/2023 she stated she had been doing well since her last visit. She noted intermittent left lateral calf pain and low back pain. She noted flare ups of the back and calf pain. She continued with headaches and cervical pain that radiated up the base of her skull. She noted her hands and arms are numb with driving. She denied dropping items or fine motor difficulties. 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 This has been causing cord impingement but she has not had any neurological symptoms. It was recommended that she follow up in 1 year with a repeat MRI, prompting her visit today. Today she states she has been doing well since her last visit. She continues with intermittent low back pain with pain into the calf at times. Endorses numbness and tingling into the legs and feet. Continues with cervical pain and headaches up the base of her skull. Notes paresthesia with her arms up driving. Notes if she sleeps in a recliner her cervical pain resolves. She denies any falls, loss of bowel or bladder. She presents for imaging review, evaluation and plan of care. Symptoms: left lateral calf pain. Intermittent left lumbar pain with increased activity. Smoker: endorses. 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 PAST MEDICAL HISTORY Diagnosis Date Disorder of thyroid PAST SURGICAL HISTORY Procedure Laterality Date SECTION HX HYSTERECTOMY HX FAMILY HISTORY Problem Relation Age of Onset Diabetes Mother Diabetes Father Rheumatologic disease Father ALLERGIES Allergen Reactions Penicillin Hives Current Outpatient Medications Medication Sig Dispense Refill Cholecalciferol, Vitamin D3, 25 mcg (1,000 unit) cap Take 1,000 Units by mouth. (Patient not taking: Reported on 05/21/2024) No current facility-administered medications for this visit. REVIEW OF SYSTEMS Review of Systems Constitutional: Negative for chills, fatigue and fever. HENT: Negative for congestion and sore throat. Eyes: Negative for discharge, itching and visual disturbance. Respiratory: Negative for cough and shortness of breath. Cardiovascular: Negative for chest pain and palpitations. Gastrointestinal: Negative for constipation, diarrhea, nausea and vomiting. Endocrine: Negative for cold intolerance and heat intolerance. Genitourinary: Negative for difficulty urinating, frequency and urgency. Musculoskeletal: Positive for back pain, neck pain and neck stiffness. Negative for gait problem. Skin: Negative for rash and wound. Allergic/Immunologic: Negative for environmental allergies and food allergies. Neurological: Positive for numbness and headaches. Negative for dizziness, weakness and light-headedness. Hematological: Does not bruise/bleed easily. Psychiatric/Behavioral: Negative for agitation. The patient is not nervous/anxious. OBJECTIVE: BP 137/80 Pulse 62 Ht 5' 5 (1.65m) Wt 242 lb 1 oz (109.8kg) SpO2 97% BMI 40.28 kg/(m2). Physical Exam General Examination BP 137/80 (BP Site: Left Arm, BP Position: Sitting, BP Cuff Size: Extra Large Adult) Pulse 62 Ht 5' 5 (1.651 m) Wt 242 lb 1 oz (109.8 kg) SpO2 97% BMI 40.28 kg/m? General Exam Neurological Exam Mental Status Soco has lower midline lumbar tenderness for soft tissues over her upper sacrum. Motor Examination and Coordination Neuromuscular Examination Extremity Muscles Lower Extremity Right Left Hip flexion 5 5 Knee flexion 5 5 Knee extension 5 5 Ankle plantarflexion 5 5 Ankle dorsiflexion 5 5 Reflexes Deep tendon reflexes graded by MRC Deep Tendon Reflexes Right Left Patellar 0 0 Achilles 0 0 Soco did not exhibit ankle clonus Sensation Soco r (more content not included)...[facility]02-06-2024 Progress note Author Eros Jennings [facility] October 01, 2023 4:45pm Note Date/Time October 01, 2023 4 :45pm [facility] Medical Records Department [address] [place] [address] Progress Note 10/01/23 1644 MR#: [id number] Acct: [id number] Name: SOCO ROCHA Rep #:[id number] : 1975 48 From: Eros tovar MD PCP: Dr. Romina Francois MD [place] [place] [address] Progress Note The patient was taken for flexible sigmoidoscopy. The sigmoid polyp site was bleeding with a spurting vessel. 3 clips were placed over this and maintain good hemostasis. The area is irrigated and suctioned dry. The remainder the colonwas irrigated and suctioned dry and there was no more active bleeding or clotting. I will check an H&H before she goes home to ensure that she is not anemic at this time. The patient did vomit during the procedure but she was on her side and most of it came out. I will also check a chest x-ray and admit herif there is any concern for aspiration. 10/01/23 1645 <Electronically signed by Eros Jennings MD> Eros Jennings MD Cosigner Signature (if applicable): CC: ~ Signed [facility] Work Phone: 1(392) 529-580502-06-2024 Progress [facility] October 01, 2023 3:38pm Note Date/Time October 01, 2023 3 :38pm [facility] Medical Records Department [address] [place] [id number] Progress Note - Surgery 10/01/23 1536 MR#: [id number] Acct: [id number] Name: SOCO ROCHA Rep #:[id number] : 1975 48 From: Eros tovar MD PCP: Dr. Romina Francois MD [place] [place] [address] Subjective Subjective The patient had bleeding after colonoscopy today. She reports that she went home and a few hours later she felt like she needed to go the bathroom and it was all blood and she filled the toilet with blood. She had 2 subsequent bloodybowel movements passing large amounts of clot and so she came back. Objective Data Objective Data Vital Signs: Vital Signs Temp Pulse Resp BP Pulse Ox O2 Del Method 97.3 F L 60 16 147/78 H 100 Room Air 10/01/23 09:20 10/01/23 09:20 10/01/23 09:20 10/01/23 09:20 10/01/23 09:20 10/01/23 09:20 Oxygen Delivery Method Room Air Weight: 243 lb Body Mass Index (BMI) 40.4 Intake & Output: Intake and Output for Last 24 Hours 09/29/23 09/30/23 10/01/23 23:59 23:59 23:59 Intake Total 600 / 600 Balance 600 / 600 Assessment & Plan Assessment/Plan (1) Post-polypectomy bleeding: PLAN: The patient is having ongoing bleeding after having a polypectomy this morning during her colonoscopy. I will take her back and perform flexible sigmoidoscopy. One polypectomy site was sigmoid and 1 was in the rectum. I will check out both sites and place clips or inject or cauterize if needed. I discussed this with her in detail and she is in agreement. Eros Jennings MD Pager: [facility] [address] [place] [address], [address] [place] [address] Office: 10/01/23 7001 <Electronically signed by Eros Jennings MD> Cosigner Signature (if applicable): CC: ~ Signed [facility] Work Phone: 1(841) 316-871802-06-2024 History and physical note Author Eros Jennings [facility] October 01, 2023 8:28am Note Date/Time October 01, 2023 8 :28am [facility] Medical Records Department [address] [place] [address] History & Physical Exam 10/01/23825 MR#: [id number] Acct: [id number] Name: SOCO ROCHA Rep #:[id number] : 1975 48 From: Eros tovar MD PCP: Dr. Romina Francois MD Status:[facility] Location: [place] [address] HPI - General HPI Narrative SOCO ROCHA, is a 48 F who presents for screening colonoscopy. Patient has neverhad a colonoscopy in the past. She denies any abdominal pain or nausea or vomiting. She has no blood in the stool. She is not on blood thinners. She has no family history of colon cancer. PFSH Medical History (Updated 09/26/23 @ 12:24 by Ky Brown) Back pain Chronic headaches Electronic cigarette use Elevated TSH Endometriosis History of back problems Hypertension Seasonal allergies Vitamin D deficiency Wears partial dentures Home Medications NK 10/01/23 [History Last Taken Unknown] Allergy/AdvReac Type Severity Reaction Status Date / Time Penicillins [PCN] AdvReac Hives Verified 10/01/23 07:14 Family History (Updated 09/04/23 @ 11:50 by Sindi Merlos) Father Hypertension Diabetes Rheumatoid arthritis Sleep apnea Colon polyps Mother Diabetes Cancer Skin cancer Daughter Thyroid cancer Aunt Breast cancer Grandmother Cancer pancreatic Surgical History delivery delivered H/O: hysterectomy Social History household members: none current occupational status: employed current occupation: [employer] Smoking Status: Current every day smoker tobacco type: e-cigarettes Electronic Cigarette Use: with nicotine alcohol intake: current alcohol intake frequency: holidays/special occasions only substance use type: does not use what type of physical activity do you participate in: walking frequency: daily seatbelt use: sometimes do you feel safe at home: Yes Past Medical/Surgical History Planned Operation Planned Operative Procedure/s: COLONOSCOPY Previous Hospitalizations/Surgeries HX Hospitalizations: No Any Problems With Anesthesia: Yes (PONV) You/Your Family Experience Fever (Hyperthermia) With Anes: No Cholinesterase deficiency: No Cardiovascular Hx Hypertension: No Respiratory Hx Sleep Apnea: No Hx Respiratory Tract Infection/Cold (presently): No Do You Snore Loudly (louder than talking or can be heard): No Do You Often Feel Tired/ Fatigued/ Sleepy Dring Daytime?: No Has Anyone Observed You Stop Breathing During Sleep?: No Result (for STOP score): Negative Smoking Status: Current every day smoker Neurological Does patient have nerve stimulator: No Miscellaneous Recent Exposure to Contagious Disease: No Allergies Penicillins [PCN] Adverse Reaction (Verified 10/01/23 07:14) Hives Discharge After D/C, Where Do you Plan to Go: Return Home Vital Signs Vital Signs Vital Signs: 10/01/23 07:15 10/01/23 07:15 Temperature 98.6 F Temperature Source Temporal Pulse Rate 63 Respiratory Rate 16 Respiratory Pattern Normal Blood Pressure 137/75 H Blood Pressure Mean 95 Blood Pressure Source Monitor Blood Pressure Position Semi-Fowlers Blood Pressure Location Left Forearm Pulse Ox 95 Oxygen Delivery Method Room Air Weight Weight: 243 lb Body Mass Index (BMI) 40.4 Physical Exam Const alert and oriented x3 HEENT normocephalic Eyes PERRL Resp normal respiratory effort and normal air movement Cardio regular rate and regular rhythm GI soft to palpation, non-tender and non-distended Extremity normal to inspection Assessment & Plan Assessment/Plan (1) Encounter for screening for malignant neoplasm of colon: PLAN: I explained endoscopy in detail to the patient. I explained the risks including but not limited to stroke or heart attack with anesthesia, perforation of the GI tract, bleeding, infection. I explained that any of these could necessitate further emergency surgery. The patient understands and all questions were answered sufficiently. The patient wishes to proceed with procedure. Eros Jennings MD Pager: [facility] [address] [place] [address], [address] [place] [phone] Office: Surgery Risks - Colonoscopy Risks Include but are not Limited To: Risks include but are not limited to: Bleeding, perforation requiring further surgery, inability to complete colonoscopy requiring barium enema. 10/01/23827 <Electronically signed by Eros Jennings MD> Cosigner Signature (if applicable): CC: Dr. Romina Francois MD; Dr. Eros Jennings MD~ Signed [facility] Work Phone: 1(282) 273-832702-06-2024 Procedure [facility] 10-01-2023 Procedure [facility]09-21-2023 History of Present illness Narrative* Geovanna Daley MD, PhD - 05/16/2023 3:30 PM EDT NEUROSURGERY FOLLOW UP OFFICE NOTE Geovanna Daley MD, PhD Date of visit: May 16, 2023 Patient Name: Ms.Tracy Rosalie Rocha Date of : 1975 Current Age: [age] year old Sex: female MRN/E# [id number] Last Office Visit: Visit date not found Chief Complaint: Patient presents with: Established Patient SUBJECTIVE: HPI The patient was last evaluated in the office on 10/29/2022 with resolution of her lumbar pain. She noted at times, left lateral calf pain that was intermittent in nature. She noted an increase of headaches and pain to the base of her skull and cervical. She noted with driving her arms and hands will become numb. She noted having to sleep in in a chair. She noted dropping items and difficulties withfine motor. It was recommended that she follow up in 6 months, prompting her visit today. Today she states she has been doing well since her last visit. She notes intermittent left lateral calf pain and low back pain. She notes flare ups of the back and calf pain. She continues with headaches and cervical pain that radiate up the base of her skill. Sh notes her hands and arms are numbwith driving. She denies dropping items or fine motor difficulties. She presents for evaluation and plan of care. Symptoms: left lateral calf pain. Intermittent left lumbar pain with increased activity. Smoker: endorses. 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 PREVIOUS CONSERVATIVE TREATMENTS: Voltaren Home exercises Naproxen Medrol Dosepak Percocet Methocarbamol Advil PREVIOUS SURGERY: None PAIN EVALUATION 05/16/2023 1522 Pain Level: 0 Pain Location: Neck PAST MEDICAL HISTORY Diagnosis Date Disorder of thyroid PAST SURGICAL HISTORY Procedure Laterality Date SECTION HX HYSTERECTOMY HX FAMILY HISTORY Problem Relation Age of Onset Diabetes Mother Diabetes Father Rheumatologic disease Father ALLERGIES Allergen Reactions Penicillin Hives Current Outpatient Medications Medication Sig Dispense Refill Cholecalciferol, Vitamin D3, 25 mcg (1,000 unit) cap Take 1,000 Units by mouth. No current facility-administered medications for this visit. REVIEW OF SYSTEMS Review of Systems Constitutional: Negative for chills, fatigue and fever. HENT: Negative for congestion and sore throat. Eyes: Negative for discharge, itching and visual disturbance. Respiratory: Negative for cough and shortness of breath. Cardiovascular: Negative for chest pain and palpitations. Gastrointestinal: Negative for constipation, diarrhea, nausea and vomiting. Endocrine: Negative for cold intolerance and heat intolerance. Genitourinary: Negative for difficulty urinating, frequency and urgency. Musculoskeletal: Positive for back pain and neck pain. Negative for gait problem and neck stiffness. Skin: Negative for rash and wound. Allergic/Immunologic: Negative for environmental allergies and food allergies. Neurological: Positive for numbness and headaches. Negative for dizziness, weakness and light-headedness. Hematological: Does not bruise/bleed easily. Psychiatric/Behavioral: Negative for agitation. The patient is not nervous/anxious. OBJECTIVE: BP 134/78 Pulse 67 Ht 5' 5 (1.65m) Wt 245 lb 2.4 oz (111.2kg) SpO2 98% BMI 40.80 kg/(m^2). Physical Exam On my physical examination of Soco today I felt that she had globally flaccid reflexes with full power in all lower extremity myotomes bilaterally with intact sensation to light touch in all lower extremity dermatomes bilaterally. Data Review IMAGING STUDIES: No new imaging Assessment and Plan: I have been keeping an eye on Soco with respect to a large disc herniation that we have diagnosed at T11-12. This has been causing cord impingement but at no point has she had any neurological symptoms. She has been having intermittent periods of back pain however. We agreed together to see each other again in 1 years time. I will repeat an MRI without contrast at that point in time to help provide reassurance that the herniated disc is reabsorbed. Most importantly Soco understands that she is to contact my office in the interim if she should have any numbness or weakness develop in her legs. We are both quite comfortable with this plan. Attestation: The following portions of the patient's history were reviewed, confirmed, and updated as necessary: allergies, current medications, past family history, past medical history, past socialhistory, past surgical history, problem list, HPI, and ROS obtained by others. Some elements may be copied from a previous office note and have been reviewed/updated where appropriate. All portions reflect current medical decision making from today. The clinical and radiographic findings as well as the risks, benefits and alternatives of treatmenthave been reviewed in detail with the patient. The patient was advised to call the office if symptoms worsen or new symptoms develop. The patient expressed understanding and is in agreement with plan. Geovanna Daley MD, PhD This note was partially generated using [employer] recognition system, and there may be some incorrect words, spellings, and punctuation that were not noted in checking the note before saving. documented in this encounter[facility] History of Present illness Narrative* Geovanna Daley MD, PhD - 10/29/2022 3:45 PM EST NEUROSURGERY FOLLOW UP OFFICE NOTE Geovanna Daley MD, PhD Date of visit: October 29, 2022 Patient Name: Ms.Tracy Rosalie Rocha Date of : 1975 Current Age: [age] year old Sex: female MRN/E# [id number] Last Office Visit: 08/06/2022 Chief Complaint: Patient presents with: Established Patient SUBJECTIVE: HPI At the patients last visit on 08/06/2022 she noted she had been doing well. She noted her pain was not as severe, but noted a decrease in her activity. She noted her left lumbar pain had since resolved. She continued with left lateral calf pain. She noted her numbness and tingling to the left foot had improved. Surgical interventions were discussed at that time. She had wished to pursue non-operative management at her last visit. She was to follow up in 3 months to re-discuss interventions, prompting her visit today. Today she states she has been doing well since her last visit. She notes the lumbar pain has since resolved. She notes at times left lateral calf pain that is intermittent in nature. She notes latelyan increase of headaches and base of skull/cervical pain. She notes at times or when she is drivingher arms and hands will go numb. She notes she has to sleep sitting up in a chair. She notes dropping items and difficulty with fine motor activities. She denies any falls. She presents for evaluation and plan of care. Symptoms: left lateral calf pain. Intermittent left lumbar pain with increased activity. Smoker: endorses. 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 No pertinent past medical history. PAST SURGICAL HISTORY Procedure Laterality Date SECTION HX HYSTERECTOMY HX FAMILY HISTORY Problem Relation Age of Onset Diabetes Mother Diabetes Father Rheumatologic disease Father ALLERGIES Allergen Reactions Penicillin Hives No current outpatient medications on file. No current facility-administered medications for this visit. REVIEW OF SYSTEMS Review of Systems Constitutional: Negative for chills, fatigue and fever. HENT: Negative for congestion and sore throat. Eyes: Negative for discharge, itching and visual disturbance. Respiratory: Negative for cough and shortness of breath. Cardiovascular: Negative for chest pain and palpitations. Gastrointestinal: Negative for constipation, diarrhea, nausea and vomiting. Endocrine: Negative for cold intolerance and heat intolerance. Genitourinary: Negative for difficulty urinating, frequency and urgency. Musculoskeletal: Positive for neck pain and neck stiffness. Negative for back pain and gait problem. Skin: Negative for rash and wound. Allergic/Immunologic: Negative for environmental allergies and food allergies. Neurological: Positive for headaches. Negative for dizziness, weakness, light- headedness and numbness. Hematological: Does not bruise/bleed easily. Psychiatric/Behavioral: Negative for agitation. The patient is not nervous/anxious. OBJECTIVE: BP 135/70 Pulse 64 Ht 5' 5 (1.65m) Wt 256 lb 2.8 oz (116.2kg) SpO2 96% BMI 42.63 kg/(m^2). Physical Exam I repeated a physical examination with Soco today. She continues to have an intact lower extremityneurological examination without weakness numbness or upper motor neuron findings. Because of her complaints of occipital headache I completed a cranial nerve examination which was unremarkable and Ishould additionally note that an examination of her upper extremities failed to reveal problems with strength sensation or upper motor findings as well. Data Review IMAGING STUDIES: no new imaging Assessment and Plan: At this point Soco continues to feel that her back and leg symptoms are improving and I am optimistic that this is reflective of reabsorption of her large disc herniation. I am reluctant to discharge Soco from follow-up given the large size of the disc. We agreed to a reassessment in 6 months time. My main goal in this follow-up is to make sure that she does not develop subtle signs of cord compression that she might not appreciate. Soco today was concerned about suboccipital headache that has been troubling her for the last several months. I found an old MR brain from 2019 that does not reveal any evidence of Chiari malformation. Given that this would be congenital I do not think that there is evidence of a neurosurgically correctable cause for this headache. I encouraged Soco to follow-up with a primary care provider in this regard. Christa indicated that she does not have one and will need to find one. Geovanna Daley MD, PhD Attestation: The following portions of the patient's history were reviewed, confirmed, and updated as necessary: allergies, current medications, past family history, past medical history, past socialhistory, past surgical history, problem list, HPI, and ROS obtained by others. Some elements may be copied from a previous office note and have been reviewed/updated where appropriate. All portions reflect current medical decision making from today. The clinical and radiographic findings as well as the risks, benefits and alternatives of treatmenthave been reviewed in detail with the patient. The patient was advised to call the office if symptoms worsen or new symptoms develop. The patient expressed understanding and is in agreement with plan. Geovanna Daley MD, PhD This note was partially generated using [employer] voice recognition system, and there may be some incorrect words, spellings, and punctuation that were not noted in checking the note before saving. documented in this encounterMet[facility]12-[facility] History of Present illness Narrative* Geovanna Daley MD, PhD - 08/06/2022 10:45 AM EST Images from the original note were not included. NEUROSURGERY FOLLOW UP OFFICE NOTE Geovanna Daley MD, PhD Date of visit: August 06, 2022 Patient Name: Ms.Tracy Rosalie Rocha Date of : 1975 Current Age: [age] year old Sex: female MRN/E# [id number] Last Office Visit: 07/12/2022 Chief Complaint: Patient presents with: Established Patient SUBJECTIVE: HPI She noted acute severe low back pain that radiated into her left lower extremity. She noted she bent over to spanish moss picker a bag and felt a pop in her back. She noted pain and tenderness in her lumbosacralregion across the posterior lumbar region radiating into the left gluteal aspect. She noted the pain radiated down her left lateral thigh and leg below the knee. She noted mild paresthesia to the left lateral leg below the knee and dorsum of her foot. She obtained an MRI of the lumbar spine which demonstrated a mass in the T11-12 aspect. At her last visit on 07/12/2022 she noted left sided low back pain that radiated into her left gluteal aspect and into her hip. She noted the pain radiated down to her lateral calf with numbness and tingling into her foot. She noted weakness to her left lower extremity. She noted her symptoms were worse with lying flat and was sleeping in a chair. She noted when she raised her hands above her head she endorsed electrical like shocks down her lumbar. She noted difficulties ambulating. It was recommended that she obtain an MRI thoracic and lumbar spine as well as a CT lumbar and thoracic spine. She was to follow up once completed, prompting her visit today. Today she states she has been doing well since her last visit. She notes her pain is not as severe,but notes that she has not been doing as much activity as she usually does. She notes at this time the pain to her left lumbar is not present, but if she lifts heavy things then her low back will hurt. She continues with left lateral calf pain. She notes the numbness and tingling to her left foot has improved, but notes at times her foot will feel hot or cold. She notes the electrical shocks in her back when lifting her arms up has also improved. She denies any falls or taking anything for painat this time. She presents for imaging review, evaluation and plan of care. Symptoms: left lateral calf pain. Intermittent left lumbar pain with increased activity. Smoker: endorses. 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 PAST SURGICAL HISTORY Procedure Laterality Date SECTION HX HYSTERECTOMY HX FAMILY HISTORY Problem Relation Age of Onset Diabetes Mother Diabetes Father Rheumatologic disease Father ALLERGIES Allergen Reactions Penicillin Hives No current outpatient medications on file. No current facility-administered medications for this visit. REVIEW OF SYSTEMS Review of Systems Constitutional: Negative for chills, fatigue and fever. HENT: Negative for congestion and sore throat. Eyes: Negative for discharge, itching and visual disturbance. Respiratory: Negative for cough and shortness of breath. Cardiovascular: Negative for chest pain and palpitations. Gastrointestinal: Negative for constipation, diarrhea, nausea and vomiting. Endocrine: Negative for cold intolerance and heat intolerance. Genitourinary: Negative for difficulty urinating, frequency and urgency. Musculoskeletal: Negative for back pain, gait problem, neck pain and neck stiffness. Skin: Negative for rash and wound. Allergic/Immunologic: Negative for environmental allergies and food allergies. Neurological: Positive for headaches. Negative for dizziness, weakness, light- headedness and numbness. Hematological: Does not bruise/bleed easily. Psychiatric/Behavioral: Negative for agitation. The patient is not nervous/anxious. OBJECTIVE: BP 165/91 Pulse 68 Resp 16 Ht 5' 5 (1.65m) Wt 258 lb 2.5 oz (117.1kg) SpO2 100% BMI 42.96 kg/(m^2). Physical Exam On a careful neurological exam today I did not discern any lower extremity weakness nor sensory level nor upper motor neuron findings on Soco despite the lower thoracic disc causing marked spinal cord compression. Data Review IMAGING STUDIES: CT Lumbar Spine 07/18/2022: IMPRESSION: There are scattered changes of lumbar spondylosis and spinal stenosis which are better depicted on the MRI of the lumbar spine obtained on the same day. There is no fracture or destructive process. CT Thoracic Spine 07/18/2022: IMPRESSION: The examination demonstrates extensive disc degenerative changes with narrowing and Schmorl's node formation in the lower thoracic spine along with some central calcified disc protrusions at T9-10 and T10-11 that causes slight central canal narrowing. The extradural soft tissue abnormality seen on the MRI is not well depicted on CT. No other internal derangements of the rest of the thoracic spine are appreciated. MRI Lumbar Spine 07/18/2022: There is a generalized bulge with additional focal disc protrusion at T12-L1 with some epidural enhancing soft tissue connecting to the soft tissue enhancement process from the T11-T12 level. Overall there is mild to moderate right lateral recess and central canal narrowing. At the L1-2 level there is right lateral disc protrusion causing mild to moderate right lateral recess and medial foraminal narrowing. Lateral recess and medial foraminal narrowing. Lesser degrees of disc degeneration and spinal stenosis are identified at all other lumbar levels except for L3-4. MRI Thoracic Spine 07/18/2022: In the thoracic spine the extradural soft tissue abnormality at T11-T12 appears to represent a central disc herniation with extensive surrounding soft tissue inflammatory change which causes a severe central canal and bilateral lateral recess narrowing with extension inferiorly all the way to the T12-L1 disc space but with less mass effect. Additional disc degenerative change with central subligamentous disc protrusion is present at T8-9and T9-T10 with slight to mild central canal narrowing. No other thoracic spine abnormalities are identified. Assessment: The additional imaging that we ordered for Soco has been helpful. The MR with and without contrastis provided reassurance that this epidural mass is a disc herniation and not a tumor. The CT imaging has told us that this disc is not calcified which means that it potentially can reabsorb. It is noteworthy that Soco feels that her discomfort is improving over time and hopefully that means that this disc is reabsorbing. Plan: I had a an extensive discussion with Soco and her mother today about how to handle this disc herniation. I emphasized the importance of minimizing straining and avoiding heavy lifting. As at this point surgery for this disc would be considered prophylactic I I think that it is reasonable to consider watching it and this is indeed Soco's strong preference. I have again emphasized with Soco and her mother that should any neurological symptoms develop such as lower extremity or trunk numbness or leg weakness that should prompt a immediate phone call to my office and consideration of surgery. I did discuss with Galina and her mother the 2 surgical options which would be simple thoracic laminectomy or a larger surgery which would involve at least a 4 level spine fusion to actually remove thedisc. This point Soco indicates that she is confident in her decision to pursue nonoperative management but that she will continue to ponder this issue going forward I will see her again in 3 monthstime. I will not reorder MR imaging at that time. Attestation: The following portions of the patient's history were reviewed, confirmed, and updated as necessary: allergies, current medications, past family history, past medical history, past socialhistory, past surgical history, problem list, HPI, and ROS obtained by others. Some elements may be copied from a previous office note and have been reviewed/updated where appropriate. All portions reflect current medical decision making from today. The clinical and radiographic findings as well as the risks, benefits and alternatives of treatmenthave been reviewed in detail with the patient. The patient was advised to call the office if symptoms worsen or new symptoms develop. The patient expressed understanding and is in agreement with plan. Geovanna Daley MD, PhD This note was partially generated using [employer] voice recognition system, and there may be some incorrect words, spellings, and punctuation that were not noted in checking the note before saving. [facility] History of Present illness Narrative* RT Miguelina(R) - 07/18/2022 1:15 PM EST Radiology Service Progress Note DATE OF SERVICE: July 18, 2022 TIME: 2:20 PM PATIENT IDENTITY VERIFICATION COMPLETED USING TWO (2) STANDARD IDENTIFIERS: Name and Date of confirmed by patient verbally. FALL SCREENING: Has the patient had 2 falls in the last year or 1 fall with injury or currently using an Ambulatory Assistive Device (Walker, Cane, Wheelchair, Crutches, etc.)? No PATIENT GENDER DATA: Female. status: : No status: NO. PATIENT RELEVANT IMPLANT DATA REVIEWED: Yes ALLERGIES: Reviewed and unchanged CONTRAST ALLERGY: NO. EXAM: MRI - CONTRAST TYPE: GROUP II PERIPHERAL IV DATA: Ambulatory: A peripheral IV was started in the Right antecubital site with a Butterfly: 23 gauge. RADIOLOGY DEPARTMENT: MR; Exam(s) Completed: Spine: Thoracic spine and Lumbar spine SIGNATURE: RT Miguelina(R) PATIENT NAME: Soco Rocha DATE: July 18, 2022 TIME: 2:20 PM documented in this encounter[facility] History of Present illness Narrative* Geovanna Daley MD, PhD - 07/12/2022 3:30 PM EST Images from the original note were not included. NEUROSURGERY CONSULT NOTE Geovanna Daley MD, PhD Date of visit: July 12, 2022 Patient Name: Ms.Tracy Rosalie Rocha Date of : 1975 Current Age: [age] year old Sex: female MRN/E# [id number] Chief Complaint: Patient presents with: New Patient HISTORY OF PRESENT ILLNESS : The patient is a 47 year old, right handed female with a past medical history of HTN, morbid obesity and spinal stenosis or the lumbar region who is referred by Dr. Hurst for neurosurgical evaluation. She noted acute severe low back pain that radiated into her left lower extremity. She noted she bent over to spanish moss picker a bag and felt a pop in her back. She noted pain and tenderness in her lumbosacralregion across the posterior lumbar region radiating into the left gluteal aspect. She noted the pain radiated down her left lateral thigh and leg below the knee. She noted mild paresthesia to the left lateral leg below the knee and dorsum of her foot. She obtained an MRI of the lumbar spine which demonstrated a mass in the T11-12 aspect. She was to follow up as outpatient, prompting her visit today. Today she states she is having pain to her left lumbar spine. She notes the pain radiates into the left gluteal and hip aspect. She notes pain to her lateral left calf. She notes numbness and tingling to her foot when her pain is severe. She notes weakness to her left lower extremity. She notes herpain is worse when lying flat or standing and working. She is currently sleeping upright in a chair. She notes her pain is worse when raising her hands above her head and endorses electrical like shocks to her left lumbar aspect. She notes resting improves her symptoms. She notes difficulties ambulating and feels like she's walking with a limp. She denies taking anything for pain at this time. She denies any bowel or bladder dysfunction. She presents for imaging review, evaluation and plan of care. Smoker: endorses. 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 No pertinent past medical history. PAST SURGICAL HISTORY Procedure Laterality Date SECTION HX HYSTERECTOMY HX FAMILY HISTORY Problem Relation Age of Onset Diabetes Mother Diabetes Father Rheumatologic disease Father ALLERGIES Allergen Reactions Penicillin Hives Current Outpatient Medications Medication Sig Dispense Refill methocarbamol (ROBAXIN) 500 mg tablet TAKE 2 TABLETS BY MOUTH 4 TIMES DAILY NEEDED FOR MUSCLE PAIN/SPASM (Patient not taking: Reported on 07/12/2022) methylPREDNISolone (MEDROL DOSE-PACK) 4 mg Dose-Pack TAKE BY MOUTH DIRECTED ON INSIDE OF PACKAGE(Patient not taking: Reported on 07/12/2022) naproxen (NAPROSYN) 500 mg tablet TAKE 1 TABLET BY MOUTH TWICE DAILY NEEDED FOR PAIN FOR 10 DAYS(Patient not taking: Reported on 07/12/2022) oxyCODONE IR (ROXICODONE) 5 mg immediate release tablet (Patient not taking: Reported on 07/12/2022) hydroCHLOROthiazide (HYDRODIURIL, ESIDRIX) 25 mg tablet Take 12.5 mg by mouth. (Patient not taking:Reported on 07/12/2022) oxyCODONE-acetaminophen (PERCOCET) 5-325 mg tablet Take by mouth. (Patient not taking: Reported on 07/12/2022) ondansetron orally disintegrating (ZOFRAN ODT) 4 mg disintegrating tablet Take 2 tablets by mouth every 8 hours as needed for Nausea/Vomiting. (Patient not taking: Reported on 07/12/2022) 12 tablet 0 hydroCHLOROthiazide (HYDRODIURIL, ESIDRIX) 25 mg tablet hydrochlorothiazide 25 mg tablet (Patient not taking: Reported on 07/12/2022) loratadine-pseudoephedrine ER (CLARITIN-D 12) 5-120 mg per tablet Take 1 tablet by mouth twice daily. (Patient not taking: Reported on 07/12/2022) 24 tablet 0 dextromethorphan-guaiFENesin (MUCINEX DM) 30-600 mg per tablet Take 1 tablet by mouth twice daily. (Patient not taking: Reported on 07/12/2022) 14 tablet 0 orphenadrine ER (NORFLEX) 100 mg tablet Take 1 tablet by mouth twice daily. (Patient not taking: Nosig reported) 14 tablet 0 diclofenac, EC, (VOLTAREN) 50 mg EC tablet Take 1 tablet by mouth three times daily. (Patient not taking: No sig reported) [address] (PROTONIX) 40 mg tablet Take 1 tablet by mouth once daily. (Patient not taking: No sig reported) 30 tablet 0 No current facility-administered medications for this visit. 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 She normally does heavy lifting but is currently restricted to 5 pounds only. She vapes. REVIEW OF SYSTEMS Review of Systems Constitutional: Negative for chills, fatigue and fever. HENT: Negative for congestion and sore throat. Eyes: Negative for discharge, itching and visual disturbance. Respiratory: Negative for cough and shortness of breath. Cardiovascular: Negative for chest pain and palpitations. Gastrointestinal: Negative for constipation, diarrhea, nausea and vomiting. Endocrine: Negative for cold intolerance and heat intolerance. Genitourinary: Negative for difficulty urinating, frequency and urgency. Musculoskeletal: Positive for back pain, gait problem, neck pain and neck stiffness. Skin: Negative for rash and wound. Allergic/Immunologic: Negative for environmental allergies and food allergies. Neurological: Positive for headaches. Negative for dizziness, weakness, light- headedness and numbness. Hematological: Does not bruise/bleed easily. Psychiatric/Behavioral: Negative for agitation. The patient is not nervous/anxious. OBJECTIVE: BP 142/85 Pulse 65 Ht 5' 5 (1.65m) Wt 252 lb 3.3 oz (114.4kg) SpO2 98% BMI 41.97 kg/(m^2). PHYSICAL EXAM: General Examination BP 142/85 (BP Site: Right Arm, BP Position: Sitting, BP Cuff Size: Extra Large Adult) Pulse 65 Ht 5' 5 (1.651 m) Wt 252 lb 3.3 oz (114.4 kg) SpO2 98% BMI 41.97 kg/m General Exam Neurological Exam Mental Status Soco exhibited marked tenderness of her lumbar paraspinal region particularly on the left side. I was surprised at how much discomfort she had with even light touch. She did not however appear uncomfortable at baseline. Motor Examination and Coordination Neuromuscular Examination Extremity Muscles Lower Extremity Right Left Hip flexion 5 5 Knee flexion 5 5 Knee extension 5 5 Ankle plantarflexion 5 5 Ankle dorsiflexion 5 5 Reflexes Deep tendon reflexes graded by MRC Deep Tendon Reflexes Right Left Patellar 0 0 Achilles 0 0 Data Review IMAGING STUDIES: MRI Lumbar Spine 07/03/2022: XR Lumbar 06/11/2022: ASSESSMENT: On a careful neurological examination I did not discern any deficits on Soco. Her predominant symptom and concern is her low back pain. Although the lesion looks most consistent with an extra-axial dural based lesion such as a meningioma I do think that it remains a possibility that this is actually a large disc herniation. Indeed the lesion is centered on the disc space. PLAN: I had a long discussion with Soco and her mother about the differential diagnosis here. Prior to seeing her I did not entertain serious consideration of a disc herniation, but I feel this is high onthe differential having assessed her. The godoy next step of course is to obtain lumbar and thoracic MRI scans with and without contrast. It would also help me to understand if this lesion is calcifiedand as such I will order thoracolumbar CT imaging as well. Given its marked importance I spent a long time talking with Soco and her mother about the importance of seeking immediate medical attention if she should begin to develop weakness numbness or otherneurological symptoms in her legs or if she should develop dysfunction of her bowel or bladder. I did discuss with her that her lesion could require surgery and that if she did develop acute deficitsthat emergency surgery could be needed. I had a sense at the end of our discussion that the understood this. I have asked Soco to avoid rigorous physical activity or lifting even moderately weighted items asI am concerned that if this was a disc herniation any further herniation of disc material could puther over the edge and lead to a neurological deficit and need for surgery. We will work to complete Soco's imaging on an urgent basis and I hope to see her again in about 2 weeks. Attestation: The following portions of the patient's history were reviewed, confirmed, and updated as necessary: allergies, current medications, past family history, past medical history, past socialhistory, past surgical history, problem list, HPI, and ROS obtained by others. Some elements may be copied from a previous office note and have been reviewed/updated where appropriate. All portions reflect current medical decision making from today. The clinical and radiographic findings as well as the risks, benefits and alternatives of treatmenthave been reviewed in detail with the patient. The patient was advised to call the office if symptoms worsen or new symptoms develop. The patient expressed understanding and is in agreement with plan. Geovanna Daley MD, PhD This note was partially generated using [employer] voice recognition system, and there may be some incorrect words, spellings, and punctuation that were not noted in checking the note before saving. 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, soft tissue, and skin documented [facility] this encounter [facility]* 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, soft tissue, and skin Schwannoma Other benign neoplasm of connective and other soft tissue of unspecified site [facility]* Diagnosis Lesion of thoracic vertebra- Primary [facility]* Diagnosis Lesion of thoracic vertebra- Primary [facility]* Diagnosis Onset Date Resolution Status Vitamin D deficiency acute Immunization declined noneac tive Moderate major depression no neactive Screening for colon cancer n oneactive Screening for cardiovascular condition noneactive Establishing care with new doctor, encounter for noneactive Electronic cigarette use non eactive Suspected sleep apnea noneac tive Essential hypertension nonea ctive Screening for breast cancer noneactive [facility] Work Phone: Evaluation note* Diagnosis Onset Date Resolution Status Vitamin D deficiency acute Immunization declined noneac tive Moderate major depression no neactive Screening for colon cancer n oneactive Screening for cardiovascular condition noneactive Establishing care with new doctor, encounter for noneactive Electronic cigarette use non eactive Suspected sleep apnea noneac tive Essential hypertension nonea ctive Screening for breast cancer noneactive Elevated TSH acute Moderate major depression no neactive Electronic cigarette use non eactive Suspected sleep apnea noneac tive Essential hypertension nonea ctive Morbid obesity with BMI of 40.0-44.9, adult noneactive [facility] Work Phone: Evaluation note* Diagnosis Radiculopathy of lumbar region- Primary Thoracic or lumbosacral neuritis or radiculitis, unspecified Lesion of thoracic vertebra documented [facility]* Diagnosis Onset Date Resolution Status Vitamin D deficiency acute Immunization declined noneac tive Moderate major depression no neactive Screening for colon cancer n oneactive Screening for cardiovascular condition noneactive Establishing care with new doctor, encounter for noneactive Electronic cigarette use non eactive Suspected sleep apnea noneac tive Essential hypertension nonea ctive Screening for breast cancer noneactive Elevated TSH acute Moderate major depression no neactive Electronic cigarette use non eactive Suspected sleep apnea noneac tive Essential hypertension nonea ctive Morbid obesity with BMI of 40.0-44.9, adult noneactive Elevated TSH acute Subcutaneous nodule of foot noneactive Influenza vaccination declined noneactive Electronic cigarette use non eactive Essential hypertension nonea ctive Morbid obesity with BMI of 40.0-44.9, adult noneactive [facility] Work Phone: Evaluation note* Diagnosis Onset Date Resolution Status Elevated TSH acute Subcutaneous nodule of foot noneactive Influenza vaccination declined noneactive Electronic cigarette use non eactive Essential hypertension nonea ctive Morbid obesity with BMI of 40.0-44.9, adult noneactive Encounter for screening for malignant neoplasm of colon acute Post-polypectomy bleeding ac cezar [facility] Work Phone: Evaluation note* Diagnosis Radiculopathy of lumbar region Thoracic or lumbosacral neuritis or radiculitis, unspecified Lesion of thoracic vertebra documented [facility] this encounter [facility]* Diagnosis Lesion of thoracic vertebra- Primary documented in this encounter [facility] Discharge instructions Additional Instructions Please continue to stretch and heat your low back to help reduce pain and speed healing. If you are not having improvement after this type of treatment along with the prescribed medication he may need to follow-up with orthopedics to discuss need for further testing such as MRI to further evaluate the cause of your back pain. Please return to the ER should you have any further concernsWUniversity [facility]als [facility] Work Phone: Reason for referral (narrative)No reason for referral information availableWUniversity [facility]als [facility] Work Phone: Summary Purpose Family History Relationship Condition Age at Onset Recorded Date/T carrie father Hypertension Unknown Diabetes mellitus Unknown Rheumatoid arthritis Unknown Sleep apnea Unknown mother Diabetes mellitus Unknown Malignant neoplasm Unknown daughter Malignant neoplasm of thyroid gland Unkno wn aunt Malignant neoplasm of breast Unknown grandmother Malignant neoplasm Unknown Relationship Condition Age at Onset Recorded Date/T carrie father Hypertension Unknown Diabetes mellitus Unknown Rheumatoid arthritis Unknown Sleep apnea Unknown Polyp of colon Unknown mother Diabetes mellitus Unknown Malignant neoplasm Unknown daughter Malignant neoplasm of thyroid gland Unkno wn aunt Malignant neoplasm of breast Unknown grandmother Malignant neoplasm Unknown Advance Directives Advance Directive Response Recorded Date/ Time Living Will No June 11 6:39am Power of Insurance Claims Adjuster No June 11, 2022 6:39am Advance Directive Response Recorded Date/ Time Living Will No June 11 5:39am Power of Insurance Claims Adjuster No June 11, 2022 5:39am Advance Directive Response Recorded Date/ Time Living Will No September 26 12:18pm Power of Insurance Claims Adjuster No September 26, 2023 12:18pm Chief Complaint and Reason for Visit Chief Complaint back Chief Complaint back LUMBAR RAD Chief Complaint APPLICATIONS CHEMIST. EST CARE - NEEDS PPW SCREENING Reason for Visit Vitamin D deficiency Immunization declined Moderate major depression Screening for colon cancer Screening for cardiovascular condition Establishing care with new doctor, encounter for Electronic cigarette use Suspected sleep apnea Essential hypertension Screening for breast cancer Chief Complaint APPLICATIONS CHEMIST. EST CARE - NEEDS PPW SCREENING 4 wk fu Reason for Visit Vitamin D deficiency Immunization declined Moderate major depression Screening for colon cancer Screening for cardiovascular condition Establishing care with new doctor, encounter for Electronic cigarette use Suspected sleep apnea Essential hypertension Screening for breast cancer Elevated TSH Moderate major depression Electronic cigarette use Suspected sleep apnea Essential hypertension Morbid obesity with BMI of 40.0-44.9, adult Chief Complaint APPLICATIONS CHEMIST. EST CARE - NEEDS PPW SCREENING 4 wk fu 4 WK FU Reason for Visit Vitamin D deficiency Immunization declined Moderate major depression Screening for colon cancer Screening for cardiovascular condition Establishing care with new doctor, encounter for Electronic cigarette use Suspected sleep apnea Essential hypertension Screening for breast cancer Elevated TSH Moderate major depression Electronic cigarette use Suspected sleep apnea Essential hypertension Morbid obesity with BMI of 40.0-44.9, adult Elevated TSH Subcutaneous nodule of foot Influenza vaccination declined Electronic cigarette use Essential hypertension Morbid obesity with BMI of 40.0-44.9, adult Chief Complaint 4 WK FU Amb Documentation Reason for Visit Elevated TSH Subcutaneous nodule of foot Influenza vaccination declined Electronic cigarette use Essential hypertension Morbid obesity with BMI of 40.0-44.9, adult Encounter for screening for malignant neoplasm of colon Post-polypectomy bleeding Chief Complaint Admit Date THYROID CHECK AND DISCUSS BP August 7:32am NODULE, FH THYROID CANCER August 31 5:26pm SCREENING September 03, 2024 3: 47pm Reason for Visit Admit Date Elevated TSH August 27, 2024 7: 32am Vitamin D deficiency August 27, 2024 7 :32am Thyroid nodule August 27, 2024 7: 32am Screening for cardiovascular condition J anuary 2024 7:32am Influenza vaccination declined August 272024 7:32am Electronic cigarette use August 27 7:32am Essential hypertension August 27, 2024 7:32am Morbid obesity with BMI of 40.0-44.9, ad ult August 27, 2024 7:32am Low energy August 27, 2024 7: 32am Screening for breast cancer August 27, 2024 7:32am Chief Complaint Admit Date Med Follow up April 27, 2025 3:44pm Reason for Referral Specialty Diagnoses / Procedures Referred By Ammy [email or web address] Referred To Contact MR IMAGING Diagnoses Schwannoma Procedures MRI LUMBAR SPINE WO/W IVCON MRI SPINAL CANAL LUMBAR W/O & W/CONTR CLAUDETTEL Geovanna Daley MD, PhD [address] [place] [address] Mr Imaging Referral ID Status Reason Start Date Expiration Date Visits Requested Visits Authorized [id number] Authorized Auto-Generat ed Referral 2 08/11/2023 1 1 Specialty Diagnoses / Procedures Referred By Contac t Referred To Contact CT IMAGING Diagnoses Thoracic spine tumor Procedures CT LUMBAR SPINE WO IVCON CT LUMBAR SPINE W/O CONTRAST MATERIAL Geovanna Daley MD, PhD [address] [facility] [place] [address] Ct Imaging Referral ID Status Reason Start Date Expiration Date Visits Requested Visits Authorized [id number] Authorized Auto-Generat ed Referral 2 08/11/2023 1 1 Specialty Diagnoses / Procedures Referred By Contac t Referred To Contact CT IMAGING Diagnoses Thoracic spine tumor Procedures CT THORACIC SPINE WO IVCON CT THORACIC SPINE W/O CONTRAST MATERIAL Geovanna Daley MD, PhD [address] [facility] [place] [address] Ct Imaging Referral ID Status Reason Start Date Expiration Date Visits Requested Visits Authorized [id number] Pending Review Auto-Generat ed Referral 08/11/2023 1 1 Specialty Diagnoses / Procedures Referred By Contac t Referred To Contact MR IMAGING Diagnoses Thoracic spine tumor Procedures MRI THORACIC SPINE WO/W IVCON MRI SPINAL CANAL THORACIC W/O & W/CONTR MATRL Geovanna Daley MD, PhD [address] [place] [address] Mr Imaging Referral ID Status Reason Start Date Expiration Date Visits Requested Visits Authorized [id number] Authorized Auto-Generat ed Referral 08/11/2023 1 1 Referral ID Status Reason Start Date Expiration Date V isits Requested Visits Authorized [id number] Closed Auto-Generate d Referral 07/12/2022 08/11/2023 1 1 Referral ID Status Reason Start Date Expiration Date V isits Requested Visits Authorized [id number] Closed Auto-Generate d Referral 07/13/2022 08/11/2022 1 1 Referral ID Status Reason Start Date Expiration Date V isits Requested Visits Authorized [id number] Closed Auto-Generate d Referral 07/12/2022 08/11/2023 1 1 Referral ID Status Reason Start Date Expiration Date V isits Requested Visits Authorized [id number] Closed Auto-Generate d Referral 07/12/2022 08/11/2023 1 1 Specialty Diagnoses / Procedures Referred By Contac t Referred To Contact MR IMAGING Diagnoses Radiculopathy of lumbar region Lesion of thoracic vertebra Procedures MRI THORACIC SPINE WO IVCON MRI SPINAL CANAL THORACIC W/O CONTRAST Geovanna Alvarez MD, PhD [address] [facility] [address] [place] [id number] Referral ID Status Reason Start Date Expiration Date Visits Requested Visits Authorized [id number] Authorized Auto-Generat ed Referral 05/16/2023 06/14/2024 1 1 Additional Source Comments INFORMATION SOURCE (unrecogn ized section and content) DATE CREATED AUTHOR 02/18/2018 [facility] DATE CREATED AUTHOR AUTHOR'S ORGANIZ ATION 08/10/2018 [facility] DATE CREATED AUTHOR AUTHOR'S ORGANIZ ATION 04/30/2020 [facility] DATE CREATED AUTHOR AUTHOR'S ORGANIZ ATION 05/22/2024 [facility] DATE CREATED AUTHOR AUTHOR'S ORGANIZ ATION [facility] Goals (unrecognized section and content) Goals may be documented in a n alternate sectionGoals may be documented in an alternate sectionGoals may be documented in an alternate sectionGoals may be documented in an alternate sectionGoals may be documented in an alternate sectionGoals may be documented in an alternate sectionGoals may be documented in an alternate section Source Comments (unrecognize d section and content) In the event this informatio n is protected by the Federal Confidentiality of Alcohol and Drug Abuse Patient Records regulations: The Federal rules restrict any use of the information to criminally investigate or prosecute any alcohol or drug abuse patient.[facility] the event this information is protected by the Federal Confidentiality of Alcohol and Drug Abuse Patient Records regulations: The Federal rules restrict any use of the information to criminally investigate or prosecute any alcohol or drug abuse patient.[facility] Center[facility] the event this information is protected by the Federal Confidentiality of Alcohol and Drug Abuse Patient Records regulations: The Federal rules restrict any use of the information to criminally investigate or prosecute any alcohol or drug abuse patient.[facility] the event this information is protected by the Federal Confidentiality of Alcohol and Drug Abuse Patient Records regulations: The Federal rules restrict any use of the information to criminally investigate or prosecute any alcohol or drug abuse patient.[facility] Center[facility] the event this information is protected by the Federal Confidentiality of Alcohol and Drug Abuse Patient Records regulations: The Federal rules restrict any use of the information to criminally investigate or prosecute any alcohol or drug abuse patient.[facility] CenterIn the event this information is protected by the Federal Confidentiality of Alcohol and Drug Abuse Patient Records regulations: The Federal rules restrict any use of the information to criminally investigate or prosecute any alcohol or drug abuse patient.[facility] CenterIn the event this information is protected by the Federal Confidentiality of Alcohol and Drug Abuse Patient Records regulations: The Federal rules restrict any use of the information to criminally investigate or prosecute any alcohol or drug abuse patient.[facility] CenterIn the event this information is protected by the Federal Confidentiality of Alcohol and Drug Abuse Patient Records regulations: The Federal rules restrict any use of the information to criminally investigate or prosecute any alcohol or drug abuse patient.[facility] Reason for Visit (unrecogniz ed section and content) Reason Comments New Patient Specialty Diagnoses / Procedures Referred By Contac t Referred To Contact CT IMAGING Diagnoses Thoracic spine tumor Procedures CT LUMBAR SPINE WO IVCON CT LUMBAR SPINE W/O CONTRAST MATERIAL Geovanna Daley MD, PhD [address] [facility] [place] [address] Ct Imaging Referral ID Status Reason Start Date Expiration Date V isits Requested Visits Authorized [id number] Closed Auto-Generate d Referral 07/12/2022 08/11/2023 1 1 Specialty Diagnoses / Procedures Referred By Contac t Referred To Contact MR IMAGING Diagnoses Schwannoma Procedures MRI LUMBAR SPINE WO/W IVCON MRI SPINAL CANAL LUMBAR W/O & W/CONTR Geovanna Alvarez MD, PhD [address] [place] [address] Mr Imaging Referral ID Status Reason Start Date Expiration Date V isits Requested Visits Authorized [id number] Closed Auto-Generate d Referral 07/12/2022 08/11/2023 1 1 Reason Comments Established Patient Reason Comments Established Patient Specialty Diagnoses / Procedures Referred By Contac t Referred To Contact MR IMAGING Diagnoses Radiculopathy of lumbar region Lesion of thoracic vertebra Procedures MRI THORACIC SPINE WO IVCON MRI SPINAL CANAL THORACIC W/O CONTRAST Geovanna Alvarez MD, PhD [address] [place] [address] [place] [address] Referral ID Status Reason Start Date Expiration Date V isits Requested Visits Authorized [id number] Closed Auto-Generate d Referral 05/16/2023 06/14/2024 1 1 Care Teams (unrecognized sec tion and content) Team Status: Active Member Role Status Dates No Primary Care Physician Family Provider Active Dr. Romina Francois MD Primary Care Provider Active Team Status: Inactive Member Role Status Dates No Primary Care Physician Primary Care Provider, Refer ring Provider Active Dr. Romina Francois MD Attending Provider Active Team Status: Inactive Member Role Status Dates Dr. Romina Francois MD Primary Care Pro vider, Attending Provider, Referring Provider Active Team Status: Inactive Member Role Status Dates No Primary Care Physician Primary Care Provider Active Dr. Romina Francois MD Attending Provider, Referring Provider Active Team Status: Inactive Member Role Status Dates No Primary Care Physician Referring Provider Active Dr. Romina Francois MD Primary Care Provider, Attendi ng Provider Active Team Status: Active Member Role Status Dates Dr. Romina Francois MD Primary Care Provider Active [facility] Attending Provider Active Team Status: Active Member Role Status Dates Dr. Romina Francois MD Primary Care Provider, Referri ng Provider Active Dr. Eros Jennings MD Attending Provider, Other Provider Active Team Status: Inactive Member Role Status Dates Dr. Romina Francois MD Primary Care Provider, Referri ng Provider Active Dr. Eros Jennings MD Attending Provider Active Team Status: Inactive Member Role Status Dates Dr. Romina Francois MD Primary Care Provider Active Start: August 27, 2024 End: August 27, 2024 Dr. Romina Francois MD Attending Provider Active Start: August 27, 2024 End: August 27, 2024 Dr. Romina Francois MD Referring Provider Active Start: August 27, 2024 End: August 27, 2024 Team Status: Inactive Member Role Status Dates Dr. Romina Francois MD Primary Care Provider Active Start: August 31, 2024 End: August 31, 2024 Dr. Romina Francois MD Attending Provider Active Start: August 31, 2024 End: August 31, 2024 Dr. Romina Francois MD Referring Provider Active Start: August 31, 2024 End: August 31, 2024 Team Status: Inactive Member Role Status Dates Dr. Romina Francois MD Primary Care Provider Active Start: September 03, 2024 End: September 03, 2024 Dr. Romina Francois MD Attending Provider Active Start: September 03, 2024 End: September 03, 2024 Dr. Romina Francois MD Referring Provider Active Start: September 03, 2024 End: September 03, 2024 Team Status: Inactive Member Role Status Dates Dr. Romina Francois MD Primary Care Provider Active Start: October 22, 2024 End: October 22, 2024 Dr. Romina Francois MD Attending Provider Active Start: October 22, 2024 End: October 22, 2024 Dr. Romina Francois MD Referring Provider Active Start: October 22, 2024 End: October 22, 2024 Team Status: Active Member Role/Relationship Status Dates No Primary Care Physician Family Provider Active Dr. Romina Francois MD Primary Care Provider Active Team Status: Inactive Member Role/Relationship Status Dates Dr. Romina Francois MD Primary Care Provider Active Start: April 27, 2025 End: April 27, 2025 Dr. Romina Farncois MD Referring Provider Active Start: April 27, 2025 End: April 27, 2025 ANA Young Attending Provider Active Start: April 27, 2025 End: April 27, 2025 Team Status: Active Member Role/Relationship Status Dates Dr. Romina Francois MD Primary Care Provider Active Start: April 27, 2025 ANA Young Attending Provider Active Start: April 27, 2025 FOR RECORDS PERTAINING TO PATIENTS WHO ARE OR HAVE BEEN ENROLLED IN A CHEMICAL DEPENDENCY/SUBSTANCEABUSE PROGRAM, SOME INFORMATION MAY BE OMITTED. This clinical summary was aggregated from multiple sources. Caution should be exercised in using it in the provision of clinical care. This summary normalizes information from multiple sources, and as a consequence, information in this document may materially change the coding, format and clinical context of patient data. In addition, data may be omitted in some cases. CLINICAL DECISIONS SHOULD BE BASED ON THE PRIMARY CLINICAL RECORDS. [facility] [employer] provides no warranty or guarantee of the accuracy or completeness of information in this document.
== END | disposition home or self-care (01) ==
LOC: BIMLAB 16:21
PROVIDERS: PCP Internal Medicine; Visit Provider Nurse Practitioner Family
DX: Z00.00 Encounter for general adult medical examination without abnormal findings (principal)